=== PATIENT | female | born 1945 | race Caucasian/White ===

== ENCOUNTER 2018-05-02 14:57 | Inpatient (IN) | payer MEDICARE, OTHER ==
--- NOTE | 2018-05-02 16:25 | ED ---
General Adult HPI <Geoffrey Arrington - Last Filed: 05/02/18 17:33> - General Source: patient, RN notes reviewed Mode of arrival: ambulatory Limitations: no limitations <Larry Guy - Last Filed: 05/02/18 17:35> - General Chief complaint: Wound/Laceration Stated complaint: wounds not healing Time Seen by Provider: 05/02/18 15:51 - History of Present Illness Initial comments: This is a 72-year-old female presents emergency Department from a body art technician office for chronic wounds. Patient states that she's been having worsening wounds to her left leg and which she has been on Keflex 4 times a day for last 7 days with worsening symptoms. She states that she's had prior amputation and multiple infections secondary to being diabetic and have diabetic foot wound. Patient states that her body art technician Dr. Reyna recommended her to go emergency department for IV antibiotic secondary to worsening wounds after being on Keflex. Patient reports no fever or chills. She has neuropathy of her feet and legs and has no current pain. (Larry Guy) - Related Data Home Medications Medication Instructions Recorded Confirmed Cephalexin [Keflex] 500 mg PO Q6HR 05/02/18 05/02/18 Clopidogrel [Plavix] 75 mg PO DAILY 05/02/18 05/02/18 Enalapril [Vasotec] 20 mg PO DAILY 05/02/18 05/02/18 Escitalopram [Lexapro] 20 mg PO DAILY 05/02/18 05/02/18 Gabapentin 800 mg PO BID 05/02/18 05/02/18 Gentamicin 0.1% Cream 1 applic TOPICAL BID 05/02/18 05/02/18 Hydrochlorothiazide 50 mg PO DAILY 05/02/18 05/02/18 Ibuprofen [Motrin Ib] 400 mg PO Q6H PRN 05/02/18 05/02/18 Insulin NPH Hum/Reg Insulin Hm 80 unit SQ BID 05/02/18 05/02/18 [NovoLIN 70-30 100 UNIT/ML VIAL] Lovastatin [Mevacor] 20 mg PO HS 05/02/18 05/02/18 metFORMIN HCL 1,000 mg PO BID 05/02/18 05/02/18 Allergies Allergy/AdvReac Type Severity Reaction Status Date / Time adhesive tape Allergy Unknown Verified 05/02/18 17:06 miconazole Allergy Unknown Verified 05/02/18 17:06 [From Neosporin AF] morphine Allergy Unknown Verified 05/02/18 17:06 Penicillins Allergy Unknown Verified 05/02/18 17:06 Sulfa (Sulfonamide Allergy Unknown Verified 05/02/18 17:06 Antibiotics) Review of Systems ROS Other: All systems not noted in ROS Statement are negative. <Geoffrey Arrington - Last Filed: 05/02/18 17:33> ROS Other: All systems not noted in ROS Statement are negative. <Larry Guy - Last Filed: 05/02/18 17:35> ROS Statement: Those systems with pertinent positive or pertinent negative responses have been documented in the HPI. Past Medical History Past Medical History: Diabetes Mellitus, Hyperlipidemia, Hypertension Additional Past Medical History / Comment(s): 3 TOES AMPUTATED History of Any Multi-Drug Resistant Organisms: None Reported Additional Past Surgical History / Comment(s): CYST REMOVAL ON LEGS Past Psychological History: No Psychological Hx Reported Smoking Status: Former smoker Past Alcohol Use History: Occasional Past Drug Use History: None Reported <Larry Guy - Last Filed: 05/02/18 17:35> General Exam Limitations: no limitations General appearance: alert, in no apparent distress Head exam: Present: atraumatic, normocephalic, normal inspection Neck exam: Present: normal inspection. Absent: tenderness, meningismus, lymphadenopathy Respiratory exam: Present: normal lung sounds bilaterally. Absent: respiratory distress, wheezes, rales, rhonchi, stridor Cardiovascular Exam: Present: regular rate, normal rhythm, normal heart sounds. Absent: systolic murmur, diastolic murmur, rubs, gallop, clicks Extremities exam: Present: other (Left lower extremity there are some wounds noted, one open wound with mild erythema increased warmth noted left lower extremity pulses equal bilaterally the lower extremities are amputation of digits 2 and 3 on the left.) Skin exam: Present: warm, dry, intact, normal color. Absent: rash <Larry Guy - Last Filed: 05/02/18 17:35> Course <Geoffrey Arrington - Last Filed: 05/02/18 17:33> <Larry Guy - Last Filed: 05/02/18 17:35> Vital Signs 05/02/18 15:31 Temperature 98.4 F Pulse Rate 91 Respiratory 16 Rate Blood Pressure 96/57 O2 Sat by Pulse 93 L Oximetry - Reevaluation(s) Reevaluation #1: 05/02/18 17:34 Patient reevaluated and resting comfortably in bed. Patient does have evidence of cellulitis of left lower leg. Distally the extremity is neurovascularly intact. Family states no improvement despite outpatient antibiotics for the past week. Patient does not meet sepsis criteria. Case was discussed in detail with Dr. Rangel, who will admit for Dr. spencer. (Geoffrey Arrington) Medical Decision Making - Lab Data Result diagrams: 05/02/18 16:40 05/02/18 16:40 <Geoffrey Arrington - Last Filed: 05/02/18 17:33> - Lab Data Result diagrams: 05/02/18 16:40 05/02/18 16:40 <Larry Guy - Last Filed: 05/02/18 17:35> - Lab Data Lab Results 05/02/18 05/02/18 05/02/18 Range/Units 16:40 16:40 16:40 WBC 10.6 (3.8-10.6) k/uL RBC 5.45 H (3.80-5.40) m/uL Hgb 15.6 (11.4-16.0) gm/dL Hct 50.3 H (34.0-46.0) % MCV 92.4 (80.0-100.0) fL MCH 28.7 (25.0-35.0) pg MCHC 31.1 (31.0-37.0) g/dL RDW 14.2 (11.5-15.5) % Plt Count 251 (150-450) k/uL Neutrophils % 71 % Lymphocytes % 18 % Monocytes % 7 % Eosinophils % 2 % Basophils % 1 % Neutrophils # 7.5 (1.3-7.7) k/uL Lymphocytes # 1.9 (1.0-4.8) k/uL Monocytes # 0.7 (0-1.0) k/uL Eosinophils # 0.2 (0-0.7) k/uL Basophils # 0.1 (0-0.2) k/uL PT 11.1 (9.0-12.0) sec INR 1.1 (<1.2) APTT 19.8 L (22.0-30.0) sec Sodium 140 (137-145) mmol/L Potassium 4.6 (3.5-5.1) mmol/L Chloride 101 (98-107) mmol/L Carbon Dioxide 30 (22-30) mmol/L Anion Gap 9 mmol/L BUN 25 H (7-17) mg/dL Creatinine 0.83 (0.52-1.04) mg/dL Est GFR (CKD-EPI)AfAm 83 (>60 ml/min/1.73 sqM) Est GFR (CKD-EPI)NonAf 72 (>60 ml/min/1.73 sqM) Glucose 101 H (74-99) mg/dL Calcium 8.7 (8.4-10.2) mg/dL Total Bilirubin 0.9 (0.2-1.3) mg/dL AST 23 (14-36) U/L ALT 27 (9-52) U/L Alkaline Phosphatase 72 (38-126) U/L Total Protein 6.2 L (6.3-8.2) g/dL Albumin 3.5 (3.5-5.0) g/dL Disposition <Geoffrey Arrington - Last Filed: 05/02/18 17:33> <Larry Guy - Last Filed: 05/02/18 17:35> Clinical Impression: Cellulitis of left leg, Failure of outpatient treatment Disposition: ADMITTED IP TO THIS HOSP Condition: Stable Referrals: Socorro Fry MD [Primary Care Provider] - 1-2 days
--- NOTE | 2018-05-02 16:42 | XR ---
EXAMINATION TYPE: XR tibia fibula LT DATE OF EXAM: 05/02/2018 COMPARISON: None HISTORY: Nonhealing wound lower extremity TECHNIQUE: 2 view tibia and fibula FINDINGS: Soft tissues appear normal. Osseous structures appear normal. Vascular calcification is pre sent. Degenerative joint changes are at the knee. IMPRESSION: 1. No suspicious acute osseous abnormality. 2. If there is sufficient clinical concern for osteomyelitis, three-phase bone scan could be performe d.
[2018-05-02 17:00] LABS: Basophils # (A) 0.1 k/uL (0-0.2); Basophils % (A) 1 %; Eosinophils # (A) 0.2 k/uL (0-0.7); Eosinophils % (A) 2 %; HCT 50.3 % (34.0-46.0); HGB 15.6 gm/dL (11.4-16.0); Lymphocytes # (A) 1.9 k/uL (1.0-4.8); Lymphocytes % (A) 18 %; MCH 28.7 pg (25.0-35.0); MCHC 31.1 g/dL (31.0-37.0); MCV 92.4 fL (80.0-100.0); Mean Platelet Volume 7.5; Monocytes # (A) 0.7 k/uL (0-1.0); Monocytes % (A) 7 %; Neutrophils # (A) 7.5 k/uL (1.3-7.7); Neutrophils % (A) 71 %; Platelet Count 251 k/uL (150-450); RBC 5.45 m/uL (3.80-5.40); RDW 14.2 % (11.5-15.5); WBC 10.6 k/uL (3.8-10.6)
[2018-05-02 17:14] LABS: Albumin 3.5 g/dL (3.5-5.0); Calcium 8.7 mg/dL (8.4-10.2); Potassium 4.6 mmol/L (3.5-5.1); Total Bilirubin 0.9 mg/dL (0.2-1.3); Total Protein 6.2 g/dL (6.3-8.2)
[2018-05-02 17:16] LABS: INR 1.1 (<1.2); Prothrombin Time 11.1 sec (9.0-12.0)
[2018-05-02 17:28] LABS: Partial Thromboplastin Time 19.8 sec (22.0-30.0)
[2018-05-02] MEDS ORDERED: VANCOMYCIN IV PER PHARMACY 1 EACH MISC MISCELLANE PRN (17:33)
[2018-05-02] MEDS ORDERED: VANCOMYCIN 2,250 MG in SODIUM CHLORIDE 0.9% 500 ML IVPB STA (17:36)
[2018-05-02 20:08] LABS: Glucose,Whole Blood 92 mg/dL (75-99)
[2018-05-02] MEDS: INSULIN NPH/REG INSULIN 70/30 300 UNIT/3 ML VIAL SQ SCH (23:27)
[2018-05-02] MEDS: GABAPENTIN 400 MG CAP PO SCH (23:27)
[2018-05-02] MEDS: ATORVASTATIN 10 MG TAB PO SCH (23:28)
[2018-05-03 03:25] LABS: Glucose,Whole Blood 58 mg/dL (75-99)
[2018-05-03 03:35] LABS: Glucose,Whole Blood 76 mg/dL (75-99)
[2018-05-03] MEDS: VANCOMYCIN 2,250 MG in SODIUM CHLORIDE 0.9% 500 ML IVPB SCH ×2 (05:50→21:24)
[2018-05-03 07:29] LABS: Glucose,Whole Blood 82 mg/dL (75-99)
[2018-05-03] MEDS: INSULIN NPH/REG INSULIN 70/30 300 UNIT/3 ML VIAL SQ SCH ×2 (08:41→21:23)
[2018-05-03] MEDS: LISINOPRIL 20 MG TAB PO SCH (08:46)
[2018-05-03] MEDS: GABAPENTIN 400 MG CAP PO SCH ×2 (08:46→21:23)
[2018-05-03] MEDS: ESCITALOPRAM 20 MG TAB PO SCH (08:46)
[2018-05-03] MEDS: CLOPIDOGREL 75 MG TAB PO SCH (08:46)
[2018-05-03] MEDS: HYDROCHLOROTHIAZIDE 50 MG TAB PO SCH (08:47)
[2018-05-03 11:59] LABS: Glucose,Whole Blood 104 mg/dL (75-99)
--- NOTE | 2018-05-03 14:39 | P.HPIM ---
History of Present Illness H&P Date: 05/03/18 Chief Complaint: Left lower extremity cellulitis Lindsey Galarza is a 72-year-old female patient of Dr. Marybeth roach, who presented to [facility] emergency room due to left lower extremity erythema swelling and tenderness in the pretibial area. Patient stated that she started developing a fluid-filled blister in the left pretibial area she was seen by her primary care physician and by her shirt line operator Dr. Reyna she was placed on an oral course of antibiotic Keflex however her condition continued to worsen, she was reevaluated by her shirt line operator and was told to come to emergency room for further evaluation and treatment with IV antibiotic due to failure of oral antibiotic therapy as outpatient. Patient had a prolonged history of bilateral lower extremity infections she has previous amputation of 2 toes on the left foot and one toe on the right foot due to previous infections, she has known history of diabetes mellitus maintained on insulin with good control per patient she states that her last hemoglobin A1c was 7.3 She states that she recently had an arterial and venous Doppler of the lower extremity as outpatient. Past Medical History Past Medical History: Diabetes Mellitus, Hyperlipidemia, Hypertension, Osteoarthritis (OA), Pneumonia Additional Past Medical History / Comment(s): neuropathy to legs/feet, lt eye gets blurry at times,occ heart burn takes tums,wounds lt lower ext History of Any Multi-Drug Resistant Organisms: None Reported Past Surgical History: Tonsillectomy Additional Past Surgical History / Comment(s): CYST REMOVAL ON LEGS, rt 3rd toe amp, left 2nd and 3rd toes amp, benign lumps removed from breasts, melita cataracts , venous doppler studies Past Anesthesia/Blood Transfusion Reactions: No Reported Reaction Additional Past Anesthesia/Blood Transfusion Reaction / Comment(s): clausterphobia Smoking Status: Former smoker - Past Family History Father Family Medical History: Myocardial Infarction ([place]) Additional Family Medical History / Comment(s): smoked Mother Family Medical History: CVA/TIA Additional Family Medical History / Comment(s): heart problems, schizophrenia Brother(s) Family Medical History: Cancer Additional Family Medical History / Comment(s): pancareatic cacner Medications and Allergies Home Medications Medication Instructions Recorded Confirmed Type Cephalexin [Keflex] 500 mg PO Q6HR 05/02/18 05/02/18 History Clopidogrel [Plavix] 75 mg PO DAILY 05/02/18 05/02/18 History Enalapril [Vasotec] 20 mg PO DAILY 05/02/18 05/02/18 History Escitalopram [Lexapro] 20 mg PO DAILY 05/02/18 05/02/18 History Gabapentin 800 mg PO BID 05/02/18 05/02/18 History Gentamicin 0.1% Cream 1 applic TOPICAL BID 05/02/18 05/02/18 History Hydrochlorothiazide 50 mg PO DAILY 05/02/18 05/02/18 History Ibuprofen [Motrin Ib] 400 mg PO Q6H PRN 05/02/18 05/02/18 History Insulin NPH Hum/Reg Insulin Hm 80 unit SQ BID 05/02/18 05/02/18 History [NovoLIN 70-30 100 UNIT/ML VIAL] Lovastatin [Mevacor] 20 mg PO HS 05/02/18 05/02/18 History metFORMIN HCL 1,000 mg PO BID 05/02/18 05/02/18 History Allergies Allergy/AdvReac Type Severity Reaction Status Date / Time adhesive tape Allergy Unknown Verified 05/02/18 17:06 miconazole Allergy Unknown Verified 05/02/18 17:06 [From Neosporin AF] morphine Allergy Unknown Verified 05/02/18 21:07 Penicillins Allergy Unknown Verified 05/02/18 17:06 Sulfa (Sulfonamide Allergy Unknown Verified 05/02/18 17:06 Antibiotics) Physical Exam Vitals: Vital Signs Temp Pulse Pulse Resp BP BP Pulse Ox 05/03/18 08:00 82 16 05/03/18 03:27 82 128/105 05/02/18 18:50 98.2 F 90 16 105/66 98 05/02/18 17:00 98.7 F 95 16 108/60 95 05/02/18 15:31 98.4 F 91 16 96/57 93 L Intake and Output 05/02/18 05/03/18 05/03/18 22:59 06:59 14:59 Intake Total 500 620 480 Balance 500 620 480 Intake: IV 500 620 Vancomycin 2,250 mg In 500 Sodium Chloride 0.9% 500 ml @ 167 mls/hr IVPB ONCE STA Rx#:[id number] Vancomycin 2,250 mg In 500 Sodium Chloride 0.9% 500 ml @ 167 mls/hr IVPB Q16H NELA Rx#:[id number] ns@20 120 Oral 480 Other: Voiding Method Toilet Toilet # Voids 1 1 Weight 158.757 kg HEENT head normocephalic and atraumatic Neck is supple no JVD no goiter no lymphadenopathy Chest exam reveals a few scattered crackles no wheezing Cardiac exam reveals regular heart sounds S1 and S2 no gallops no murmurs Abdomen is soft nontender no organomegaly with normal bowel sounds Extremity exam reveals 1+ edema bilaterally there is erythema and tenderness in the left pretibial area there is healing blister in the left pretibial area Neurological examination reveals no gross focal deficits Results CBC & Chem 7: 05/02/18 16:40 05/02/18 16:40 Labs: Abnormal Lab Results - Last 24 Hours (Table) 05/02/18 05/02/18 05/02/18 Range/Units 16:40 16:40 16:40 RBC 5.45 H (3.80-5.40) m/uL Hct 50.3 H (34.0-46.0) % APTT 19.8 L (22.0-30.0) sec BUN 25 H (7-17) mg/dL Glucose 101 H (74-99) mg/dL POC Glucose (mg/dL) (75-99) mg/dL Total Protein 6.2 L (6.3-8.2) g/dL 05/03/18 05/03/18 Range/Units 03:23 11:58 RBC (3.80-5.40) m/uL Hct (34.0-46.0) % APTT (22.0-30.0) sec BUN (7-17) mg/dL Glucose (74-99) mg/dL POC Glucose (mg/dL) 58 L 104 H (75-99) mg/dL Total Protein (6.3-8.2) g/dL Microbiology - Last 24 Hours (Table) 05/02/18 18:01 Gram Stain - Preliminary Leg - Left Wound Culture - Preliminary Assessment and Plan Plan: #1 left lower extremity cellulitis in the pretibial area, with failed oral antibiotic treatment as outpatient currently maintained on IV vancomycin, blood culture are pending #2 underlying history of multiple infections in the past and previous toe amputations due to previous infections #3 underlying history of diabetes mellitus #4 underlying history of depression #5 underlying history of morbid obesity #6 underlying history of hyperlipidemia maintained on Lipitor #7 underlying history of referral neuropathy maintained on Neurontin At this time continue with IV antibiotic Home medications reviewed and reordered Awaiting culture results Infectious disease consultation was requested Will follow closely
[2018-05-03 21:23] LABS: Glucose,Whole Blood 109 mg/dL (75-99)
[2018-05-03] MEDS: ATORVASTATIN 10 MG TAB PO SCH (21:23)
[2018-05-04 07:17] LABS: Glucose,Whole Blood 108 mg/dL (75-99)
[2018-05-04] MEDS: ACETAMINOPHEN TAB 325 MG TAB PO PRN (08:10)
[2018-05-04] MEDS: HYDROCHLOROTHIAZIDE 50 MG TAB PO SCH (08:16)
[2018-05-04] MEDS: GABAPENTIN 400 MG CAP PO SCH ×2 (08:16→20:53)
[2018-05-04] MEDS: LISINOPRIL 20 MG TAB PO SCH (08:16)
[2018-05-04] MEDS: INSULIN NPH/REG INSULIN 70/30 300 UNIT/3 ML VIAL SQ SCH ×2 (08:16→22:14)
[2018-05-04] MEDS: CLOPIDOGREL 75 MG TAB PO SCH (08:16)
[2018-05-04] MEDS: ESCITALOPRAM 20 MG TAB PO SCH (08:16)
[2018-05-04 11:17] LABS: Albumin 3.5 g/dL (3.5-5.0); Calcium 8.6 mg/dL (8.4-10.2); Potassium 5.4 mmol/L (3.5-5.1); Total Protein 6.6 g/dL (6.3-8.2)
[2018-05-04 11:18] LABS: Basophils % (A) 1 %; Eosinophils # (A) 0.2 k/uL (0-0.7); Eosinophils % (A) 3 %; HCT 47.8 % (34.0-46.0); HGB 15.1 gm/dL (11.4-16.0); Hypochromasia Slight; Lymphocytes # (A) 1.7 k/uL (1.0-4.8); Lymphocytes % (A) 21 %; MCH 29.6 pg (25.0-35.0); MCHC 31.7 g/dL (31.0-37.0); MCV 93.3 fL (80.0-100.0); Mean Platelet Volume 7.8; Monocytes # (A) 0.7 k/uL (0-1.0); Monocytes % (A) 10 %; Neutrophils # (A) 4.9 k/uL (1.3-7.7); Neutrophils % (A) 63 %; Platelet Count 216 k/uL (150-450); RBC 5.12 m/uL (3.80-5.40); RDW 14.2 % (11.5-15.5); WBC 7.8 k/uL (3.8-10.6)
[2018-05-04 11:26] LABS: Glucose,Whole Blood 182 mg/dL (75-99)
[2018-05-04] MEDS: VANCOMYCIN 2,250 MG in SODIUM CHLORIDE 0.9% 500 ML IVPB SCH (14:29)
--- NOTE | 2018-05-04 14:35 | P.PN ---
Subjective Progress Note Date: 05/04/18 Lindsey Galarza is a 72-year-old female patient of Dr. Marybeth roach, who presented to [facility] emergency room due to left lower extremity erythema swelling and tenderness in the pretibial area. Patient stated that she started developing a fluid-filled blister in the left pretibial area she was seen by her primary care physician and by her sales engineer account manager Dr. Reyna she was placed on an oral course of antibiotic Keflex however her condition continued to worsen, she was reevaluated by her sales engineer account manager and was told to come to emergency room for further evaluation and treatment with IV antibiotic due to failure of oral antibiotic therapy as outpatient. Patient had a prolonged history of bilateral lower extremity infections she has previous amputation of 2 toes on the left foot and one toe on the right foot due to previous infections, she has known history of diabetes mellitus maintained on insulin with good control per patient she states that her last hemoglobin A1c was 7.3 She states that she recently had an arterial and venous Doppler of the lower extremity as outpatient. On 05/04/2018 patient was seen and examined on the fifth floor she is alert and oriented 3 in no apparent distress she is still complaining of swelling erythema and tenderness in the left lower extremity pretibial area there is minimal change since yesterday, otherwise she denies any complaints at this time. Objective - Vital Signs Vital signs: Vital Signs Temp 97.7 F 05/04/18 12:57 Pulse 76 05/04/18 12:57 Resp 18 05/04/18 12:57 BP 134/65 05/04/18 12:57 Pulse Ox 93 L 05/04/18 12:57 Intake & Output 05/03/18 05/04/18 05/04/18 18:59 06:59 18:59 Intake Total 2180 960 1460 Balance 2180 960 1460 Intake: IV 720 Vancomycin 2,250 mg In 500 Sodium Chloride 0.9% 500 ml @ 167 mls/hr IVPB Q16H NELA Rx#:[id number] ns@20 220 Intake, IV Titration 500 500 Amount Vancomycin 2,250 mg In 500 Sodium Chloride 0.9% 500 ml @ 167 mls/hr IVPB ONCE STA Rx#:[id number] Vancomycin 2,250 mg In 500 Sodium Chloride 0.9% 500 ml @ 167 mls/hr IVPB Q16H NELA Rx#:[id number] Oral 1680 240 960 Other: Voiding Method Toilet Toilet Toilet # Voids 3 3 - Exam HEENT head normocephalic and atraumatic Neck is supple no JVD no goiter no lymphadenopathy Chest exam reveals a few scattered crackles no wheezing Cardiac exam reveals regular heart sounds S1 and S2 no gallops no murmurs Abdomen is soft nontender no organomegaly with normal bowel sounds Extremity exam reveals 1+ edema bilaterally there is erythema and tenderness in the left pretibial area there is healing blister in the left pretibial area Neurological examination reveals no gross focal deficits - Labs CBC & Chem 7: 05/04/18 10:20 05/04/18 10:20 Labs: Abnormal Lab Results - Last 24 Hours (Table) 05/03/18 05/04/18 05/04/18 Range/Units 21:22 07:15 10:20 Hct 47.8 H (34.0-46.0) % Potassium (3.5-5.1) mmol/L Carbon Dioxide (22-30) mmol/L BUN (7-17) mg/dL Glucose (74-99) mg/dL POC Glucose (mg/dL) 109 H 108 H (75-99) mg/dL 05/04/18 05/04/18 Range/Units 10:20 11:23 Hct (34.0-46.0) % Potassium 5.4 H (3.5-5.1) mmol/L Carbon Dioxide 31 H (22-30) mmol/L BUN 36 H (7-17) mg/dL Glucose 212 H (74-99) mg/dL POC Glucose (mg/dL) 182 H (75-99) mg/dL Microbiology - Last 24 Hours (Table) 05/02/18 18:01 Gram Stain - Preliminary Leg - Left Wound Culture - Preliminary 05/02/18 16:40 Blood Culture - Preliminary Blood No Growth after 24 hours Assessment and Plan Plan: #1 left lower extremity cellulitis in the pretibial area, with failed oral antibiotic treatment as outpatient currently maintained on IV vancomycin, blood culture are pending. Infectious disease consult requested #2 underlying history of multiple infections in the past and previous toe amputations due to previous infections #3 underlying history of diabetes mellitus #4 underlying history of depression #5 underlying history of morbid obesity #6 underlying history of hyperlipidemia maintained on Lipitor #7 underlying history of referral neuropathy maintained on Neurontin At this time continue with IV antibiotic Home medications reviewed and reordered Awaiting culture results Infectious disease consultation was requested Will follow closely
--- NOTE | 2018-05-04 17:44 | P.CONS ---
History of Present Illness - Reason for Consult Consult date: 05/04/18 - Chief Complaint Lesions on left leg - History of Present Illness 72-year-old female who suffers from superobesity as well as diabetes mellitus type 2 she relates is quite well controlled. We discussed that the most recent data we have in our hospital system is an A1c of greater than 8 at would not indicate adequate control of her diabetes. She's been having difficulties with the lower extremities with severe peripheral vascular disease and has had prior amputations including 2 toes on the left foot in a single toe from the right foot. She relates that she has known severe peripheral vascular disease and has had multiple interventions in the past including multiple peripheral arterial procedures with arthrectomy's but does not believe that she has stents. She believes most of the work has been done on the right leg but is unclear if it's been done on her left leg in the past. She's been following with her relocation associate because she's been having difficulties with the lower extremity she was placed on oral antimicrobial therapy and despite this the ulcerations to the left lower extremity worsened she had increasing cellulitis in counseling was directed to the emergency center. She subsequently has been admitted and the infectious diseases consultation was requested regarding the progressive cellulitis and ulceration to the left lower extremity. The vascular surgery consult is ordered been requested to further evaluate her known severe peripheral vascular disease and its impact on the current ulcerations. Review of Systems 72-year-old woman who is somewhat uncomfortable due to the ulcerations in her left leg. HEENT:Denies headache or acute visual change. Denies sinus or mouth discomforts. Denies neck stiffness or pain. Denies significant oral cavity pain. Denies difficulty on swallowing. Lungs: Denies significant shortness of breath, cough, sputum production, or hemoptysis. Cardiovascular: Denies significant shortness of breath, chest pain, chest wall pain, orthopnea, dyspnea on exertion, syncope Gastrointestinal:Denies nausea, vomiting, diarrhea, constipation, hematemesis, melena, hematochezia. No no significant change of bowel habit noticed. Musculoskeletal: She has chronic lower extremity edema and chronic pain and chronic back pain Skin: Chronic bilateral lower extremity edema now with ulcerations as per the HPI and the left leg. Ulcers to the right leg and healed in the recent past. Neuro: Denies headache or visual change. Denies any new onset weakness or difficulty with ambulation. Denies falls or seizures. Psychiatric:Denies anxiety or depression. Endocrine: Denies significant fatigue, denies significant weight loss or weight gain. Past Medical History Past Medical History: Diabetes Mellitus, Hyperlipidemia, Hypertension, Osteoarthritis (OA), Pneumonia Additional Past Medical History / Comment(s): neuropathy to legs/feet, lt eye gets blurry at times,occ heart burn takes tums,wounds lt lower ext History of Any Multi-Drug Resistant Organisms: None Reported Past Surgical History: Tonsillectomy Additional Past Surgical History / Comment(s): CYST REMOVAL ON LEGS, rt 3rd toe amp, left 2nd and 3rd toes amp, benign lumps removed from breasts, melita cataracts , venous doppler studies Past Anesthesia/Blood Transfusion Reactions: No Reported Reaction Additional Past Anesthesia/Blood Transfusion Reaction / Comm: clausterphobia Additional Psychological History / Comment(s): Single. Her sister is her primary quality assurance coach and primary contact. Stopped smoking 30 years ago. No significant history of alcohol or recreational drug use. No experience no international travel. 2 Dogs and 2 pet cats in the home Smoking Status: Former smoker - Past Family History Father Family Medical History: Myocardial Infarction (NM) Additional Family Medical History / Comment(s): smoked Mother Family Medical History: CVA/TIA Additional Family Medical History / Comment(s): heart problems, schizophrenia Brother(s) Family Medical History: Cancer Additional Family Medical History / Comment(s): pancareatic cacner Medications and Allergies Home Medications and Allergies Comment(s): Current Medications Acetaminophen (Tylenol Tab) 650 mg PO Q6HR PRN PRN Reason: Mild Pain or Fever > 100.5 Last Admin: 05/04/18 08:10 Dose: 650 mg Atorvastatin Calcium (Lipitor) 10 mg PO [facility] Last Admin: 05/03/18 21:23 Dose: 10 mg Clopidogrel Bisulfate (Plavix) 75 mg PO DAILY [facility] Last Admin: 05/04/18 08:16 Dose: 75 mg Escitalopram Oxalate (Lexapro) 20 mg PO DAILY [facility] Last Admin: 05/04/18 08:16 Dose: 20 mg Gabapentin (Neurontin) 800 mg PO BID [facility] Last Admin: 05/04/18 08:16 Dose: 800 mg Hydrochlorothiazide (Hydrodiuril) 50 mg PO DAILY [facility] Last Admin: 05/04/18 08:16 Dose: 50 mg Vancomycin HCl 2,250 mg/ (Sodium Chloride) 500 mls @ 167 mls/hr IVPB Q16H [facility] Last Admin: 05/04/18 14:29 Dose: 167 mls/hr Insulin Human Isoph/Insulin Regular (Humulin 70/30 Vial) 80 unit SQ BID [facility] Last Admin: 05/04/18 08:16 Dose: 80 unit Lisinopril (Zestril) 40 mg PO DAILY [facility] Last Admin: 05/04/18 08:16 Dose: 40 mg Miscellaneous Information (Vancomycin Trough Due) 0 each MISCELLANE DIRECTED ONE Stop: 05/05/18 05:01 Home Medications Medication Instructions Recorded Confirmed Type Cephalexin [Keflex] 500 mg PO Q6HR 05/02/18 05/02/18 History Clopidogrel [Plavix] 75 mg PO DAILY 05/02/18 05/02/18 History Enalapril [Vasotec] 20 mg PO DAILY 05/02/18 05/02/18 History Escitalopram [Lexapro] 20 mg PO DAILY 05/02/18 05/02/18 History Gabapentin 800 mg PO BID 05/02/18 05/02/18 History Gentamicin 0.1% Cream 1 applic TOPICAL BID 05/02/18 05/02/18 History Hydrochlorothiazide 50 mg PO DAILY 05/02/18 05/02/18 History Ibuprofen [Motrin Ib] 400 mg PO Q6H PRN 05/02/18 05/02/18 History Insulin NPH Hum/Reg Insulin Hm 80 unit SQ BID 05/02/18 05/02/18 History [NovoLIN 70-30 100 UNIT/ML VIAL] Lovastatin [Mevacor] 20 mg PO HS 05/02/18 05/02/18 History metFORMIN HCL 1,000 mg PO BID 05/02/18 05/02/18 History Allergies Allergy/AdvReac Type Severity Reaction Status Date / Time adhesive tape Allergy Unknown Verified 05/02/18 17:06 miconazole Allergy Unknown Verified 05/02/18 17:06 [From Neosporin AF] morphine Allergy Unknown Verified 05/02/18 21:07 Penicillins Allergy Unknown Verified 05/02/18 17:06 Sulfa (Sulfonamide Allergy Unknown Verified 05/02/18 17:06 Antibiotics) Physical Exam Vitals: Vital Signs Temp Pulse Resp BP Pulse Ox 05/04/18 12:57 97.7 F 76 18 134/65 93 L 05/04/18 08:00 76 18 05/04/18 07:15 97.5 F L 76 18 136/64 96 05/03/18 21:27 97.9 F 80 20 124/70 96 Intake and Output 05/04/18 05/04/18 05/04/18 06:59 14:59 22:59 Intake Total 160 1460 Balance 160 1460 Intake: IV 160 ns@20 160 Intake, IV Titration 500 Amount Vancomycin 2,250 mg In 500 Sodium Chloride 0.9% 500 ml @ 167 mls/hr IVPB Q16H [facility] Rx#:[id number] Oral 960 Other: Voiding Method Toilet # Voids 3 Pleasant 72-year-old female who suffers from superobesity but is comfortable at this time HEENT: Anicteric conjunctiva are pink and moist nasal mucosa grossly intact without significant lesions, there is no thrush. Dentition is poor for age Neck: The neck is supple without significant lymphadenopathy or thyromegaly. Lungs: Good bilateral air entry without significant crackles or wheezing. There is no significant bronchial sounds. There is no egophony or dullness. Heart: Regular rate and rhythm with an audible S1-S2, no S3 no S4. There is no significant murmur click or rub, PMI was nondisplaced. Abdomen: Obese, Positive bowel sounds soft and nontender without palpable masses or organomegaly. There was no guarding or rebound. Extremities: The upper extremities are intact, the IV site is intact without difficulty. No lesions are noted on the upper extremities. The lower extremities evidence of chronic changes with chronic discoloration with hemosiderin staining, evidence of the amputations the 2 toes on the left foot and single toe from the right foot. The amputation sites are well-healed with no evidence of a necrosis or open ulcerations at this time. The lower extremities have evidence of the chronic edema. There are no ulcerations on the right lower extremity. The left lower extremities is evidence of the cluster of ulcerations on the left pretibial area measuring approximately 7 x 6 x 0.2 cm that has evidence of a serous drainage. There is mild ascending erythema from the site. There was no palpable inguinal lymphadenopathy in the left groin. No other abnormal lymph nodes were palpated at this time. Neuro: Awake alert oriented to person place and time. There are no acute new gross focal sensory motor deficits. Results CBC & Chem 7: 05/04/18 10:20 05/04/18 10:20 Labs: Abnormal Lab Results - Last 24 Hours (Table) 05/03/18 05/04/18 05/04/18 Range/Units 21:22 07:15 10:20 Hct 47.8 H (34.0-46.0) % Potassium (3.5-5.1) mmol/L Carbon Dioxide (22-30) mmol/L BUN (7-17) mg/dL Glucose (74-99) mg/dL POC Glucose (mg/dL) 109 H 108 H (75-99) mg/dL 05/04/18 05/04/18 Range/Units 10:20 11:23 Hct (34.0-46.0) % Potassium 5.4 H (3.5-5.1) mmol/L Carbon Dioxide 31 H (22-30) mmol/L BUN 36 H (7-17) mg/dL Glucose 212 H (74-99) mg/dL POC Glucose (mg/dL) 182 H (75-99) mg/dL Microbiology - Last 24 Hours (Table) 05/02/18 18:01 Gram Stain - Preliminary Leg - Left Wound Culture - Preliminary 05/02/18 16:40 Blood Culture - Preliminary Blood No Growth after 24 hours Laboratory Results WBC 7.8 k/uL (3.8-10.6) 05/04/18 10:20 RBC 5.12 m/uL (3.80-5.40) 05/04/18 10:20 Hgb 15.1 gm/dL (11.4-16.0) 05/04/18 10:20 Hct 47.8 % (34.0-46.0) H 05/04/18 10:20 MCV 93.3 fL (80.0-100.0) 05/04/18 10:20 MCH 29.6 pg (25.0-35.0) 05/04/18 10:20 MCHC 31.7 g/dL (31.0-37.0) 05/04/18 10:20 RDW 14.2 % (11.5-15.5) 05/04/18 10:20 Plt Count 216 k/uL (150-450) 05/04/18 10:20 Neutrophils % 63 % 05/04/18 10:20 Lymphocytes % 21 % 05/04/18 10:20 Monocytes % 10 % 05/04/18 10:20 Eosinophils % 3 % 05/04/18 10:20 Basophils % 1 % 05/04/18 10:20 Neutrophils # 4.9 k/uL (1.3-7.7) 05/04/18 10:20 Lymphocytes # 1.7 k/uL (1.0-4.8) 05/04/18 10:20 Monocytes # 0.7 k/uL (0-1.0) 05/04/18 10:20 Eosinophils # 0.2 k/uL (0-0.7) 05/04/18 10:20 Basophils # 0.0 k/uL (0-0.2) 05/04/18 10:20 Hypochromasia Slight 05/04/18 10:20 PT 11.1 sec (9.0-12.0) 05/02/18 16:40 INR 1.1 (<1.2) 05/02/18 16:40 APTT 19.8 sec (22.0-30.0) L 05/02/18 16:40 Sodium 139 mmol/L (137-145) 05/04/18 10:20 Potassium 5.4 mmol/L (3.5-5.1) H 05/04/18 10:20 Chloride 102 mmol/L (98-107) 05/04/18 10:20 Carbon Dioxide 31 mmol/L (22-30) H 05/04/18 10:20 Anion Gap 6 mmol/L 05/04/18 10:20 BUN 36 mg/dL (7-17) H 05/04/18 10:20 Creatinine 0.88 mg/dL (0.52-1.04) 05/04/18 10:20 Est GFR (CKD-EPI)AfAm 78 (>60 ml/min/1.73 sqM) 05/04/18 10:20 Est GFR (CKD-EPI)NonAf 67 (>60 ml/min/1.73 sqM) 05/04/18 10:20 Glucose 212 mg/dL (74-99) H 05/04/18 10:20 POC Glucose (mg/dL) 182 mg/dL (75-99) H 05/04/18 11:23 POC Glu Painter Maintenance ID Diana Sung 05/04/18 11:23 Calcium 8.6 mg/dL (8.4-10.2) 05/04/18 10:20 Total Bilirubin 1.0 mg/dL (0.2-1.3) 05/04/18 10:20 AST 36 U/L (14-36) 05/04/18 10:20 ALT 31 U/L (9-52) 05/04/18 10:20 Alkaline Phosphatase 71 U/L (38-126) 05/04/18 10:20 Total Protein 6.6 g/dL (6.3-8.2) 05/04/18 10:20 Albumin 3.5 g/dL (3.5-5.0) 05/04/18 10:20 Microbiology 05/02/18 18:01 Leg - Left Gram Stain - Preliminary 05/02/18 18:01 Leg - Left Wound Culture - Preliminary 05/02/18 16:40 Blood Blood Culture - Preliminary No Growth after 24 hours Assessment and Plan (1) Failure of outpatient treatment Narrative/Plan: 72-year-old female presents to Hospital after evaluation in the outpatient setting for the ulcerations to her left lower extremity. Is related she has a known history of diabetes mellitus type 2 somewhat poorly controlled with progression of severe peripheral vascular disease lower extremity with prior toe amputations. It is time she's presenting with failure of oral antimicrobial therapy with progressive cellulitis and ulceration to the left pretibial area. At this time antimicrobial therapy with vancomycin is being utilized given her penicillin and sulfur ALLERGIES. Will initiate local wound care will silver sorb gel that can be applied daily over the ulcer sites and wrapped into place with roll gauze and Adrian. Await the evaluation from the vascular surgeon as to what the next steps shall be. Cultures are process which will further help direct antibiotic therapy. We'll check a hemoglobin A1c to further evaluate her glucose status. Current Visit: Yes Status: Acute Code(s): Z78.9 - OTHER SPECIFIED HEALTH STATUS SNOMED Code(s): 497435295 (2) Obesity, Class III, BMI 40-49.9 (morbid obesity) Current Visit: Yes Status: Acute Code(s): E66.01 - MORBID (SEVERE) OBESITY DUE TO EXCESS CALORIES SNOMED Code(s): 749059772 (3) Poorly controlled type 2 diabetes mellitus Current Visit: Yes Status: Acute Code(s): E11.65 - TYPE 2 DIABETES MELLITUS WITH HYPERGLYCEMIA SNOMED Code(s): 78990853
[2018-05-04 18:24] LABS: Glucose,Whole Blood 161 mg/dL (75-99)
[2018-05-04 19:56] LABS: Glucose,Whole Blood 190 mg/dL (75-99)
[2018-05-04] MEDS: ATORVASTATIN 10 MG TAB PO SCH (20:53)
[2018-05-05] MEDS: ACETAMINOPHEN TAB 325 MG TAB PO PRN (03:07)
[2018-05-05] MEDS ORDERED: VANCOMYCIN TROUGH DUE 1 EACH MISC MISCELLANE ONE (05:00)
[2018-05-05 05:57] LABS: Basophils % (A) 1 %; Eosinophils # (A) 0.2 k/uL (0-0.7); Eosinophils % (A) 3 %; HCT 45.1 % (34.0-46.0); HGB 13.8 gm/dL (11.4-16.0); Hypochromasia Slight; Lymphocytes # (A) 1.6 k/uL (1.0-4.8); Lymphocytes % (A) 21 %; MCH 28.6 pg (25.0-35.0); MCHC 30.7 g/dL (31.0-37.0); MCV 93.3 fL (80.0-100.0); Mean Platelet Volume 7.4; Monocytes # (A) 0.7 k/uL (0-1.0); Monocytes % (A) 10 %; Neutrophils # (A) 4.6 k/uL (1.3-7.7); Neutrophils % (A) 63 %; Platelet Count 187 k/uL (150-450); RBC 4.84 m/uL (3.80-5.40); RDW 14.2 % (11.5-15.5); WBC 7.3 k/uL (3.8-10.6)
[2018-05-05] MEDS: VANCOMYCIN 2,250 MG in SODIUM CHLORIDE 0.9% 500 ML IVPB SCH (05:57)
[2018-05-05 06:17] LABS: Albumin 2.9 g/dL (3.5-5.0); Calcium 8.3 mg/dL (8.4-10.2); Potassium 4.7 mmol/L (3.5-5.1); Total Bilirubin 0.8 mg/dL (0.2-1.3); Total Protein 5.7 g/dL (6.3-8.2)
[2018-05-05 07:08] LABS: Glucose,Whole Blood 75 mg/dL (75-99)
[2018-05-05] MEDS: CLOPIDOGREL 75 MG TAB PO SCH (08:17)
[2018-05-05] MEDS: GABAPENTIN 400 MG CAP PO SCH ×2 (08:17→21:28)
[2018-05-05] MEDS: ESCITALOPRAM 20 MG TAB PO SCH (08:17)
[2018-05-05] MEDS: HYDROCHLOROTHIAZIDE 50 MG TAB PO SCH (08:17)
[2018-05-05] MEDS: LISINOPRIL 20 MG TAB PO SCH (08:18)
[2018-05-05] MEDS: INSULIN NPH/REG INSULIN 70/30 300 UNIT/3 ML VIAL SQ SCH ×2 (08:23→21:29)
[2018-05-05] MEDS ORDERED: IBUPROFEN 800 MG TAB PO PRN (09:24)
[2018-05-05] MEDS: MULTIVITAMINS, THERA 1 EACH TAB PO SCH (11:08)
[2018-05-05 11:43] LABS: Glucose,Whole Blood 98 mg/dL (75-99)
[2018-05-05] MEDS ORDERED: IBUPROFEN 400 MG TAB PO PRN ×2 (12:20→14:06)
[2018-05-05 13:42] LABS: Hemoglobin A1C 7.9 % (4.0-6.0)
--- NOTE | 2018-05-05 14:04 | CDI ---
Last Revision, July 2017 Documentation Clarification Form Date: 05/05/2018 1:51:15 PM From: Rachele AndinoShannonBRITTON, CCDS Admit Date: 05/02/2018 5:34:00 PM Patient Name: Lindsey Galarza Visit Number: [id number] Discharge Date: ATTENTION: The Clinical Documentation Specialists (CDI) and [facility] Coding Staff appreciate your assistance in clarifying documentation. Please respond to the clarification below the line at the bottom and electronically sign. The CDI & [facility] Coding staff will review the response and follow-up if needed. Please note: Queries are made part of the Legal Health Record. If you have any questions, please contact the author of this message via ITS. Dr. Deni Jarquin MD: Per your 05/04 infectious disease consult: "Poorly controlled type 2 diabetes mellitus." History: Diabetes Mellitus II, Insulin dependent with diabetic neuropathy bilateral lower extremities. Clinical Indicators: LAB: Hgb A1c 7.9^ Treatment: Blood cultures, IV Vanco. In order to capture the severity of Illness and necessary documentation specificity, please clarify: DM Type 2 With Hyperglycemia With Hypoglycemia Other, please specify Unable to Determine DM Type 2 with hyperglycemia MTDD
--- NOTE | 2018-05-05 14:10 | P.PN ---
Subjective Progress Note Date: 05/05/18 Lindsey Galarza is a 72-year-old female patient of Dr. Marybeth roach, who presented to [facility] emergency room due to left lower extremity erythema swelling and tenderness in the pretibial area. Patient stated that she started developing a fluid-filled blister in the left pretibial area she was seen by her primary care physician and by her horticulture instructor Dr. Reyna she was placed on an oral course of antibiotic Keflex however her condition continued to worsen, she was reevaluated by her horticulture instructor and was told to come to emergency room for further evaluation and treatment with IV antibiotic due to failure of oral antibiotic therapy as outpatient. Patient had a prolonged history of bilateral lower extremity infections she has previous amputation of 2 toes on the left foot and one toe on the right foot due to previous infections, she has known history of diabetes mellitus maintained on insulin with good control per patient she states that her last hemoglobin A1c was 7.3 She states that she recently had an arterial and venous Doppler of the lower extremity as outpatient. On 05/04/2018 patient was seen and examined on the fifth floor she is alert and oriented 3 in no apparent distress she is still complaining of swelling erythema and tenderness in the left lower extremity pretibial area there is minimal change since yesterday, otherwise she denies any complaints at this time. 05/05/2018 patient is complaining of right shoulder pain today. She's reports sleeping on it wrong. She was given Motrin with improvement. She denies any injury to the shoulder. She reports that she's just been uncomfortable and this but. Her left leg is still showing significant cellulitis changes. Swelling is improving. Dr. Riggins has been consulted in regards to her history of peripheral vascular disease. She is currently on vancomycin and infectious disease is following. Objective - Vital Signs Vital signs: Vital Signs Temp 97.0 F L 05/05/18 05:00 Pulse 63 05/05/18 05:00 Resp 16 05/05/18 07:15 BP 149/65 05/05/18 05:00 Pulse Ox 94 L 05/05/18 05:00 Intake & Output 05/04/18 05/05/18 05/05/18 18:59 06:59 18:59 Intake Total 2630 201 6380 Balance 5576 982 6780 Intake: IV 240 ns@20 240 Intake, IV Titration 500 500 500 Amount Vancomycin 2,250 mg In 500 500 Sodium Chloride 0.9% 500 ml @ 167 mls/hr IVPB Q16H [facility] Rx#:[id number] Vancomycin 2,250 mg In 500 Sodium Chloride 0.9% 500 ml @ 167 mls/hr IVPB Q24H [facility] Rx#:[id number] Oral [id number] Other: Voiding Method Toilet Toilet Toilet # Voids 3 2 - Exam Head normocephalic Neck supple Lungs clear to auscultation bilaterally no wheezing or crackles Heart regular rate and rhythm S1-S2, no rub or gallop Abdomen is soft nontender nondistended positive bowel sounds no hepatosplenomegaly Extremities edema lower extremities improving left pretibial area evidence of erythema around a bandage. Neuro alert and orientated to 3 - Labs CBC & Chem 7: 05/05/18 05:22 05/05/18 05:22 Labs: Abnormal Lab Results - Last 24 Hours (Table) 05/04/18 05/04/18 05/05/18 Range/Units 18:12 19:55 05:22 MCHC (31.0-37.0) g/dL Carbon Dioxide (22-30) mmol/L BUN (7-17) mg/dL Glucose (74-99) mg/dL POC Glucose (mg/dL) 161 H 190 H (75-99) mg/dL Hemoglobin A1c 7.9 H (4.0-6.0) % Calcium (8.4-10.2) mg/dL Total Protein (6.3-8.2) g/dL Albumin (3.5-5.0) g/dL 05/05/18 05/05/18 Range/Units 05:22 05:22 MCHC 30.7 L (31.0-37.0) g/dL Carbon Dioxide 31 H (22-30) mmol/L BUN 35 H (7-17) mg/dL Glucose 64 L (74-99) mg/dL POC Glucose (mg/dL) (75-99) mg/dL Hemoglobin A1c (4.0-6.0) % Calcium 8.3 L (8.4-10.2) mg/dL Total Protein 5.7 L (6.3-8.2) g/dL Albumin 2.9 L (3.5-5.0) g/dL Microbiology - Last 24 Hours (Table) 05/02/18 16:40 Blood Culture - Preliminary Blood No Growth after 48 hours 05/02/18 18:01 Gram Stain - Final Leg - Left Wound Culture - Final Assessment and Plan Assessment: #1 left lower extremity cellulitis in the pretibial area, with failed oral antibiotic treatment as outpatient : Continue IV vancomycin. Blood culture remains negative. Infectious disease following #2 underlying history of multiple infections in the past and previous toe amputations due to previous infections #3 underlying history of diabetes mellitus. A1c 7.9. Patient has had episodes of hypoglycemia. Decrease NovoLog 70/30-78 units twice a day down from 80 units twice a day. Add sliding scale coverage #4 underlying history of depression #5 underlying history of morbid obesity #6 underlying history of hyperlipidemia maintained on Lipitor #7 underlying history of peripheral neuropathy maintained on Neurontin #8 severe peripheral vascular disease with prior toe amputations. Peripheral vascular disease possibly contributing to patient's lower extremity cellulitis. Vascular surgery consulted #9 right shoulder pain: Order Motrin decrease dose to 400 mg twice a day as needed GI prophylaxis Pepcid and DVT prophylaxis subcu heparin I performed an examination of the patient and discussed their management with the physician Leadership Development Consultant. I have reviewed the Physician Leadership Development Consultant's notes and agree with the documented findings and plan of care
[2018-05-05 17:06] LABS: Glucose,Whole Blood 84 mg/dL (75-99)
[2018-05-05] MEDS: INSULIN ASPART 100 UNIT/ML 1 ML 10 ML VIAL SQ SCH ×2 (17:08→21:28)
[2018-05-05] MEDS: SODIUM CHLORIDE 0.9% 1,000 ML IV SCH (17:19)
[2018-05-05 20:16] LABS: Glucose,Whole Blood 122 mg/dL (75-99)
[2018-05-05] MEDS ORDERED: IBUPROFEN 400 MG TAB PO SCH (21:00)
[2018-05-05] MEDS: ATORVASTATIN 10 MG TAB PO SCH (21:29)
[2018-05-06 03:25] LABS: Glucose,Whole Blood 77 mg/dL (75-99)
[2018-05-06 03:25] LABS: Glucose,Whole Blood 45 mg/dL (75-99)
[2018-05-06] MEDS: VANCOMYCIN 2,250 MG in SODIUM CHLORIDE 0.9% 500 ML IVPB SCH (05:24)
[2018-05-06 06:55] LABS: Glucose,Whole Blood 97 mg/dL (75-99)
[2018-05-06] MEDS: INSULIN ASPART 100 UNIT/ML 1 ML 10 ML VIAL SQ SCH ×4 (08:31→21:08)
[2018-05-06] MEDS: CLOPIDOGREL 75 MG TAB PO SCH (08:57)
[2018-05-06] MEDS: ESCITALOPRAM 20 MG TAB PO SCH (08:57)
[2018-05-06] MEDS: GABAPENTIN 400 MG CAP PO SCH ×2 (08:57→21:02)
[2018-05-06] MEDS: HYDROCHLOROTHIAZIDE 50 MG TAB PO SCH (08:58)
[2018-05-06] MEDS: MULTIVITAMINS, THERA 1 EACH TAB PO SCH (08:58)
[2018-05-06] MEDS: LISINOPRIL 20 MG TAB PO SCH (08:58)
[2018-05-06] MEDS: ACETAMINOPHEN TAB 325 MG TAB PO PRN ×2 (09:05→21:02)
[2018-05-06] MEDS: INSULIN NPH/REG INSULIN 70/30 300 UNIT/3 ML VIAL SQ SCH ×2 (09:05→21:03)
[2018-05-06 09:08] LABS: Basophils # (A) 0.1 k/uL (0-0.2); Basophils % (A) 1 %; Eosinophils # (A) 0.2 k/uL (0-0.7); Eosinophils % (A) 2 %; HCT 44.9 % (34.0-46.0); Hypochromasia Slight; Lymphocytes # (A) 1.8 k/uL (1.0-4.8); Lymphocytes % (A) 21 %; MCH 29.4 pg (25.0-35.0); MCHC 31.1 g/dL (31.0-37.0); MCV 94.5 fL (80.0-100.0); Mean Platelet Volume 7.3; Monocytes # (A) 0.7 k/uL (0-1.0); Monocytes % (A) 8 %; Neutrophils # (A) 5.5 k/uL (1.3-7.7); Neutrophils % (A) 65 %; Platelet Count 207 k/uL (150-450); RBC 4.76 m/uL (3.80-5.40); RDW 14.3 % (11.5-15.5); WBC 8.5 k/uL (3.8-10.6)
[2018-05-06 11:02] LABS: Glucose,Whole Blood 154 mg/dL (75-99)
[2018-05-06 11:03] LABS: Albumin 3.2 g/dL (3.5-5.0); Calcium 8.3 mg/dL (8.4-10.2); Potassium 5.5 mmol/L (3.5-5.1); Total Bilirubin 0.7 mg/dL (0.2-1.3); Total Protein 6.1 g/dL (6.3-8.2)
[2018-05-06] MEDS: SODIUM CHLORIDE 0.9% 1,000 ML IV SCH (12:12)
[2018-05-06] MEDS ORDERED: SODIUM POLYSTYRENE SULFONATE 15 GM/60 ML BOTTLE PO STA (13:17)
--- NOTE | 2018-05-06 14:29 | P.DS ---
Providers Date of admission: 05/02/18 17:34 Expected date of discharge: 05/06/18 Attending physician: Tiffanie Rangel Consults: 05/03/18 14:30 Consult Physician Routine Consulting Provider: Deni Jarquin Consult Reason/Comments: Lower extremity cellulitis Do you want consulting provider notified?: Yes 05/05/18 12:18 Consult Physician Routine Consulting Provider: Uday Riggins Consult Reason/Comments: peripheral vascular disease Do you want consulting provider notified?: Yes Primary care physician: Socorro Fry Hospital Course: Discharge diagnosis #1 left lower extremity cellulitis in the pretibial area, with failed oral antibiotic treatment as outpatient : Blood culture and wound culture negative. Patient followed by infectious disease. They are recommending Ceftin 500 mg twice a day for 7 days #2 underlying history of multiple infections in the past and previous toe amputations due to previous infections #3 underlying history of diabetes mellitus. A1c 7.9. Patient has had episodes of hypoglycemia. Likely due to the diabetic diet. She does not follow with diet at home. #4 underlying history of depression #5 underlying history of morbid obesity #6 underlying history of hyperlipidemia maintained on Lipitor #7 underlying history of peripheral neuropathy maintained on Neurontin #8 severe peripheral vascular disease with prior toe amputations. Peripheral vascular disease possibly contributing to patient's lower extremity cellulitis. She'll follow vascular surgery outpatient #9 right shoulder pain: Improved and tolerating Tylenol #10 hyperkalemia: Potassium 5.5 likely related to potassium intake from diet. Patient reports eating a lot of potatoes and did have a banana. Kayexalate ordered. Recommend checking BMP to follow up on potassium in 3 days Hospital course Lindsey Galarza is a 72-year-old female patient of Dr. Marybeth fry, who presented to [facility] emergency room due to left lower extremity erythema swelling and tenderness in the pretibial area. Patient stated that she started developing a fluid-filled blister in the left pretibial area she was seen by her primary care physician and by her client support professional Dr. Reyna she was placed on an oral course of antibiotic Keflex however her condition continued to worsen, she was reevaluated by her client support professional and was told to come to emergency room for further evaluation and treatment with IV antibiotic due to failure of oral antibiotic therapy as outpatient. Patient had a prolonged history of bilateral lower extremity infections she has previous amputation of 2 toes on the left foot and one toe on the right foot due to previous infections, she has known history of diabetes mellitus maintained on insulin with good control per patient she states that her last hemoglobin A1c was 7.3 She states that she recently had an arterial and venous Doppler of the lower extremity as outpatient. On 05/04/2018 patient was seen and examined on the fifth floor she is alert and oriented 3 in no apparent distress she is still complaining of swelling erythema and tenderness in the left lower extremity pretibial area there is minimal change since yesterday, otherwise she denies any complaints at this time. 05/05/2018 patient is complaining of right shoulder pain today. She's reports sleeping on it wrong. She was given Motrin with improvement. She denies any injury to the shoulder. She reports that she's just been uncomfortable and this but. Her left leg is still showing significant cellulitis changes. Swelling is improving. Dr. Riggins has been consulted in regards to her history of peripheral vascular disease. She is currently on vancomycin and infectious disease is following. 05/06/2018 patient is medically stable for discharge. She's been cleared by infectious disease. They are recommending Ceftin for 7 more days to complete treatment of the cellulitis. Patient will follow-up with infectious disease in the office. Also recommend that she follows up with Dr. Riggins in the outpatient setting. Patient's symptoms have shown improvement. Blood cultures and wound culture were negative. Patient did have hyperkalemia at time of discharge. Potassium 5.5. This is likely related to her potassium intake in diet. Patient has been educated to avoid any bananas or potatoes or potassium rich foods. She was given Kayexalate prior to discharge. Recommend checking potassium level in 3 days. Also note that she was hypoglycemic this morning. Patient does not usually follow a very strict diabetic diet, like she is in the hospital. We'll continue with her current NovoLog 70/30 at home. Patient is medical's her for discharge please per chart for any further details. I performed an examination of the patient and discussed their management with the physician Plant Science Professor. I have reviewed the Physician Plant Science Professor's notes and agree with the documented findings and plan of care Patient Condition at Discharge: Stable Plan - Discharge Summary Discharge Rx Participant: No New Discharge Prescriptions: New Cefuroxime Axetil [Ceftin] 500 mg PO BID #14 tab Multivitamins, Thera [Multivitamin (formulary)] 1 each PO DAILY@1200 #30 tab Continue Hydrochlorothiazide 50 mg PO DAILY Enalapril [Vasotec] 20 mg PO DAILY metFORMIN HCL 1,000 mg PO BID Gabapentin 800 mg PO BID Lovastatin [Mevacor] 20 mg PO HS Escitalopram [Lexapro] 20 mg PO DAILY Clopidogrel [Plavix] 75 mg PO DAILY Insulin NPH Hum/Reg Insulin Hm [NovoLIN 70-30 100 UNIT/ML VIAL] 80 unit SQ BID Changed Ibuprofen [Motrin Ib] 400 mg PO BID #0 Discontinued Gentamicin 0.1% Cream 1 applic TOPICAL BID Cephalexin [Keflex] 500 mg PO Q6HR Discharge Medication List Clopidogrel [Plavix] 75 mg PO DAILY 05/02/18 [History] Enalapril [Vasotec] 20 mg PO DAILY 05/02/18 [History] Escitalopram [Lexapro] 20 mg PO DAILY 05/02/18 [History] Gabapentin 800 mg PO BID 05/02/18 [History] Hydrochlorothiazide 50 mg PO DAILY 05/02/18 [History] Insulin NPH Hum/Reg Insulin Hm [NovoLIN 70-30 100 UNIT/ML VIAL] 80 unit SQ BID 05/02/18 [History] Lovastatin [Mevacor] 20 mg PO HS 05/02/18 [History] metFORMIN HCL 1,000 mg PO BID 05/02/18 [History] Cefuroxime Axetil [Ceftin] 500 mg PO BID #14 tab 05/06/18 [Rx] Ibuprofen [Motrin Ib] 400 mg PO BID #0 05/06/18 [Rx] Multivitamins, Thera [Multivitamin (formulary)] 1 each PO DAILY@1200 #30 tab 07/13 [Rx] Follow up Appointment(s)/Referral(s): Socorro Fry MD [Primary Care Provider] - 3 Days eDni Jarquin MD [STAFF PHYSICIAN] - 1 Week Uday Riggins MD [STAFF PHYSICIAN] - 1 Week Ambulatory/Diagnostic Orders: Basic Metabolic Panel [LAB.AMB] Time Frame: 3 Days, Location: None Selected Activity/Diet/Wound Care/Special Instructions: Diet: diabetic Activity: as tolerated Discharge Disposition: HOME SELF-CARE
[2018-05-06 17:03] LABS: Glucose,Whole Blood 210 mg/dL (75-99)
--- NOTE | 2018-05-06 17:23 | XR ---
EXAMINATION: XR chest 2V DATE AND TIME: 05/06/2018 4:48 PM CLINICAL INDICATION: hypoxia TECHNIQUE: AP and lateral COMPARISON: None. FINDINGS: The overlying soft tissues are prominent. There is silhouetting of the arborization of the pulmonary vasculature bilaterally, by a fine reticul ar pattern of increased density asymmetrically, consistent with interstitial phase pulmonary edema. The factor of prominent overlying soft tissues makes this pattern appear more prominent. There is no pulmonary airspace filling process. The pleural spaces are negative. The cardiac silhouette appears mild moderately enlarged. The skeletal structures and soft tissues are negative for acute findings. IMPRESSION: Mild interstitial phase pulmonary edema pattern.
[2018-05-06 20:59] LABS: Glucose,Whole Blood 223 mg/dL (75-99)
[2018-05-06] MEDS: ATORVASTATIN 10 MG TAB PO SCH (21:02)
[2018-05-06] MEDS: HEPARIN SODIUM,PORCINE 5,000 UNIT/ML 1 ML VIAL SQ SCH (21:03)
--- NOTE | 2018-05-06 22:30 | P.PN ---
Subjective Progress Note Date: 05/06/18 72-year-old female who suffers from superobesity as well as diabetes mellitus type 2 she relates is quite well controlled. We discussed that the most recent data we have in our hospital system is an A1c of greater than 8 at would not indicate adequate control of her diabetes. She's been having difficulties with the lower extremities with severe peripheral vascular disease and has had prior amputations including 2 toes on the left foot in a single toe from the right foot. She relates that she has known severe peripheral vascular disease and has had multiple interventions in the past including multiple peripheral arterial procedures with arthrectomy's but does not believe that she has stents. She believes most of the work has been done on the right leg but is unclear if it's been done on her left leg in the past. She's been following with her windows security analyst because she's been having difficulties with the lower extremity she was placed on oral antimicrobial therapy and despite this the ulcerations to the left lower extremity worsened she had increasing cellulitis in counseling was directed to the emergency center. She subsequently has been admitted and the infectious diseases consultation was requested regarding the progressive cellulitis and ulceration to the left lower extremity. The vascular surgery consult is ordered been requested to further evaluate her known severe peripheral vascular disease and its impact on the current ulcerations. 05/06/2018 reveals the patient to be feeling somewhat better. She is being treated for cellulitis and ulcerations to the left lower extremity and seems to responding well to current interventions and therapy. Local wound care has been with the Aquacel silver to the ulcerations of the posterior and anterior calf on the left. Is noticed to have some hyperkalemia today and its being treated and then will be discharged to home. Objective - Vital Signs Vital signs: Vital Signs Temp 98.2 F 05/06/18 21:00 Pulse 77 05/06/18 21:00 Resp 18 05/06/18 21:00 BP 142/65 05/06/18 21:00 Pulse Ox 92 L 05/06/18 21:00 Intake & Output 05/06/18 05/06/18 05/07/18 06:59 18:59 06:59 Intake Total 1999 880 400 Balance 1999 880 400 Intake: IV 120 ns@20 120 Intake, IV Titration 800 Amount Sodium Chloride 0.9% 1, 800 000 ml @ 20 mls/hr IV . Q24H NELA Rx#:[id number] Oral 1200 760 400 Other: Voiding Method Toilet Toilet Toilet # Voids 1 2 1 # Bowel Movements 1 - Exam Pleasant 72-year-old female who suffers from superobesity but is comfortable at this time HEENT: Anicteric conjunctiva are pink and moist nasal mucosa grossly intact without significant lesions, there is no thrush. Dentition is poor for age Neck: The neck is supple without significant lymphadenopathy or thyromegaly. Lungs: Good bilateral air entry without significant crackles or wheezing. There is no significant bronchial sounds. There is no egophony or dullness. Heart: Regular rate and rhythm with an audible S1-S2, no S3 no S4. There is no significant murmur click or rub, PMI was nondisplaced. Abdomen: Obese, Positive bowel sounds soft and nontender without palpable masses or organomegaly. There was no guarding or rebound. Extremities: The upper extremities are intact, the IV site is intact without difficulty. No lesions are noted on the upper extremities. The lower extremities evidence of chronic changes with chronic discoloration with hemosiderin staining, evidence of the amputations the 2 toes on the left foot and single toe from the right foot. The amputation sites are well-healed with no evidence of a necrosis or open ulcerations at this time. The lower extremities have evidence of the chronic edema. There are no ulcerations on the right lower extremity. The left lower extremities is evidence of the cluster of ulcerations on the left pretibial area measuring approximately 7 x 6 x 0.2 cm that has evidence of a serous drainage. There is a small left posterior calf ulceration which has only minimal drainage. There is improvement of the ascending erythema from the site. There was no palpable inguinal lymphadenopathy in the left groin. No other abnormal lymph nodes were palpated at this time. Neuro: Awake alert oriented to person place and time. There are no acute new gross focal sensory motor deficits. - Labs CBC & Chem 7: 05/06/18 08:27 05/06/18 10:35 Labs: Abnormal Lab Results - Last 24 Hours (Table) 05/06/18 05/06/18 05/06/18 Range/Units 03:06 10:35 11:00 Potassium 5.5 H (3.5-5.1) mmol/L BUN 34 H (7-17) mg/dL Glucose 172 H (74-99) mg/dL POC Glucose (mg/dL) 45 L 154 H (75-99) mg/dL Calcium 8.3 L (8.4-10.2) mg/dL Total Protein 6.1 L (6.3-8.2) g/dL Albumin 3.2 L (3.5-5.0) g/dL 05/06/18 05/06/18 Range/Units 17:00 20:58 Potassium (3.5-5.1) mmol/L BUN (7-17) mg/dL Glucose (74-99) mg/dL POC Glucose (mg/dL) 210 H 223 H (75-99) mg/dL Calcium (8.4-10.2) mg/dL Total Protein (6.3-8.2) g/dL Albumin (3.5-5.0) g/dL Microbiology - Last 24 Hours (Table) 05/02/18 16:40 Blood Culture - Preliminary Blood No Growth after 96 hours Laboratory Results WBC 8.5 k/uL (3.8-10.6) 05/06/18 08:27 RBC 4.76 m/uL (3.80-5.40) 05/06/18 08:27 Hgb 14.0 gm/dL (11.4-16.0) 05/06/18 08:27 Hct 44.9 % (34.0-46.0) 05/06/18 08:27 MCV 94.5 fL (80.0-100.0) 05/06/18 08:27 MCH 29.4 pg (25.0-35.0) 05/06/18 08:27 MCHC 31.1 g/dL (31.0-37.0) 05/06/18 08:27 RDW 14.3 % (11.5-15.5) 05/06/18 08:27 Plt Count 207 k/uL (150-450) 05/06/18 08:27 Neutrophils % 65 % 05/06/18 08:27 Lymphocytes % 21 % 05/06/18 08:27 Monocytes % 8 % 05/06/18 08:27 Eosinophils % 2 % 05/06/18 08:27 Basophils % 1 % 05/06/18 08:27 Neutrophils # 5.5 k/uL (1.3-7.7) 05/06/18 08:27 Lymphocytes # 1.8 k/uL (1.0-4.8) 05/06/18 08:27 Monocytes # 0.7 k/uL (0-1.0) 05/06/18 08:27 Eosinophils # 0.2 k/uL (0-0.7) 05/06/18 08:27 Basophils # 0.1 k/uL (0-0.2) 05/06/18 08:27 Hypochromasia Slight 05/06/18 08:27 PT 11.1 sec (9.0-12.0) 05/02/18 16:40 INR 1.1 (<1.2) 05/02/18 16:40 APTT 19.8 sec (22.0-30.0) L 05/02/18 16:40 Sodium 138 mmol/L (137-145) 05/06/18 10:35 Potassium 5.5 mmol/L (3.5-5.1) H 05/06/18 10:35 Chloride 105 mmol/L (98-107) 05/06/18 10:35 Carbon Dioxide 30 mmol/L (22-30) 05/06/18 10:35 Anion Gap 3 mmol/L 05/06/18 10:35 BUN 34 mg/dL (7-17) H 05/06/18 10:35 Creatinine 0.85 mg/dL (0.52-1.04) 05/06/18 10:35 Est GFR (CKD-EPI)AfAm 81 (>60 ml/min/1.73 sqM) 05/06/18 10:35 Est GFR (CKD-EPI)NonAf 70 (>60 ml/min/1.73 sqM) 05/06/18 10:35 Glucose 172 mg/dL (74-99) H 05/06/18 10:35 POC Glucose (mg/dL) 223 mg/dL (75-99) H 05/06/18 20:58 POC Glu Vascular Surgeon ID Irais Mackenzie 05/06/18 20:[address] Glu mg/dL 180 05/05/18 05:22 Hemoglobin A1c 7.9 % (4.0-6.0) H 05/05/18 05:22 Calcium 8.3 mg/dL (8.4-10.2) L 05/06/18 10:35 Total Bilirubin 0.7 mg/dL (0.2-1.3) 05/06/18 10:35 AST 28 U/L (14-36) 05/06/18 10:35 ALT 30 U/L (9-52) 05/06/18 10:35 Alkaline Phosphatase 70 U/L (38-126) 05/06/18 10:35 Total Protein 6.1 g/dL (6.3-8.2) L 05/06/18 10:35 Albumin 3.2 g/dL (3.5-5.0) L 05/06/18 10:35 Vancomycin Trough 24.4 ug/mL 05/05/18 05:22 Microbiology 05/02/18 16:40 Blood Blood Culture - Preliminary No Growth after 96 hours 05/02/18 18:01 Leg - Left Gram Stain - Final 05/02/18 18:01 Leg - Left Wound Culture - Final Assessment and Plan (1) Failure of outpatient treatment Narrative/Plan: 72-year-old female presents to Hospital after evaluation in the outpatient setting for the ulcerations to her left lower extremity. Is related she has a known history of diabetes mellitus type 2 somewhat poorly controlled with progression of severe peripheral vascular disease lower extremity with prior toe amputations. It is time she's presenting with failure of oral antimicrobial therapy with progressive cellulitis and ulceration to the left pretibial area. At this time antimicrobial therapy with vancomycin is being utilized given her penicillin and sulfur ALLERGIES. Will initiate local wound care will silver sorb gel that can be applied daily over the ulcer sites and wrapped into place with roll gauze and Adrian. Await the evaluation from the vascular surgeon as to what the next steps shall be. Cultures are process which will further help direct antibiotic therapy. We'll check a hemoglobin A1c to further evaluate her glucose status. 05/06/2018 patient feeling better today. The lower extremity is feeling better with the wrap in place. She has hyperkalemia this is being treated. Once is improved she was transitioned to oral antibiotic therapy with cefuroxime over the next 10 days and she may follow-up with the wound healing Center for ongoing care to the left lower extremity ulcerations. Responding well at this point in time to the opticell silver dressing was reapplied to both ulcerations continue to wrap it with rolled gauze and Adrian wrap. Elevate her legs while she is at rest. Continue a multivitamin. Current Visit: Yes Status: Acute Code(s): Z78.9 - OTHER SPECIFIED HEALTH STATUS SNOMED Code(s): 405402614 (2) Obesity, Class III, BMI 40-49.9 (morbid obesity) Current Visit: Yes Status: Acute Code(s): E66.01 - MORBID (SEVERE) OBESITY DUE TO EXCESS CALORIES SNOMED Code(s): 050583042 (3) Poorly controlled type 2 diabetes mellitus Current Visit: Yes Status: Acute Code(s): E11.65 - TYPE 2 DIABETES MELLITUS WITH HYPERGLYCEMIA SNOMED Code(s): 87839868
[2018-05-07] MEDS: VANCOMYCIN 2,250 MG in SODIUM CHLORIDE 0.9% 500 ML IVPB SCH (05:12)
[2018-05-07 06:52] LABS: Glucose,Whole Blood 100 mg/dL (75-99)
[2018-05-07] MEDS: LISINOPRIL 20 MG TAB PO SCH (08:35)
[2018-05-07] MEDS: HEPARIN SODIUM,PORCINE 5,000 UNIT/ML 1 ML VIAL SQ SCH (08:35)
[2018-05-07] MEDS: CLOPIDOGREL 75 MG TAB PO SCH (08:35)
[2018-05-07 08:36] LABS: Albumin 3.1 g/dL (3.5-5.0); Calcium 8.4 mg/dL (8.4-10.2); Potassium 5.1 mmol/L (3.5-5.1); Total Protein 5.9 g/dL (6.3-8.2)
[2018-05-07] MEDS: HYDROCHLOROTHIAZIDE 50 MG TAB PO SCH (08:36)
[2018-05-07] MEDS: ESCITALOPRAM 20 MG TAB PO SCH (08:36)
[2018-05-07] MEDS: GABAPENTIN 400 MG CAP PO SCH (08:36)
[2018-05-07] MEDS: SODIUM CHLORIDE 0.9% 1,000 ML IV SCH (08:38)
[2018-05-07] MEDS: INSULIN ASPART 100 UNIT/ML 1 ML 10 ML VIAL SQ SCH ×2 (08:41→12:51)
[2018-05-07 08:57] LABS: HCT 46.8 % (34.0-46.0); HGB 14.3 gm/dL (11.4-16.0); Hypochromasia Slight; MCHC 30.5 g/dL (31.0-37.0); MCV 95.2 fL (80.0-100.0); Mean Platelet Volume 7.6; Platelet Count 194 k/uL (150-450); RBC 4.91 m/uL (3.80-5.40); RDW 14.1 % (11.5-15.5)
[2018-05-07 09:00] LABS: Glucose,Whole Blood 215 mg/dL (75-99)
[2018-05-07 09:33] LABS: Anisocytosis (M) Present; Eosinophils # (M) 0.36 k/uL (0-0.7); Lymphocytes # (M) 1.98 k/uL (1.0-4.8); Monocytes # (M) 0.48 k/uL (0-1.0); Neutrophils # (M) 3.18 k/uL (1.3-7.7); Neutrophils % (M) 53 %; Nucleated Red Blood Cells 0 /100 WBC (0-0); Poikilocytosis (M) Present; Total Cells Counted 100
[2018-05-07 10:21] VITALS: BMI 56.5
[2018-05-07] MEDS: INSULIN NPH/REG INSULIN 70/30 300 UNIT/3 ML VIAL SQ SCH (10:28)
[2018-05-07 11:19] LABS: Glucose,Whole Blood 172 mg/dL (75-99)
[2018-05-07] MEDS: MULTIVITAMINS, THERA 1 EACH TAB PO SCH (12:13)
[2018-05-07 12:43] VITALS: BP 146/60; PULSE 71; RESP 16; TEMP 97.1
--- NOTE | 2018-05-07 13:13 | P.DS ---
Providers Date of admission: 05/02/18 17:34 Expected date of discharge: 05/07/18 Attending physician: Tiffanie Rangel Consults: 05/03/18 14:30 Consult Physician Routine Consulting Provider: Deni Jarquin Consult Reason/Comments: Lower extremity cellulitis Do you want consulting provider notified?: Yes 05/05/18 12:18 Consult Physician Routine Consulting Provider: Uday Riggins Consult Reason/Comments: peripheral vascular disease Do you want consulting provider notified?: Yes Primary care physician: Socorro Fry Hospital Course: Discharge Diagnosis #1 left lower extremity cellulitis in the pretibial area, with failed oral antibiotic treatment as outpatient : Blood culture and wound culture negative. Patient followed by infectious disease. They are recommending Ceftin 500 mg twice a day for 7 days #2 underlying history of multiple infections in the past and previous toe amputations due to previous infections #3 underlying history of diabetes mellitus. A1c 7.9. Patient has had episodes of hypoglycemia. Likely due to the diabetic diet. She does not follow with diet at home. #4 underlying history of depression #5 underlying history of morbid obesity #6 underlying history of hyperlipidemia maintained on Lipitor #7 underlying history of peripheral neuropathy maintained on Neurontin #8 severe peripheral vascular disease with prior toe amputations. Peripheral vascular disease possibly contributing to patient's lower extremity cellulitis. She'll follow vascular surgery outpatient #9 right shoulder pain: Improved and tolerating Tylenol #10 hyperkalemia: Potassium 5.5 likely related to potassium intake from diet. Patient reports eating a lot of potatoes and did have a banana. Kayexalate ordered. Recommend checking BMP to follow up on potassium in 3 days. repeat potassium 5.1 #11 low SpO2 level on room air. Patient is now requiring oxygen 2-3 L patient the satting to 83% when ambulating without oxygen. Patient is explained in depth the need for oxygen. Chest x-ray completed yesterday showing mild interstitial phase pulmonary edema pattern. Recommend close follow-up with primary care provider Dr. Fry and further outpatient workup with possible 2- D echo and PFT studies. Hospital course Lindsey Galarza is a 72-year-old female patient of Dr. Marybeth fry, who presented to [facility] emergency room due to left lower extremity erythema swelling and tenderness in the pretibial area. Patient stated that she started developing a fluid-filled blister in the left pretibial area she was seen by her primary care physician and by her liquid flavor compounder Dr. Reyna she was placed on an oral course of antibiotic Keflex however her condition continued to worsen, she was reevaluated by her liquid flavor compounder and was told to come to emergency room for further evaluation and treatment with IV antibiotic due to failure of oral antibiotic therapy as outpatient. Patient had a prolonged history of bilateral lower extremity infections she has previous amputation of 2 toes on the left foot and one toe on the right foot due to previous infections, she has known history of diabetes mellitus maintained on insulin with good control per patient she states that her last hemoglobin A1c was 7.3 She states that she recently had an arterial and venous Doppler of the lower extremity as outpatient. On 05/04/2018 patient was seen and examined on the fifth floor she is alert and oriented 3 in no apparent distress she is still complaining of swelling erythema and tenderness in the left lower extremity pretibial area there is minimal change since yesterday, otherwise she denies any complaints at this time. 05/05/2018 patient is complaining of right shoulder pain today. She's reports sleeping on it wrong. She was given Motrin with improvement. She denies any injury to the shoulder. She reports that she's just been uncomfortable and this but. Her left leg is still showing significant cellulitis changes. Swelling is improving. Dr. Riggins has been consulted in regards to her history of peripheral vascular disease. She is currently on vancomycin and infectious disease is following. 05/06/2018 patient is medically stable for discharge. She's been cleared by infectious disease. They are recommending Ceftin for 7 more days to complete treatment of the cellulitis. Patient will follow-up with infectious disease in the office. Also recommend that she follows up with Dr. Riggins in the outpatient setting. Patient's symptoms have shown improvement. Blood cultures and wound culture were negative. Patient did have hyperkalemia at time of discharge. Potassium 5.5. This is likely related to her potassium intake in diet. Patient has been educated to avoid any bananas or potatoes or potassium rich foods. She was given Kayexalate prior to discharge. Recommend checking potassium level in 3 days. Also note that she was hypoglycemic this morning. Patient does not usually follow a very strict diabetic diet, like she is in the hospital. We'll continue with her current NovoLog 70/30 at home. Patient is medical's her for discharge please per chart for any further details. On 05/07/2018 patient discusses that she is eager to go home. Oxygen test administered per nursing. Patient desating to 83% when ambulating without oxygen. Patient is explained in depth the need for oxygen. Patient Is in agreement. Chest x-ray completed yesterday showing mild interstitial phase pulmonary edema pattern. Recommend close follow-up with primary care provider Dr. Fry and further outpatient workup with possible 2-D echo and PFT studies. Patient states understanding of oxygen use. We'll also write for DuoNeb breathing treatments patient states she does have a nebulizer at home. This time patient denies chest pain or shortness breath. Denies nausea vomiting or diarrhea. Denies any urinary burning or frequency. Patient to follow-up closely with primary care provider for further workup outpatient. I performed an examination of the patient and discussed their management with the Nurse Practitioner. I have reviewed the Nurse Practitioner's notes and agree with the documented findings and plan of care Patient Condition at Discharge: Stable Plan - Discharge Summary Discharge Rx Participant: No New Discharge Prescriptions: New Cefuroxime Axetil [Ceftin] 500 mg PO BID #14 tab Multivitamins, Thera [Multivitamin (formulary)] 1 each PO DAILY@1200 #30 tab Continue Hydrochlorothiazide 50 mg PO DAILY Enalapril [Vasotec] 20 mg PO DAILY metFORMIN HCL 1,000 mg PO BID Gabapentin 800 mg PO BID Lovastatin [Mevacor] 20 mg PO HS Escitalopram [Lexapro] 20 mg PO DAILY Clopidogrel [Plavix] 75 mg PO DAILY Insulin NPH Hum/Reg Insulin Hm [NovoLIN 70-30 100 UNIT/ML VIAL] 80 unit SQ BID Changed Ibuprofen [Motrin Ib] 400 mg PO BID #0 Discontinued Gentamicin 0.1% Cream 1 applic TOPICAL BID Cephalexin [Keflex] 500 mg PO Q6HR Discharge Medication List Clopidogrel [Plavix] 75 mg PO DAILY 05/02/18 [History] Enalapril [Vasotec] 20 mg PO DAILY 05/02/18 [History] Escitalopram [Lexapro] 20 mg PO DAILY 05/02/18 [History] Gabapentin 800 mg PO BID 05/02/18 [History] Hydrochlorothiazide 50 mg PO DAILY 05/02/18 [History] Insulin NPH Hum/Reg Insulin Hm [NovoLIN 70-30 100 UNIT/ML VIAL] 80 unit SQ BID 05/02/18 [History] Lovastatin [Mevacor] 20 mg PO HS 05/02/18 [History] metFORMIN HCL 1,000 mg PO BID 05/02/18 [History] Cefuroxime Axetil [Ceftin] 500 mg PO BID #14 tab 05/06/18 [Rx] Ibuprofen [Motrin Ib] 400 mg PO BID #0 05/06/18 [Rx] Multivitamins, Thera [Multivitamin (formulary)] 1 each PO DAILY@1200 #30 tab 07/13 [Rx] Follow up Appointment(s)/Referral(s): Socorro Fry MD [Primary Care Provider] - 05/09/18 9:30 am ( ) Deni Jarquin MD [STAFF PHYSICIAN] - 1 Week Uday Riggins MD [STAFF PHYSICIAN] - 05/15/18 10:30 am Giorgio Zaman DO [Doctor of Osteopathic Medicine] - 05/14/18 9:15 am Ambulatory/Diagnostic Orders: Basic Metabolic Panel [LAB.AMB] Time Frame: 3 Days, Location: None Selected Activity/Diet/Wound Care/Special Instructions: Diet: diabetic Activity: as tolerated Discharge Disposition: HOME SELF-CARE
== END 2018-05-07 17:00 | disposition home or self-care (01) | DRG 638 ==
LOC: EC 14:57 → 5MS5E 17:34
PROVIDERS: ADMIT Internal Medicine; ATTEND Internal Medicine
DX: E11.622 Type 2 diabetes mellitus with other skin ulcer (principal); Z68.43 Body mass index [BMI] 50.0-59.9, adult; J81.1 Chronic pulmonary edema; L03.116 Cellulitis of left lower limb; L97.929 Non-pressure chronic ulcer of unspecified part of left lower leg with unspecified severity; E11.51 Type 2 diabetes mellitus with diabetic peripheral angiopathy without gangrene; E11.649 Type 2 diabetes mellitus with hypoglycemia without coma; E11.65 Type 2 diabetes mellitus with hyperglycemia; E66.01 Morbid (severe) obesity due to excess calories; E78.5 Hyperlipidemia, unspecified; E87.5 Hyperkalemia; I10 Essential (primary) hypertension; Z79.02 Long term (current) use of antithrombotics/antiplatelets; Z79.4 Long term (current) use of insulin; Z81.8 Family history of other mental and behavioral disorders; Z82.49 Family history of ischemic heart disease and other diseases of the circulatory system; Z87.891 Personal history of nicotine dependence; Z88.0 Allergy status to penicillin; Z89.429 Acquired absence of other toe(s), unspecified side; Z79.899 Other long term (current) drug therapy; Z79.1 Long term (current) use of non-steroidal anti-inflammatories (NSAID)
CPT/HCPCS: 36415; 71046; 80053; 80202; 83036; 85025; 85610; 85730; 87040; 87070; 87205; 99284

== ENCOUNTER 2018-09-05 16:08 | Inpatient (IN) | payer MEDICARE ==
--- NOTE | 2018-09-05 16:49 | ED ---
General Adult HPI <Harvey Keane - Last Filed: 09/05/18 18:55> - General Source: patient, RN notes reviewed Mode of arrival: ambulatory Limitations: no limitations <Vickey Yao - Last Filed: 09/05/18 19:22> - General Chief complaint: Extremity Problem,Nontraumatic Stated complaint: leg swelling/redness Time Seen by Provider: 09/05/18 16:22 - History of Present Illness Initial comments: Patient 73-year-old female presenting to the emergency room today with a chief complaint of cellulitis to left lower extremity. She does admit that she sees a technical support agent who does take care of her chronic ulcer to the bottom left foot and helps treat her sinusitis of the lower extremities. She does admit that the left leg has got worse over the last few days. She was placed on Cipro and prior to that was on Keflex. She did see the technical support agent today was advised to come here to the emergency room to be admitted for IV antibiotics as he did not feel that the infection was getting any better. Patient does admit that she does have small ulcer to aspect of the left anguiano which is been present. She denies any other complaints. Admits numbness down into her feet which is not new. Patient denies any recent fever, chills, shortness of breath, chest pain, back pain, abdominal pain, nausea or vomiting, headaches or visual changes, or any other complaints. (Vickey Yao) - Related Data Home Medications Medication Instructions Recorded Confirmed Clopidogrel [Plavix] 75 mg PO DAILY 05/02/18 09/05/18 Enalapril [Vasotec] 20 mg PO DAILY 05/02/18 09/05/18 Escitalopram [Lexapro] 20 mg PO DAILY 05/02/18 09/05/18 Gabapentin 800 mg PO BID 05/02/18 09/05/18 Hydrochlorothiazide 50 mg PO DAILY 05/02/18 09/05/18 Insulin NPH Hum/Reg Insulin Hm 80 unit SQ AC-BID 05/02/18 09/05/18 [NovoLIN 70-30 100 UNIT/ML VIAL] Lovastatin [Mevacor] 20 mg PO DAILY 05/02/18 09/05/18 metFORMIN HCL 1,000 mg PO BID 05/02/18 09/05/18 Ciprofloxacin HCl [Cipro] 500 mg PO Q12H 09/05/18 09/05/18 Clindamycin HCl 300 mg PO TID 09/05/18 09/05/18 Ibuprofen [Motrin Ib] 400 mg PO BID PRN 09/05/18 09/05/18 Ipratropium-Albuterol Nebulize 3 ml INHALATION RT-BID PRN 09/05/18 09/05/18 [Duoneb 0.5 mg-3 mg/3 ml Soln] Allergies Allergy/AdvReac Type Severity Reaction Status Date / Time adhesive tape Allergy Rash/Hives Verified 09/05/18 16:41 bacitracin Allergy Rash/Hives Verified 09/05/18 16:41 [From Neosporin ([id number])] miconazole Allergy Rash/Hives Verified 09/05/18 16:41 [From Neosporin AF] morphine Allergy Unknown Verified 09/05/18 16:41 neomycin Allergy Rash/Hives Verified 09/05/18 16:41 [From Neosporin ([id number])] Penicillins Allergy Unknown Verified 09/05/18 16:41 polymyxin B Allergy Rash/Hives Verified 09/05/18 16:41 [From Neosporin ([id number])] Sulfa (Sulfonamide Allergy Unknown Verified 09/05/18 16:41 Antibiotics) Review of Systems ROS Other: All systems not noted in ROS Statement are negative. <Harvey Keane - Last Filed: 09/05/18 18:55> ROS Other: All systems not noted in ROS Statement are negative. <Vickey Yao - Last Filed: 09/05/18 19:22> ROS Statement: Those systems with pertinent positive or pertinent negative responses have been documented in the HPI. Past Medical History Past Medical History: Diabetes Mellitus, Hyperlipidemia, Hypertension, Osteoarthritis (OA), Pneumonia Additional Past Medical History / Comment(s): neuropathy to legs/feet, lt eye gets blurry at times,occ heart burn takes tums,wounds lt lower ext History of Any Multi-Drug Resistant Organisms: None Reported Past Surgical History: Tonsillectomy Additional Past Surgical History / Comment(s): CYST REMOVAL ON LEGS, rt 3rd toe amp, left 2nd and 3rd toes amp, benign lumps removed from breasts, melita cataracts , venous doppler studies Past Anesthesia/Blood Transfusion Reactions: No Reported Reaction Additional Past Anesthesia/Blood Transfusion Reaction / Comment(s): rudyphobia Past Psychological History: No Psychological Hx Reported Smoking Status: Former smoker Past Alcohol Use History: Occasional Past Drug Use History: None Reported - Past Family History Father Family Medical History: Myocardial Infarction ([place]) Additional Family Medical History / Comment(s): smoked Mother Family Medical History: CVA/TIA Additional Family Medical History / Comment(s): heart problems, schizophrenia Brother(s) Family Medical History: Cancer Additional Family Medical History / Comment(s): pancareatic cacner <Vickey Yao - Last Filed: 09/05/18 19:22> General Exam <Harvey Keane - Last Filed: 09/05/18 18:55> Limitations: no limitations <Vickey Yao - Last Filed: 09/05/18 19:22> - General Exam Comments Initial Comments: General: The patient is awake and alert, in no distress, and does not appear acutely ill. Neck: The neck is supple, there is no tenderness or JVD. Cardiovascular: There is a regular rate and rhythm. No murmur, rub or gallop is appreciated. Respiratory: Lungs are clear to auscultation, respirations are non-labored, breath sounds are equal. No wheezes, stridor, rales, or rhonchi. Musculoskeletal: Normal ROM, no tenderness. Strength 5/5. Sensation intact. Pedal Pulses equal bilaterally 2+. Neurological: A&O x 3. CN II-XII intact, There are no obvious motor or sensory deficits. Coordination appears grossly intact. Speech is normal. Skin: Patient does have redness to the lower extremities bilaterally below the knee. There is an ulcer to the bottom lateral aspect mid foot measures approximately a centimeter across. No drainage from the area. Superficial ulcer to the anterior aspect of the left anguiano. There is increased swelling to the left lower extremity when compared to the right. Psychiatric: Cooperative, appropriate mood & affect, normal judgment. (Vickey Yao) Course <Harvey Keane - Last Filed: 09/05/18 18:55> <Vickey Yao - Last Filed: 09/05/18 19:22> Vital Signs 09/05/18 16:11 Temperature 98.4 F Pulse Rate 90 Respiratory 18 Rate Blood Pressure 127/65 O2 Sat by Pulse 99 Oximetry - Reevaluation(s) Reevaluation #1: 09/05/18 18:55 PA supervision: I personally do a [id number] evaluation the patient did discuss the findings with her. She was sent in by her but returns for outpatient treatment failure of left foot cellulitis. She does already have an amputation of the left second and third toes up. She does have an ulcer to the lateral plantar aspect of the midfoot. Some minimally elevated localized temperature proximal Jose stasis dermatitis with erythema noted. No crepitation no step-off. I did discuss the findings with Dr. Rangel. Patient will be admitted with consultation to Dr. Jarquin from infectious disease. Lactic acid is elevated part of this is likely secondary to dehydration. (Harvey Keane) EKG Findings - EKG Comments: EKG Findings:: EKG performed at 1724: Shows normal sinus rhythm at 84 bpm. MT interval 186. QRS 84. QT/QTC 382/451. No Acute ST changes. <Vickey Yao - Last Filed: 09/05/18 19:22> Medical Decision Making - Lab Data Result diagrams: 09/05/18 17:16 09/05/18 17:16 <Harvey Keane - Last Filed: 09/05/18 18:55> - Lab Data Result diagrams: 09/05/18 17:16 09/05/18 17:16 <Vickey Yao - Last Filed: 09/05/18 19:22> - Medical Decision Making Patient reexamined shows no signs of distress. Has no fever here in the emergency room. No elevated white count. Lactic acid was 2.7. Patient was given a liter bolus here in emergency room. Chest x-ray is negative for any acute abnormality. Patient's ultrasound negative for any evidence of DVT. Patient started on antibiotics given dose Rocephin and also vancomycin here in the emergency room. Will be admitted to the hospital as she has failed outpatient treatment for cellulitis of the left lower extremity. Patient was previously on Keflex, ciprofloxacin. Patient is aware the plan states understanding and is in agreement. Patient was seen by attending physician Dr. Keane who did discuss with medicine physician Dr. Rangel. Patient has been seen by Dr. Jarquin in the past will be consult. (Vickey Yao) - Lab Data Lab Results 09/05/18 09/05/18 09/05/18 Range/Units 17:16 17:16 17:16 WBC 7.6 (3.8-10.6) k/uL RBC 4.95 (3.80-5.40) m/uL Hgb 14.2 (11.4-16.0) gm/dL Hct 45.6 (34.0-46.0) % MCV 92.1 (80.0-100.0) fL MCH 28.7 (25.0-35.0) pg MCHC 31.1 (31.0-37.0) g/dL RDW 14.1 (11.5-15.5) % Plt Count 222 (150-450) k/uL Neutrophils % 70 % Lymphocytes % 16 % Monocytes % 9 % Eosinophils % 2 % Basophils % 1 % Neutrophils # 5.3 (1.3-7.7) k/uL Lymphocytes # 1.2 (1.0-4.8) k/uL Monocytes # 0.7 (0-1.0) k/uL Eosinophils # 0.1 (0-0.7) k/uL Basophils # 0.0 (0-0.2) k/uL PT 11.1 (9.0-12.0) sec INR 1.0 (<1.2) APTT 24.3 (22.0-30.0) sec Sodium 139 (137-145) mmol/L Potassium 5.1 (3.5-5.1) mmol/L Chloride 104 (98-107) mmol/L Carbon Dioxide 29 (22-30) mmol/L Anion Gap 6 mmol/L BUN 35 H (7-17) mg/dL Creatinine 0.90 (0.52-1.04) mg/dL Est GFR (CKD-EPI)AfAm 75 (>60 ml/min/1.73 sqM) Est GFR (CKD-EPI)NonAf 65 (>60 ml/min/1.73 sqM) Glucose 96 (74-99) mg/dL Plasma Lactic Acid Demian (0.7-2.0) mmol/L Calcium 9.0 (8.4-10.2) mg/dL Total Bilirubin 0.8 (0.2-1.3) mg/dL AST 23 (14-36) U/L ALT 29 (9-52) U/L Alkaline Phosphatase 64 (38-126) U/L Total Creatine Kinase (30-135) U/L CK-MB (CK-2) (0.0-2.4) ng/mL CK-MB (CK-2) Rel Index Troponin I (0.000-0.034) ng/mL NT-Pro-B Natriuret Pep pg/mL Total Protein 6.5 (6.3-8.2) g/dL Albumin 3.4 L (3.5-5.0) g/dL 09/05/18 09/05/18 09/05/18 Range/Units 17:16 17:16 17:16 WBC (3.8-10.6) k/uL RBC (3.80-5.40) m/uL Hgb (11.4-16.0) gm/dL Hct (34.0-46.0) % MCV (80.0-100.0) fL MCH (25.0-35.0) pg MCHC (31.0-37.0) g/dL RDW (11.5-15.5) % Plt Count (150-450) k/uL Neutrophils % % Lymphocytes % % Monocytes % % Eosinophils % % Basophils % % Neutrophils # (1.3-7.7) k/uL Lymphocytes # (1.0-4.8) k/uL Monocytes # (0-1.0) k/uL Eosinophils # (0-0.7) k/uL Basophils # (0-0.2) k/uL PT (9.0-12.0) sec INR (<1.2) APTT (22.0-30.0) sec Sodium (137-145) mmol/L Potassium (3.5-5.1) mmol/L Chloride (98-107) mmol/L Carbon Dioxide (22-30) mmol/L Anion Gap mmol/L BUN (7-17) mg/dL Creatinine (0.52-1.04) mg/dL Est GFR (CKD-EPI)AfAm (>60 ml/min/1.73 sqM) Est GFR (CKD-EPI)NonAf (>60 ml/min/1.73 sqM) Glucose (74-99) mg/dL Plasma Lactic Acid Demian 2.7 H* (0.7-2.0) mmol/L Calcium (8.4-10.2) mg/dL Total Bilirubin (0.2-1.3) mg/dL AST (14-36) U/L ALT (9-52) U/L Alkaline Phosphatase (38-126) U/L Total Creatine Kinase 88 (30-135) U/L CK-MB (CK-2) 3.1 H (0.0-2.4) ng/mL CK-MB (CK-2) Rel Index 3.5 Troponin I <0.012 (0.000-0.034) ng/mL NT-Pro-B Natriuret Pep 515 pg/mL Total Protein (6.3-8.2) g/dL Albumin (3.5-5.0) g/dL Disposition <Harvey Keane - Last Filed: 09/05/18 18:55> Time of Disposition: 19:21 <Vickey Yao - Last Filed: 09/05/18 19:22> Clinical Impression: Cellulitis of left lower leg, Failure of outpatient treatment Disposition: ADMITTED IP TO THIS HOSP Referrals: Socorro Fry MD [Primary Care Provider] - 1-2 days
[2018-09-05 17:35] LABS: Basophils % (A) 1 %; Eosinophils # (A) 0.1 k/uL (0-0.7); Eosinophils % (A) 2 %; HCT 45.6 % (34.0-46.0); HGB 14.2 gm/dL (11.4-16.0); Lymphocytes # (A) 1.2 k/uL (1.0-4.8); Lymphocytes % (A) 16 %; MCH 28.7 pg (25.0-35.0); MCHC 31.1 g/dL (31.0-37.0); MCV 92.1 fL (80.0-100.0); Mean Platelet Volume 7.1; Monocytes # (A) 0.7 k/uL (0-1.0); Monocytes % (A) 9 %; Neutrophils # (A) 5.3 k/uL (1.3-7.7); Neutrophils % (A) 70 %; Platelet Count 222 k/uL (150-450); RBC 4.95 m/uL (3.80-5.40); RDW 14.1 % (11.5-15.5); WBC 7.6 k/uL (3.8-10.6)
[2018-09-05 17:43] LABS: Albumin 3.4 g/dL (3.5-5.0); Partial Thromboplastin Time 24.3 sec (22.0-30.0); Potassium 5.1 mmol/L (3.5-5.1); Prothrombin Time 11.1 sec (9.0-12.0); Total Bilirubin 0.8 mg/dL (0.2-1.3); Total Protein 6.5 g/dL (6.3-8.2)
[2018-09-05 18:00] LABS: Creatine Kinase 88 U/L (30-135)
--- NOTE | 2018-09-05 18:12 | XR ---
EXAMINATION TYPE: XR chest 2V DATE OF EXAM: 09/05/2018 COMPARISON: 05/06/2018 INDICATION: Cough bilateral leg edema TECHNIQUE: Frontal and lateral views of the chest are obtained. FINDINGS: The heart size is mildly prominent. The pulmonary vasculature is normal. The lungs are clear. IMPRESSION: 1. No acute pulmonary process. 2. Mild cardiomegaly.
[2018-09-05 18:13] LABS: Creatine Kinase MB 3.1 ng/mL (0.0-2.4); Troponin I <0.012 ng/mL (0.000-0.034)
[2018-09-05] MEDS ORDERED: VANCOMYCIN IV PER PHARMACY 1 EACH MISC MISCELLANE PRN (18:34)
[2018-09-05] MEDS ORDERED: VANCOMYCIN 2,500 MG in SODIUM CHLORIDE 0.9% 500 ML 500 ML IVPB STA (18:42)
[2018-09-05] MEDS ORDERED: SODIUM CHLORIDE 0.9% 1,000 ML IV STA (18:51)
[2018-09-05] MEDS ORDERED: TEMAZEPAM 15 MG CAP PO PRN (19:23)
[2018-09-05] MEDS ORDERED: SODIUM CHLORIDE 0.9% 1,000 ML IV ONE (19:23)
[2018-09-05] MEDS ORDERED: ONDANSETRON 4 MG/2 ML VIAL IVP PRN (19:23)
[2018-09-05] MEDS ORDERED: NALOXONE 0.4 MG/ML 1 ML VIAL IV PRN (19:23)
[2018-09-05] MEDS ORDERED: ACETAMINOPHEN TAB 325 MG TAB PO PRN (19:23)
--- NOTE | 2018-09-05 20:50 | US ---
EXAMINATION TYPE: US venous doppler duplex LE LT DATE OF EXAM: 09/05/2018 6:38 PM COMPARISON: NONE CLINICAL HISTORY: Pain. Cellulitis left lower leg. Patient on Plavix for 4-5 years SIDE PERFORMED: left TECHNIQUE: The lower extremity deep venous system is examined utilizing real time linear array sonog belkys with graded compression, doppler sonography and color-flow sonography. VESSELS IMAGED: External Iliac Vein (EIV) Common Femoral Vein Deep Femoral Vein Greater Saphenous Vein * Femoral Vein Popliteal Vein Small Saphenous Vein * Proximal Calf Veins (* superficial vessels) Left Leg: No evidence of DVT as visualized. Technical limitations due to patient's body habitus. Fara ble to visualize lower femoral vein for compression. IMPRESSION: 1. Left lower extremity ultrasound negative for deep venous thrombosis.
--- NOTE | 2018-09-05 20:56 | XR ---
EXAMINATION TYPE: XR tibia fibula LT DATE OF EXAM: 09/05/2018 COMPARISON: None HISTORY: Pain, swelling TECHNIQUE: 2 view left tibia and fibula FINDINGS: There is loss of the medial compartment joint space at the knee. There is degenerative adrian ge lateral compartment left knee. Ankle mortise is visualized appears intact. Posterior superior cleaning llar spurring is present. Follow-up studies can be performed 7-10 days from acute trauma for continued pain. IMPRESSION: 1. No acute osseous abnormality 2 view left tibia and fibula
--- NOTE | 2018-09-05 20:57 | XR ---
EXAMINATION TYPE: XR foot limited LT DATE OF EXAM: 09/05/2018 COMPARISON: None HISTORY: Left foot redness and swelling TECHNIQUE: Three-view left foot FINDINGS: There is partial amputation of the distal phalanx great toe. There is a dictation of the se cond and third digits. No acute fractures are evident. There is some tarsometatarsal junction degenerative joint change. Vas cular calcification is present. Calcaneal heel spurs are present. Some mild diffuse soft tissue swell ing is over the dorsum of the foot. IMPRESSION: 1. No suspicious cortical erosions to suggest acute osteomyelitis. 2. Postsurgical changes within the left foot. 3. Mild soft tissue swelling dorsum of the foot
[2018-09-05 20:59] LABS: Glucose,Whole Blood 110 mg/dL (75-99)
[2018-09-05 21:10] LABS: Appearance,Urine Clear (Clear); Bilirubin,Urine Negative (Negative); Blood,Urine Negative (Negative); Color,Urine Yellow; Glucose,Urine (UA) Negative (Negative); Ketones,Urine Negative (Negative); Leukocyte Esterase,Urine Negative (Negative); Nitrite,Urine Negative (Negative); PH, Urine 5.5 (5.0-8.0); Protein,Urine Negative (Negative); Specific Gravity,Urine 1.013 (1.001-1.035); Urobilinogen,Urine <2.0 mg/dL (<2.0)
[2018-09-05] MEDS ORDERED: IPRATROPIUM-ALBUTEROL 3 ML NEB INHALATION PRN (21:24)
[2018-09-05] MEDS ORDERED: IBUPROFEN 400 MG TAB PO PRN (21:24)
[2018-09-05] MEDS ORDERED: diphenhydrAMINE 25 MG CAP PO PRN (21:29)
[2018-09-05] MEDS: GABAPENTIN 400 MG CAP PO SCH (21:53)
[2018-09-05] MEDS: metFORMIN 500 MG TAB PO SCH (21:53)
[2018-09-06 07:24] LABS: Glucose,Whole Blood 136 mg/dL (75-99)
[2018-09-06] MEDS: INSULN ASP PRT/INSULIN ASPART 100 UNIT/ML 10 ML VIAL SQ SCH ×2 (08:05→18:01)
[2018-09-06] MEDS: INSULIN ASPART 100 UNIT/ML 1 ML 10 ML VIAL SQ SCH ×4 (08:06→21:34)
[2018-09-06] MEDS: ATORVASTATIN 10 MG TAB PO SCH (08:06)
[2018-09-06] MEDS: ESCITALOPRAM 20 MG TAB PO SCH (08:07)
[2018-09-06] MEDS: metFORMIN 500 MG TAB PO SCH ×2 (08:07→21:34)
[2018-09-06] MEDS: CLOPIDOGREL 75 MG TAB PO SCH (08:07)
[2018-09-06] MEDS: GABAPENTIN 400 MG CAP PO SCH ×2 (08:07→21:35)
[2018-09-06] MEDS: LISINOPRIL 20 MG TAB PO SCH (08:07)
[2018-09-06] MEDS: HYDROCHLOROTHIAZIDE 50 MG TAB PO SCH (08:08)
[2018-09-06 08:44] LABS: Albumin 3.3 g/dL (3.5-5.0); Calcium 8.8 mg/dL (8.4-10.2); Total Bilirubin 0.8 mg/dL (0.2-1.3); Total Protein 6.3 g/dL (6.3-8.2)
[2018-09-06 08:52] LABS: Basophils # (A) 0.1 k/uL (0-0.2); Basophils % (A) 1 %; Eosinophils # (A) 0.2 k/uL (0-0.7); Eosinophils % (A) 3 %; HCT 46.3 % (34.0-46.0); HGB 13.7 gm/dL (11.4-16.0); Hypochromasia Slight; Lymphocytes # (A) 1.6 k/uL (1.0-4.8); Lymphocytes % (A) 22 %; MCH 27.7 pg (25.0-35.0); MCHC 29.5 g/dL (31.0-37.0); MCV 93.9 fL (80.0-100.0); Mean Platelet Volume 6.7; Monocytes # (A) 0.6 k/uL (0-1.0); Monocytes % (A) 9 %; Neutrophils # (A) 4.4 k/uL (1.3-7.7); Neutrophils % (A) 63 %; Platelet Count 236 k/uL (150-450); RBC 4.92 m/uL (3.80-5.40); WBC 6.9 k/uL (3.8-10.6)
[2018-09-06 12:10] LABS: Glucose,Whole Blood 139 mg/dL (75-99)
--- NOTE | 2018-09-06 12:15 | P.HPIM ---
History of Present Illness H&P Date: 09/06/18 This is a 73-year-old female patient of Dr. Fry. Patient presented to the emergency room with complaints of increased left lower extremity cellulitis that has failed outpatient treatment. Patient has a known past medical history of chronic ulcer to the left bottom foot that she sees Dr. Jarquin and podiatry services. Patient states that over the past 3 days left leg has been increasingly worse with redness and pain. 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 Additional medical history includes diabetes mellitus, hyperlipidemia, hypertension, osteoporosis, pneumonia, neuropathy and obesity. Venous Doppler of left lower extremity completed showing negative for DVT in left lower extremity. Chest x-ray completed showing no acute pulmonary process. Mild cardiomegaly. X-ray of left foot completed showing no suspicious cortical erosions to suggest acute osteomyelitis. Posterior changes within left foot. Mild soft tissue swelling dorsum of the foot. X-ray of the tibia-fibula completed showing no acute osseous abnormality two-view left tibia and fibula. Dr. Jarquin has been consulted for infectious disease. Blood culture has been ordered. Patient currently on vancomycin and Rocephin for IV antibiotics. Physical therapy has continued been consulted. At this time patient denies chest pain or shortness of breath. Patient denies nausea vomiting or diarrhea. Patient denies any urinary burning or frequency or frequency. Review of Systems please refer to HPI otherwise unremarkable Past Medical History Past Medical History: Diabetes Mellitus, Hyperlipidemia, Hypertension, Osteoarthritis (OA), Pneumonia Additional Past Medical History / Comment(s): neuropathy to legs/feet, lt eye gets blurry at times,occ heart burn takes tums, cellulitis lower extremities. History of Any Multi-Drug Resistant Organisms: None Reported Past Surgical History: Tonsillectomy Additional Past Surgical History / Comment(s): CYST REMOVAL ON LEGS, rt 3rd toe amp, left 2nd and 3rd toes amp, benign lumps removed from breasts, melita cataracts , venous doppler studies Past Anesthesia/Blood Transfusion Reactions: No Reported Reaction Additional Past Anesthesia/Blood Transfusion Reaction / Comment(s): clausterphobia Smoking Status: Former smoker - Past Family History Father Family Medical History: Myocardial Infarction ([place]) Additional Family Medical History / Comment(s): smoked Mother Family Medical History: CVA/TIA Additional Family Medical History / Comment(s): heart problems, schizophrenia Brother(s) Family Medical History: Cancer Additional Family Medical History / Comment(s): pancareatic cacner Medications and Allergies Home Medications Medication Instructions Recorded Confirmed Type Clopidogrel [Plavix] 75 mg PO DAILY 05/02/18 09/05/18 History Enalapril [Vasotec] 20 mg PO DAILY 05/02/18 09/05/18 History Escitalopram [Lexapro] 20 mg PO DAILY 05/02/18 09/05/18 History Gabapentin 800 mg PO BID 05/02/18 09/05/18 History Hydrochlorothiazide 50 mg PO DAILY 05/02/18 09/05/18 History Insulin NPH Hum/Reg Insulin Hm 80 unit SQ AC-BID 05/02/18 09/05/18 History [NovoLIN 70-30 100 UNIT/ML VIAL] Lovastatin [Mevacor] 20 mg PO DAILY 05/02/18 09/05/18 History metFORMIN HCL 1,000 mg PO BID 05/02/18 09/05/18 History Ciprofloxacin HCl [Cipro] 500 mg PO Q12H 09/05/18 09/05/18 History Clindamycin HCl 300 mg PO TID 09/05/18 09/05/18 History Ibuprofen [Motrin Ib] 400 mg PO BID PRN 09/05/18 09/05/18 History Ipratropium-Albuterol Nebulize 3 ml INHALATION RT-BID PRN 09/05/18 09/05/18 History [Duoneb 0.5 mg-3 mg/3 ml Soln] Allergies Allergy/AdvReac Type Severity Reaction Status Date / Time adhesive tape Allergy Rash/Hives Verified 09/05/18 16:41 bacitracin Allergy Rash/Hives Verified 09/05/18 16:41 [From Neosporin ([id number])] miconazole Allergy Rash/Hives Verified 09/05/18 16:41 [From Neosporin AF] morphine Allergy Unknown Verified 09/05/18 16:41 neomycin Allergy Rash/Hives Verified 09/05/18 16:41 [From Neosporin ([id number])] Penicillins Allergy Unknown Verified 09/05/18 16:41 polymyxin B Allergy Rash/Hives Verified 09/05/18 16:41 [From Neosporin ([id number])] Sulfa (Sulfonamide Allergy Unknown Verified 09/05/18 16:41 Antibiotics) Physical Exam Vitals: Vital Signs Temp Pulse Pulse Resp BP BP Pulse Ox 09/06/18 07:30 96 09/06/18 06:38 98.2 F 81 20 104/56 90 L 09/05/18 23:00 98.3 F 71 18 138/55 91 L 09/05/18 19:37 97.9 F 88 18 167/67 100 09/05/18 16:11 98.4 F 90 18 127/65 99 Intake and Output 09/05/18 09/06/18 09/06/18 22:59 06:59 14:59 Intake Total 300 100 320 Balance 300 100 320 Intake: Oral 300 100 320 Other: # Voids 2 3 Weight 158.757 kg 162 kg Head normocephalic Neck supple Lungs clear to auscultation bilaterally no wheezing or crackles Heart regular rate and rhythm S1-S2, no rub or gallop Abdomen is soft nontender nondistended positive bowel sounds no hepatosplenomegaly Extremities no edema. Bilateral lower extremity redness. Left greater than right. Kerlix dressing applied Neuro alert and orientated to 3 Results CBC & Chem 7: 09/06/18 07:58 09/06/18 07:58 Labs: Abnormal Lab Results - Last 24 Hours (Table) 09/05/18 09/05/18 09/05/18 Range/Units 17:16 17:16 17:16 Hct (34.0-46.0) % MCHC (31.0-37.0) g/dL Carbon Dioxide (22-30) mmol/L BUN 35 H (7-17) mg/dL Glucose (74-99) mg/dL POC Glucose (mg/dL) (75-99) mg/dL Plasma Lactic Acid Demian 2.7 H* (0.7-2.0) mmol/L CK-MB (CK-2) 3.1 H (0.0-2.4) ng/mL Albumin 3.4 L (3.5-5.0) g/dL 09/05/18 09/06/18 09/06/18 Range/Units 20:54 07:22 07:58 Hct 46.3 H (34.0-46.0) % MCHC 29.5 L (31.0-37.0) g/dL Carbon Dioxide (22-30) mmol/L BUN (7-17) mg/dL Glucose (74-99) mg/dL POC Glucose (mg/dL) 110 H 136 H (75-99) mg/dL Plasma Lactic Acid Demian (0.7-2.0) mmol/L CK-MB (CK-2) (0.0-2.4) ng/mL Albumin (3.5-5.0) g/dL 09/06/18 Range/Units 07:58 Hct (34.0-46.0) % MCHC (31.0-37.0) g/dL Carbon Dioxide 34 H (22-30) mmol/L BUN 28 H (7-17) mg/dL Glucose 139 H (74-99) mg/dL POC Glucose (mg/dL) (75-99) mg/dL Plasma Lactic Acid Demian (0.7-2.0) mmol/L CK-MB (CK-2) (0.0-2.4) ng/mL Albumin 3.3 L (3.5-5.0) g/dL Thrombosis Risk Factor Assmnt - Choose All That Apply Each Factor Represents 1 point: Obesity (BMI >25) Other Risk Factors: Yes Each Risk Factor Represents 2 Points: Age 61-74 years Other congenital or acquired thrombophilia - If yes, enter type in comment: No Thrombosis Risk Factor Assessment Total Risk Factor Score: 3 Thrombosis Risk Factor Assessment Level: Moderate Risk Assessment and Plan Assessment: 1. left leg cellulitis. Foot x-ray completed showing no suspicious cortical erosion to suggest acute diverticulitis. Postsurgical changes within the left foot. Mild soft tissue swelling dorsum of the foot. Tibia-fibula x-ray showing no acute osseous abnormality two-view left tibia and fibula. Patient consulted to infectious disease. Started on Rocephin and vancomycin 2. Underlying history of multiple infections in the past 3. Diabetes mellitus type 2. HemoGlobin A1c will be ordered. Sliding scale insulin ordered along with home medications 4. History of depression. 5. History of morbid obesity. 6. History of hyperlipidemia. 7. History of peripheral neuropathy 8. History of peripheral vascular disease with prior toe amputation. Consult physical therapy A.m. labs ordered currently on vancomycin and Rocephin. Dr. Jarquin per infectious disease consulted. Blood culture ordered DVT prophylaxis Lovenox. GI prophylaxis Protonix Time with Patient: Greater than 30 (Greater than 60% of the total time spent in counseling and coordination of care. I performed an examination of the patient and discussed their management with the Nurse Practitioner. I have reviewed the Nurse Practitioner's notes and agree with the documented findings and plan of care)
--- NOTE | 2018-09-06 16:18 | P.CONS ---
History of Present Illness - Reason for Consult Consult date: 09/06/18 - Chief Complaint Swelling to legs - History of Present Illness 73-year-old woman presents to the emergency center complaining of increasing bilateral lower extremity edema that had been worsening since Ryan time. She relates that she then started to develop some difficulties with some blisters especially the left leg. It worsened and eventually had some drainage. She was seen in the outpatient setting and despite this and despite a course of cephalexin followed by ciprofloxacin her legs continue to worsen. At presentation she noticed increasing erythema especially the left leg with increasing drainage and some increasing tenderness. There is an open ulceration that is giving her discomfort. Also has some scant drainage from the right leg which is where she had great difficulties in the past. In the emergency center duplexes performed without evidence of a deep venous thrombosis and x-ray failed to reveal evidence of any underlying injury or osteomyelitis. With the ongoing refractory cellulitis patient was admitted to hospital for further intervention. 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 Review of Systems 72-year-old woman who is somewhat uncomfortable due to the ulcerations in her left leg. HEENT:Denies headache or acute visual change. Denies sinus or mouth discomforts. Denies neck stiffness or pain. Denies significant oral cavity pain. Denies difficulty on swallowing. Lungs: Denies significant shortness of breath, cough, sputum production, or hemoptysis. Cardiovascular: Denies significant shortness of breath, chest pain, chest wall pain, orthopnea, dyspnea on exertion, syncope Gastrointestinal:Denies nausea, vomiting, diarrhea, constipation, hematemesis, melena, hematochezia. No no significant change of bowel habit noticed. Musculoskeletal: She has chronic lower extremity edema and chronic pain and chronic back pain Skin: Chronic bilateral lower extremity edema now with ulcerations as per the HPI and the left leg. Ulcers to the right leg and healed in the recent past. Neuro: Denies headache or visual change. Denies any new onset weakness or difficulty with ambulation. Denies falls or seizures. Psychiatric:Denies anxiety or depression. Endocrine: Is noticing some fatigue and has had some weight gain Past Medical History Past Medical History: Diabetes Mellitus, Hyperlipidemia, Hypertension, Osteoarthritis (OA), Pneumonia Additional Past Medical History / Comment(s): neuropathy to legs/feet, lt eye gets blurry at times,occ heart burn takes tums, cellulitis lower extremities. History of Any Multi-Drug Resistant Organisms: None Reported Past Surgical History: Tonsillectomy Additional Past Surgical History / Comment(s): CYST REMOVAL ON LEGS, rt 3rd toe amp, left 2nd and 3rd toes amp, benign lumps removed from breasts, melita cataracts , venous doppler studies Past Anesthesia/Blood Transfusion Reactions: No Reported Reaction Additional Past Anesthesia/Blood Transfusion Reaction / Comm: clausterphobia Additional Psychological History / Comment(s): Single. 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 Stopped smoking 30 years ago. No significant history of alcohol or recreational drug use. No experience no international travel. 2 Dogs and 2 pet cats in the home Smoking Status: Former smoker - Past Family History Father Family Medical History: Myocardial Infarction ([place]) Additional Family Medical History / Comment(s): smoked Mother Family Medical History: CVA/TIA Additional Family Medical History / Comment(s): heart problems, schizophrenia Brother(s) Family Medical History: Cancer Additional Family Medical History / Comment(s): pancareatic cacner Medications and Allergies Home Medications and Allergies Comment(s): Current Medications Acetaminophen (Tylenol Tab) 650 mg PO Q6HR PRN PRN Reason: Mild Pain or Fever > 100.5 Albuterol/Ipratropium (Duoneb 0.5 Mg-3 Mg/3 Ml Soln) 3 ml INHALATION RT-BID PRN PRN Reason: Shortness Of Breath Atorvastatin Calcium (Lipitor) 10 mg PO DAILY [facility] Last Admin: 09/06/18 08:06 Dose: 10 mg Clopidogrel Bisulfate (Plavix) 75 mg PO DAILY [facility] Last Admin: 09/06/18 08:07 Dose: 75 mg Diphenhydramine HCl (Benadryl) 25 mg PO Q6H PRN PRN Reason: Itching Last Admin: 09/05/18 21:53 Dose: 25 mg Enoxaparin Sodium (Lovenox) 40 mg SQ DAILY [facility] Escitalopram Oxalate (Lexapro) 20 mg PO DAILY [facility] Last Admin: 09/06/18 08:07 Dose: 20 mg Gabapentin (Neurontin) 800 mg PO BID [facility] Last Admin: 09/06/18 08:07 Dose: 800 mg Hydrochlorothiazide (Hydrodiuril) 50 mg PO DAILY [facility] Last Admin: 09/06/18 08:08 Dose: 50 mg Vancomycin HCl 2,500 mg/ (Sodium Chloride) 500 mls @ 167 mls/hr IVPB Q24H [facility] Ibuprofen (Motrin) 400 mg PO BID PRN PRN Reason: Pain Insulin Aspart (Novolog Mix 70-30 Vial) 80 unit SQ AC-BID [facility] Last Admin: 09/06/18 08:05 Dose: 80 unit Insulin Aspart (Novolog) 0 unit SQ ACHS [facility]; Protocol Last Admin: 09/06/18 12:23 Dose: Not Given Lisinopril (Zestril) 20 mg PO DAILY [facility] Last Admin: 09/06/18 08:07 Dose: 20 mg Metformin HCl (Glucophage) 1,000 mg PO BID [facility] Last Admin: 09/06/18 08:07 Dose: 1,000 mg Naloxone HCl (Narcan) 0.2 mg IV Q2M PRN PRN Reason: Opioid Reversal Ondansetron HCl (Zofran) 4 mg IVP Q8HR PRN PRN Reason: Nausea And Vomiting Pantoprazole Sodium (Protonix) 40 mg PO AC-BRKFST [facility] Temazepam (Restoril) 15 mg PO HS PRN PRN Reason: Insomnia Home Medications Medication Instructions Recorded Confirmed Type Clopidogrel [Plavix] 75 mg PO DAILY 05/02/18 09/05/18 History Enalapril [Vasotec] 20 mg PO DAILY 05/02/18 09/05/18 History Escitalopram [Lexapro] 20 mg PO DAILY 05/02/18 09/05/18 History Gabapentin 800 mg PO BID 05/02/18 09/05/18 History Hydrochlorothiazide 50 mg PO DAILY 05/02/18 09/05/18 History Insulin NPH Hum/Reg Insulin Hm 80 unit SQ AC-BID 05/02/18 09/05/18 History [NovoLIN 70-30 100 UNIT/ML VIAL] Lovastatin [Mevacor] 20 mg PO DAILY 05/02/18 09/05/18 History metFORMIN HCL 1,000 mg PO BID 05/02/18 09/05/18 History Ciprofloxacin HCl [Cipro] 500 mg PO Q12H 09/05/18 09/05/18 History Clindamycin HCl 300 mg PO TID 09/05/18 09/05/18 History Ibuprofen [Motrin Ib] 400 mg PO BID PRN 09/05/18 09/05/18 History Ipratropium-Albuterol Nebulize 3 ml INHALATION RT-BID PRN 09/05/18 09/05/18 History [Duoneb 0.5 mg-3 mg/3 ml Soln] Allergies Allergy/AdvReac Type Severity Reaction Status Date / Time adhesive tape Allergy Rash/Hives Verified 09/05/18 16:41 bacitracin Allergy Rash/Hives Verified 09/05/18 16:41 [From Neosporin ([id number])] miconazole Allergy Rash/Hives Verified 09/05/18 16:41 [From Neosporin AF] morphine Allergy Unknown Verified 09/05/18 16:41 neomycin Allergy Rash/Hives Verified 09/05/18 16:41 [From Neosporin ([id number])] Penicillins Allergy Unknown Verified 09/05/18 16:41 polymyxin B Allergy Rash/Hives Verified 09/05/18 16:41 [From Neosporin ([id number])] Sulfa (Sulfonamide Allergy Unknown Verified 09/05/18 16:41 Antibiotics) Physical Exam Vitals: Vital Signs Temp Pulse Pulse Resp BP BP Pulse Ox 09/06/18 15:09 96 09/06/18 15:00 97.8 F 78 20 89/44 91 L 09/06/18 07:30 96 09/06/18 06:38 98.2 F 81 20 104/56 90 L 09/05/18 23:00 98.3 F 71 18 138/55 91 L 09/05/18 19:37 97.9 F 88 18 167/67 100 09/05/18 16:11 98.4 F 90 18 127/65 99 Intake and Output 09/06/18 09/06/18 09/06/18 06:59 14:59 22:59 Intake Total 100 320 Balance 100 320 Intake: Oral 100 320 Other: # Voids 3 2 Weight 162 kg Pleasant 73-year-old female who suffers from superobesity but is mostly comfortable at this time HEENT: Anicteric conjunctiva are pink and moist nasal mucosa grossly intact without significant lesions, there is no thrush. Dentition is poor for age Neck: The neck is supple without significant lymphadenopathy or thyromegaly. Lungs: Good bilateral air entry without significant crackles or wheezing. There is no significant bronchial sounds. There is no egophony or dullness. Heart: Regular rate and rhythm with an audible S1-S2, no S3 no S4. There is no significant murmur click or rub, PMI was nondisplaced. Abdomen: Obese, Positive bowel sounds soft and nontender without palpable masses or organomegaly. There was no guarding or rebound. Extremities: The upper extremities are intact, the IV site is intact without difficulty. No lesions are noted on the upper extremities. The lower extremities evidence of chronic changes with chronic discoloration with hemosiderin staining, evidence of the amputations the 2 toes on the left foot and single toe from the right foot. The amputation sites are well-healed with no evidence of a necrosis or open ulcerations at this time. The lower extremities have evidence of the chronic edema. There is mild ascending erythema from the site. There was no palpable inguinal lymphadenopathy in the left groin. No other abnormal lymph nodes were palpated at this time.The left leg reveals evidence of edema that is greater than the right. There is evidence of the open ulceration to the left lateral pretibial area measuring 5 x 5 x 0.2 cm with some bloody drainage. There is dense surrounding erythema that ascends the limb does not go above the knee. Neuro: Awake alert oriented to person place and time. There are no acute new gross focal sensory motor deficits. Results CBC & Chem 7: 09/06/18 07:58 09/06/18 07:58 Labs: Abnormal Lab Results - Last 24 Hours (Table) 09/05/18 09/05/18 09/05/18 Range/Units 17:16 17:16 17:16 Hct (34.0-46.0) % MCHC (31.0-37.0) g/dL Carbon Dioxide (22-30) mmol/L BUN 35 H (7-17) mg/dL Glucose (74-99) mg/dL POC Glucose (mg/dL) (75-99) mg/dL Plasma Lactic Acid Demian 2.7 H* (0.7-2.0) mmol/L CK-MB (CK-2) 3.1 H (0.0-2.4) ng/mL Albumin 3.4 L (3.5-5.0) g/dL 09/05/18 09/06/18 09/06/18 Range/Units 20:54 07:22 07:58 Hct 46.3 H (34.0-46.0) % MCHC 29.5 L (31.0-37.0) g/dL Carbon Dioxide (22-30) mmol/L BUN (7-17) mg/dL Glucose (74-99) mg/dL POC Glucose (mg/dL) 110 H 136 H (75-99) mg/dL Plasma Lactic Acid Demian (0.7-2.0) mmol/L CK-MB (CK-2) (0.0-2.4) ng/mL Albumin (3.5-5.0) g/dL 09/06/18 09/06/18 Range/Units 07:58 12:06 Hct (34.0-46.0) % MCHC (31.0-37.0) g/dL Carbon Dioxide 34 H (22-30) mmol/L BUN 28 H (7-17) mg/dL Glucose 139 H (74-99) mg/dL POC Glucose (mg/dL) 139 H (75-99) mg/dL Plasma Lactic Acid Demian (0.7-2.0) mmol/L CK-MB (CK-2) (0.0-2.4) ng/mL Albumin 3.3 L (3.5-5.0) g/dL Laboratory Results WBC 6.9 k/uL (3.8-10.6) 09/06/18 07:58 RBC 4.92 m/uL (3.80-5.40) 09/06/18 07:58 Hgb 13.7 gm/dL (11.4-16.0) 09/06/18 07:58 Hct 46.3 % (34.0-46.0) H 09/06/18 07:58 MCV 93.9 fL (80.0-100.0) 09/06/18 07:58 MCH 27.7 pg (25.0-35.0) 09/06/18 07:58 MCHC 29.5 g/dL (31.0-37.0) L 09/06/18 07:58 RDW 14.0 % (11.5-15.5) 09/06/18 07:58 Plt Count 236 k/uL (150-450) 09/06/18 07:58 Neutrophils % 63 % 09/06/18 07:58 Lymphocytes % 22 % 09/06/18 07:58 Monocytes % 9 % 09/06/18 07:58 Eosinophils % 3 % 09/06/18 07:58 Basophils % 1 % 09/06/18 07:58 Neutrophils # 4.4 k/uL (1.3-7.7) 09/06/18 07:58 Lymphocytes # 1.6 k/uL (1.0-4.8) 09/06/18 07:58 Monocytes # 0.6 k/uL (0-1.0) 09/06/18 07:58 Eosinophils # 0.2 k/uL (0-0.7) 09/06/18 07:58 Basophils # 0.1 k/uL (0-0.2) 09/06/18 07:58 Hypochromasia Slight 09/06/18 07:58 PT 11.1 sec (9.0-12.0) 09/05/18 17:16 INR 1.0 (<1.2) 09/05/18 17:16 APTT 24.3 sec (22.0-30.0) 09/05/18 17:16 Sodium 139 mmol/L (137-145) 09/06/18 07:58 Potassium 5.0 mmol/L (3.5-5.1) 09/06/18 07:58 Chloride 104 mmol/L (98-107) 09/06/18 07:58 Carbon Dioxide 34 mmol/L (22-30) H 09/06/18 07:58 Anion Gap 1 mmol/L 09/06/18 07:58 BUN 28 mg/dL (7-17) H 09/06/18 07:58 Creatinine 0.84 mg/dL (0.52-1.04) 09/06/18 07:58 Est GFR (CKD-EPI)AfAm 81 (>60 ml/min/1.73 sqM) 09/06/18 07:58 Est GFR (CKD-EPI)NonAf 70 (>60 ml/min/1.73 sqM) 09/06/18 07:58 Glucose 139 mg/dL (74-99) H 09/06/18 07:58 POC Glucose (mg/dL) 139 mg/dL (75-99) H 09/06/18 12:06 POC Glu Electrical System Specialist ID [place] Escobar 09/06/18 12:06 Lactic Ac Sepsis Rflx Y 09/05/18 17:45 Plasma Lactic Acid Demian 1.2 mmol/L (0.7-2.0) 09/05/18 21:14 Calcium 8.8 mg/dL (8.4-10.2) 09/06/18 07:58 Total Bilirubin 0.8 mg/dL (0.2-1.3) 09/06/18 07:58 AST 24 U/L (14-36) 09/06/18 07:58 ALT 24 U/L (9-52) 09/06/18 07:58 Alkaline Phosphatase 66 U/L (38-126) 09/06/18 07:58 Total Creatine Kinase 88 U/L (30-135) 09/05/18 17:16 CK-MB (CK-2) 3.1 ng/mL (0.0-2.4) H 09/05/18 17:16 CK-MB (CK-2) Rel Index 3.5 09/05/18 17:16 Troponin I <0.012 ng/mL (0.000-0.034) 09/05/18 17:16 NT-Pro-B Natriuret Pep 515 pg/mL 09/05/18 17:16 Total Protein 6.3 g/dL (6.3-8.2) 09/06/18 07:58 Albumin 3.3 g/dL (3.5-5.0) L 09/06/18 07:58 Urine Color Yellow 09/05/18 21:00 Urine Appearance Clear (Clear) 09/05/18 21:00 Urine pH 5.5 (5.0-8.0) 09/05/18 21:00 Ur Specific [place] 1.013 (1.001-1.035) 09/05/18 21:00 Urine Protein Negative (Negative) 09/05/18 21:00 Urine Glucose (UA) Negative (Negative) 09/05/18 21:00 Urine Ketones Negative (Negative) 09/05/18 21:00 Urine Blood Negative (Negative) 09/05/18 21:00 Urine Nitrite Negative (Negative) 09/05/18 21:00 Urine Bilirubin Negative (Negative) 09/05/18 21:00 Urine Urobilinogen <2.0 mg/dL (<2.0) 09/05/18 21:00 Ur Leukocyte Esterase Negative (Negative) 09/05/18 21:00 Comments: Duplex without evidence of deep venous thrombosis Assessment and Plan (1) Cellulitis of left lower leg Narrative/Plan: 73-year-old woman presents to the emergency center with a several week history of increasing swelling erythema to the left lower extremity that is resulted in a blister is now open and is draining. The leg is worsened with increasing redness and tenderness in counseling sought care. At this time appears to have a cellulitis of left lower extremity in antibiotic therapy with vancomycin has been initiated. This will continue. Local wound care with therahoney has been ordered and wraps to be applied. Elevate her legs while she is at rest. Will expect with antibiotic therapy, local care elevation in his glucose control we see some improvement in the lower extremities are rapidly. Hemoglobin A1c is pending, will add a multivitamin and putting supplement if indicated. Current Visit: Yes Status: Acute Code(s): L03.116 - CELLULITIS OF LEFT LOWER LIMB SNOMED Code(s): 457542401 (2) Failure of outpatient treatment Current Visit: Yes Status: Acute Code(s): Z78.9 - OTHER SPECIFIED HEALTH STATUS SNOMED Code(s): 164995335 (3) Poorly controlled type 2 diabetes mellitus Current Visit: No Status: Acute Code(s): E11.65 - TYPE 2 DIABETES MELLITUS WITH HYPERGLYCEMIA SNOMED Code(s): 00452830 (4) Obesity, Class III, BMI 40-49.9 (morbid obesity) Current Visit: No Status: Acute Code(s): E66.01 - MORBID (SEVERE) OBESITY DUE TO EXCESS CALORIES SNOMED Code(s): 327221632
[2018-09-06 17:15] LABS: Glucose,Whole Blood 155 mg/dL (75-99)
[2018-09-06] MEDS: VANCOMYCIN 2,500 MG in SODIUM CHLORIDE 0.9% 500 ML 500 ML IVPB SCH (18:01)
[2018-09-06 18:52] LABS: Hemoglobin A1C 6.9 % (4.0-6.0)
[2018-09-06 20:39] LABS: Glucose,Whole Blood 148 mg/dL (75-99)
[2018-09-07 07:39] LABS: Glucose,Whole Blood 97 mg/dL (75-99)
[2018-09-07] MEDS: INSULIN ASPART 100 UNIT/ML 1 ML 10 ML VIAL SQ SCH ×4 (07:45→21:22)
[2018-09-07] MEDS: GABAPENTIN 400 MG CAP PO SCH ×2 (08:01→21:21)
[2018-09-07] MEDS: ESCITALOPRAM 20 MG TAB PO SCH (08:01)
[2018-09-07] MEDS: HYDROCHLOROTHIAZIDE 50 MG TAB PO SCH (08:01)
[2018-09-07] MEDS: CLOPIDOGREL 75 MG TAB PO SCH (08:01)
[2018-09-07] MEDS: ATORVASTATIN 10 MG TAB PO SCH (08:01)
[2018-09-07] MEDS: ENOXAPARIN 40 MG/0.4 ML SYRINGE SQ SCH (08:01)
[2018-09-07] MEDS: PANTOPRAZOLE 40 MG TABLET PO SCH (08:01)
[2018-09-07] MEDS: metFORMIN 500 MG TAB PO SCH ×2 (08:02→21:23)
[2018-09-07] MEDS: LISINOPRIL 20 MG TAB PO SCH (08:02)
[2018-09-07 08:27] LABS: Basophils # (A) 0.1 k/uL (0-0.2); Basophils % (A) 1 %; Eosinophils # (A) 0.2 k/uL (0-0.7); Eosinophils % (A) 3 %; HCT 47.3 % (34.0-46.0); HGB 14.9 gm/dL (11.4-16.0); Hypochromasia Slight; Lymphocytes # (A) 1.6 k/uL (1.0-4.8); Lymphocytes % (A) 21 %; MCH 29.3 pg (25.0-35.0); MCHC 31.4 g/dL (31.0-37.0); MCV 93.1 fL (80.0-100.0); Mean Platelet Volume 7.3; Monocytes # (A) 0.7 k/uL (0-1.0); Monocytes % (A) 10 %; Neutrophils # (A) 4.9 k/uL (1.3-7.7); Neutrophils % (A) 64 %; Platelet Count 220 k/uL (150-450); RBC 5.09 m/uL (3.80-5.40); RDW 13.9 % (11.5-15.5); WBC 7.6 k/uL (3.8-10.6)
[2018-09-07 08:42] LABS: Albumin 3.5 g/dL (3.5-5.0); Potassium 5.4 mmol/L (3.5-5.1); Total Bilirubin 0.9 mg/dL (0.2-1.3); Total Protein 6.7 g/dL (6.3-8.2)
[2018-09-07] MEDS: INSULN ASP PRT/INSULIN ASPART 100 UNIT/ML 10 ML VIAL SQ SCH ×2 (08:46→17:39)
[2018-09-07 11:29] LABS: Glucose,Whole Blood 121 mg/dL (75-99)
[2018-09-07] MEDS ORDERED: SODIUM POLYSTYRENE SULFONATE 15 GM/60 ML BOTTLE PO STA ×2 (12:21→17:31)
--- NOTE | 2018-09-07 12:23 | P.PN ---
Subjective Progress Note Date: 09/07/18 This is a 73-year-old female patient of Dr. Fry. Patient presented to the emergency room with complaints of increased left lower extremity cellulitis that has failed outpatient treatment. Patient has a known past medical history of chronic ulcer to the left bottom foot that she sees Dr. Jarquin and podiatry services. Patient states that over the past 3 days left leg has been increasingly worse with redness and pain. Patient was treated with Cipro and Keflex outpatient was recommended by her computer engineering professor to come to emergency room for IV antibiotics. Additional medical history includes diabetes mellitus, hyperlipidemia, hypertension, osteoporosis, pneumonia, neuropathy and obesity. Venous Doppler of left lower extremity completed showing negative for DVT in left lower extremity. Chest x-ray completed showing no acute pulmonary process. Mild cardiomegaly. X-ray of left foot completed showing no suspicious cortical erosions to suggest acute osteomyelitis. Posterior changes within left foot. Mild soft tissue swelling dorsum of the foot. X-ray of the tibia-fibula completed showing no acute osseous abnormality two-view left tibia and fibula. Dr. Jarquin has been consulted for infectious disease. Blood culture has been ordered. Patient currently on vancomycin and Rocephin for IV antibiotics. Physical therapy has continued been consulted. At this time patient denies chest pain or shortness of breath. Patient denies nausea vomiting or diarrhea. Patient denies any urinary burning or frequency or frequency. On 09/07/2018 patient currently resting in bed. Infectious disease is following. Awaiting blood culture results. Patient maintained on IV antibiotics. At this time patient denies chest pain or shortness breath. Patient denies nausea vomiting or diarrhea. Patient denies any urinary burning or frequency Objective - Vital Signs Vital signs: Vital Signs Temp 97.6 F 09/07/18 07:00 Pulse 81 09/07/18 07:00 Resp 18 09/07/18 07:00 BP 110/67 09/07/18 07:00 Pulse Ox 96 09/07/18 07:00 Intake & Output 09/06/18 09/07/18 09/07/18 18:59 06:59 18:59 Intake Total 320 950 240 Balance 320 950 240 Intake: Oral 320 950 240 Other: # Voids 2 3 - Exam Head normocephalic Neck supple Lungs clear to auscultation bilaterally no wheezing or crackles Heart regular rate and rhythm S1-S2, no rub or gallop Abdomen is soft nontender nondistended positive bowel sounds no hepatosplenomegaly Extremities no edema. Bilateral lower extremity redness. Left greater than right. Kerlix dressing applied Neuro alert and orientated to 3 - Labs CBC & Chem 7: 09/07/18 08:02 09/07/18 08:02 Labs: Abnormal Lab Results - Last 24 Hours (Table) 09/06/18 09/06/18 09/06/18 Range/Units 07:58 16:57 20:32 Hct (34.0-46.0) % Potassium (3.5-5.1) mmol/L Carbon Dioxide (22-30) mmol/L BUN (7-17) mg/dL Glucose (74-99) mg/dL POC Glucose (mg/dL) 155 H 148 H (75-99) mg/dL Hemoglobin A1c 6.9 H (4.0-6.0) % 09/07/18 09/07/18 09/07/18 Range/Units 08:02 08:02 11:28 Hct 47.3 H (34.0-46.0) % Potassium 5.4 H (3.5-5.1) mmol/L Carbon Dioxide 34 H (22-30) mmol/L BUN 25 H (7-17) mg/dL Glucose 130 H (74-99) mg/dL POC Glucose (mg/dL) 121 H (75-99) mg/dL Hemoglobin A1c (4.0-6.0) % Microbiology - Last 24 Hours (Table) 09/05/18 17:16 Blood Culture - Preliminary Blood No Growth after 24 hours Assessment and Plan Assessment: 1. left leg cellulitis. Foot x-ray completed showing no suspicious cortical erosion to suggest acute diverticulitis. Postsurgical changes within the left foot. Mild soft tissue swelling dorsum of the foot. Tibia-fibula x-ray showing no acute osseous abnormality two-view left tibia and fibula. Patient consulted to infectious disease. Started on Rocephin and vancomycin. Per infectious disease continue vancomycin for antibiotic. Continue local wound care with Theraputty and wraps. 2. Underlying history of multiple infections in the past 3. Diabetes mellitus type 2. HemoGlobin A1c will be ordered. Sliding scale insulin ordered along with home medications 4. History of depression. 5. History of morbid obesity. 6. History of hyperlipidemia. 7. History of peripheral neuropathy 8. History of peripheral vascular disease with prior toe amputation. 9. Hyperkalemia. Potassium 5.4. Will order dose of Kayexalate and recheck at 4 PM DVT prophylaxis Lovenox. GI prophylaxis Protonix I performed an examination of the patient and discussed their management with the Nurse Practitioner. I have reviewed the Nurse Practitioner's notes and agree with the documented findings and plan of care
[2018-09-07] MEDS: MULTIVITAMINS, THERA 1 EACH TAB PO SCH (12:59)
[2018-09-07] MEDS: VANCOMYCIN 2,500 MG in SODIUM CHLORIDE 0.9% 500 ML 500 ML IVPB SCH (17:18)
[2018-09-07 17:26] LABS: Glucose,Whole Blood 132 mg/dL (75-99)
[2018-09-07] MEDS: SODIUM CHLORIDE 0.9% 1,000 ML IV SCH (17:40)
[2018-09-07 20:45] LABS: Glucose,Whole Blood 116 mg/dL (75-99)
[2018-09-08 07:22] LABS: Glucose,Whole Blood 86 mg/dL (75-99)
[2018-09-08 07:49] LABS: Basophils # (A) 0.1 k/uL (0-0.2); Basophils % (A) 1 %; Eosinophils # (A) 0.2 k/uL (0-0.7); Eosinophils % (A) 3 %; HGB 13.6 gm/dL (11.4-16.0); Hypochromasia Slight; Lymphocytes # (A) 1.8 k/uL (1.0-4.8); Lymphocytes % (A) 26 %; MCH 29.7 pg (25.0-35.0); MCHC 31.5 g/dL (31.0-37.0); MCV 94.1 fL (80.0-100.0); Mean Platelet Volume 7.3; Monocytes # (A) 0.6 k/uL (0-1.0); Monocytes % (A) 9 %; Neutrophils # (A) 4.1 k/uL (1.3-7.7); Neutrophils % (A) 59 %; Platelet Count 224 k/uL (150-450); RBC 4.57 m/uL (3.80-5.40); RDW 13.9 % (11.5-15.5)
[2018-09-08 08:01] LABS: Albumin 3.2 g/dL (3.5-5.0); Calcium 8.6 mg/dL (8.4-10.2); Potassium 5.1 mmol/L (3.5-5.1); Total Bilirubin 0.7 mg/dL (0.2-1.3); Total Protein 6.1 g/dL (6.3-8.2)
[2018-09-08] MEDS: MULTIVITAMINS, THERA 1 EACH TAB PO SCH (08:42)
[2018-09-08] MEDS: PANTOPRAZOLE 40 MG TABLET PO SCH (08:42)
[2018-09-08] MEDS: LISINOPRIL 20 MG TAB PO SCH (08:42)
[2018-09-08] MEDS: ATORVASTATIN 10 MG TAB PO SCH (08:42)
[2018-09-08] MEDS: metFORMIN 500 MG TAB PO SCH ×2 (08:42→22:47)
[2018-09-08] MEDS: CLOPIDOGREL 75 MG TAB PO SCH (08:42)
[2018-09-08] MEDS: GABAPENTIN 400 MG CAP PO SCH ×2 (08:42→22:47)
[2018-09-08] MEDS: ENOXAPARIN 40 MG/0.4 ML SYRINGE SQ SCH (08:43)
[2018-09-08] MEDS: INSULN ASP PRT/INSULIN ASPART 100 UNIT/ML 10 ML VIAL SQ SCH ×2 (08:43→17:39)
[2018-09-08] MEDS: INSULIN ASPART 100 UNIT/ML 1 ML 10 ML VIAL SQ SCH ×4 (08:43→21:35)
[2018-09-08] MEDS: ESCITALOPRAM 20 MG TAB PO SCH (08:43)
[2018-09-08] MEDS: HYDROCHLOROTHIAZIDE 50 MG TAB PO SCH (08:44)
--- NOTE | 2018-09-08 11:28 | P.PN ---
Subjective Progress Note Date: 09/08/18 This is a 73-year-old female patient of Dr. Fry. Patient presented to the emergency room with complaints of increased left lower extremity cellulitis that has failed outpatient treatment. Patient has a known past medical history of chronic ulcer to the left bottom foot that she sees Dr. Jarquin and podiatry services. Patient states that over the past 3 days left leg has been increasingly worse with redness and pain. Patient was treated with Cipro and Keflex outpatient was recommended by her tube repairer to come to emergency room for IV antibiotics. Additional medical history includes diabetes mellitus, hyperlipidemia, hypertension, osteoporosis, pneumonia, neuropathy and obesity. Venous Doppler of left lower extremity completed showing negative for DVT in left lower extremity. Chest x-ray completed showing no acute pulmonary process. Mild cardiomegaly. X-ray of left foot completed showing no suspicious cortical erosions to suggest acute osteomyelitis. Posterior changes within left foot. Mild soft tissue swelling dorsum of the foot. X-ray of the tibia-fibula completed showing no acute osseous abnormality two-view left tibia and fibula. Dr. Jarquin has been consulted for infectious disease. Blood culture has been ordered. Patient currently on vancomycin and Rocephin for IV antibiotics. Physical therapy has continued been consulted. At this time patient denies chest pain or shortness of breath. Patient denies nausea vomiting or diarrhea. Patient denies any urinary burning or frequency or frequency. On 09/07/2018 patient currently resting in bed. Infectious disease is following. Awaiting blood culture results. Patient maintained on IV antibiotics. At this time patient denies chest pain or shortness breath. Patient denies nausea vomiting or diarrhea. Patient denies any urinary burning or frequency On 09/08/2018 patient currently resting comfortably in bed. Left leg dressing has some serous sinuous drainage noted to bottom and anguiano. Patient maintained on IV antibiotics. Culture currently pending. At this time patient denies chest pain or shortness breath. Patient denies nausea vomiting or diarrhea. Patient potassium has improved to 5.1 Objective - Vital Signs Vital signs: Vital Signs Temp 97.8 F 09/08/18 07:00 Pulse 78 09/08/18 07:00 Resp 20 09/08/18 07:00 BP 126/89 09/08/18 07:00 Pulse Ox 96 09/08/18 07:00 Intake & Output 01/09/08/18 09/08/18 18:59 06:59 18:59 Intake Total 240 Balance 240 Intake: Oral 240 Other: # Voids 2 2 # Bowel Movements 0 - Exam Head normocephalic Neck supple Lungs clear to auscultation bilaterally no wheezing or crackles Heart regular rate and rhythm S1-S2, no rub or gallop Abdomen is soft nontender nondistended positive bowel sounds no hepatosplenomegaly Extremities no edema. Bilateral lower extremity redness. Left greater than right. Kerlix dressing applied. Serosanguineous drainage noted to bottom left foot anguiano Neuro alert and orientated to 3 - Labs CBC & Chem 7: 09/08/18 06:56 09/08/18 06:56 Labs: Abnormal Lab Results - Last 24 Hours (Table) 09/07/18 09/07/18 09/07/18 Range/Units 11:28 16:05 17:21 Potassium 6.0 H (3.5-5.1) mmol/L Carbon Dioxide (22-30) mmol/L BUN (7-17) mg/dL POC Glucose (mg/dL) 121 H 132 H (75-99) mg/dL Total Protein (6.3-8.2) g/dL Albumin (3.5-5.0) g/dL 09/07/18 09/08/18 Range/Units 20:44 06:56 Potassium (3.5-5.1) mmol/L Carbon Dioxide 33 H (22-30) mmol/L BUN 24 H (7-17) mg/dL POC Glucose (mg/dL) 116 H (75-99) mg/dL Total Protein 6.1 L (6.3-8.2) g/dL Albumin 3.2 L (3.5-5.0) g/dL Microbiology - Last 24 Hours (Table) 09/05/18 17:16 Blood Culture - Preliminary Blood No Growth after 48 hours Assessment and Plan Assessment: 1. left leg cellulitis. Foot x-ray completed showing no suspicious cortical erosion to suggest acute diverticulitis. Postsurgical changes within the left foot. Mild soft tissue swelling dorsum of the foot. Tibia-fibula x-ray showing no acute osseous abnormality two-view left tibia and fibula. Patient consulted to infectious disease. Started on Rocephin and vancomycin. Per infectious disease continue vancomycin for antibiotic. Continue local wound care with Therahoney and wraps. Blood culture currently showing no growth 2. Underlying history of multiple infections in the past 3. Diabetes mellitus type 2. HemoGlobin A1c 6.9. Sliding scale insulin ordered along with home medications 4. History of depression. 5. History of morbid obesity. 6. History of hyperlipidemia. 7. History of peripheral neuropathy 8. History of peripheral vascular disease with prior toe amputation. 9. Hyperkalemia. Potassium 5.4. Will order dose of Kayexalate and recheck at 4 PM. Patient's potassium today 5.1 we'll continue monitor closely DVT prophylaxis Lovenox. GI prophylaxis Protonix I performed an examination of the patient and discussed their management with the Nurse Practitioner. I have reviewed the Nurse Practitioner's notes and agree with the documented findings and plan of care
[2018-09-08 12:39] LABS: Glucose,Whole Blood 70 mg/dL (75-99)
[2018-09-08] MEDS: SODIUM CHLORIDE 0.9% 1,000 ML IV SCH (16:44)
[2018-09-08 17:31] LABS: Glucose,Whole Blood 134 mg/dL (75-99)
[2018-09-08] MEDS: VANCOMYCIN 2,500 MG in SODIUM CHLORIDE 0.9% 500 ML 500 ML IVPB SCH (17:40)
[2018-09-08 21:03] LABS: Glucose,Whole Blood 103 mg/dL (75-99)
--- NOTE | 2018-09-09 00:16 | P.PN ---
Subjective Progress Note Date: 09/08/18 73-year-old woman presents to the emergency center complaining of increasing bilateral lower extremity edema that had been worsening since [place] time. She relates that she then started to develop some difficulties with some blisters especially the left leg. It worsened and eventually had some drainage. She was seen in the outpatient setting and despite this and despite a course of cephalexin followed by ciprofloxacin her legs continue to worsen. At presentation she noticed increasing erythema especially the left leg with increasing drainage and some increasing tenderness. There is an open ulceration that is giving her discomfort. Also has some scant drainage from the right leg which is where she had great difficulties in the past. In the emergency center duplexes performed without evidence of a deep venous thrombosis and x-ray failed to reveal evidence of any underlying injury or osteomyelitis. With the ongoing refractory cellulitis patient was admitted to hospital for further intervention. She is mildly uncomfortable with the legs and relates that she has difficulty with dyspnea with exertion which is not new , Chairman & Chief Executive Officer's denying nausea emesis constipation diarrhea or other new urinary symptoms. 09/08/2018 the patient is starting to feel better. She does have the ability to elevate her legs for only short periods of time because of discomfort in her breathing. Upon arrival she is sitting upright finishing her dinner. The lower extremities edema has improved as has the discomfort. Seems to be tolerating the therahoney well but does have a significant drainage. Objective - Vital Signs Vital signs: Vital Signs Temp 97.3 F L 09/08/18 15:00 Pulse 86 09/08/18 15:00 Resp 18 09/08/18 15:20 BP 127/55 09/08/18 15:00 Pulse Ox 95 09/08/18 19:23 Intake & Output 09/08/18 09/08/18 09/09/18 06:59 18:59 06:59 Other: # Voids 2 3 # Bowel Movements 0 1 - Exam Pleasant 73-year-old female who suffers from superobesity but is mostly comfortable at this time HEENT: Anicteric conjunctiva are pink and moist nasal mucosa grossly intact without significant lesions, there is no thrush. Dentition is poor for age Neck: The neck is supple without significant lymphadenopathy or thyromegaly. Lungs: Good bilateral air entry without significant crackles or wheezing. There is no significant bronchial sounds. There is no egophony or dullness. Heart: Regular rate and rhythm with an audible S1-S2, no S3 no S4. There is no significant murmur click or rub, PMI was nondisplaced. Abdomen: Obese, Positive bowel sounds soft and nontender without palpable masses or organomegaly. There was no guarding or rebound. Extremities: The upper extremities are intact, the IV site is intact without difficulty. No lesions are noted on the upper extremities. The lower extremities evidence of chronic changes with chronic discoloration with hemosiderin staining, evidence of the amputations the 2 toes on the left foot and single toe from the right foot. The amputation sites are well-healed with no evidence of a necrosis or open ulcerations at this time. The lower extremities have evidence of the chronic edema. There is mild ascending erythema from the site. There was no palpable inguinal lymphadenopathy in the left groin. No other abnormal lymph nodes were palpated at this time.The left leg reveals evidence of edema that is greater than the right. There is evidence of the open ulceration to the left lateral pretibial area measuring 5 x 5 x 0.2 cm with no stiff and bloody drainage today. The dense erythema is improved. Does have a large amount of serous drainage out of the ulceration of the right leg more than the left. Neuro: Awake alert oriented to person place and time. There are no acute new gross focal sensory motor deficits. - Labs CBC & Chem 7: 09/08/18 06:56 09/08/18 06:56 Labs: Abnormal Lab Results - Last 24 Hours (Table) 09/08/18 09/08/18 09/08/18 Range/Units 06:56 12:38 17:28 Carbon Dioxide 33 H (22-30) mmol/L BUN 24 H (7-17) mg/dL POC Glucose (mg/dL) 70 L 134 H (75-99) mg/dL Total Protein 6.1 L (6.3-8.2) g/dL Albumin 3.2 L (3.5-5.0) g/dL 09/08/18 Range/Units 21:01 Carbon Dioxide (22-30) mmol/L BUN (7-17) mg/dL POC Glucose (mg/dL) 103 H (75-99) mg/dL Total Protein (6.3-8.2) g/dL Albumin (3.5-5.0) g/dL Microbiology - Last 24 Hours (Table) 09/05/18 17:16 Blood Culture - Preliminary Blood No Growth after 72 hours Laboratory Results WBC 7.0 k/uL (3.8-10.6) 09/08/18 06:56 RBC 4.57 m/uL (3.80-5.40) 09/08/18 06:56 Hgb 13.6 gm/dL (11.4-16.0) 09/08/18 06:56 Hct 43.0 % (34.0-46.0) 09/08/18 06:56 MCV 94.1 fL (80.0-100.0) 09/08/18 06:56 MCH 29.7 pg (25.0-35.0) 09/08/18 06:56 MCHC 31.5 g/dL (31.0-37.0) 09/08/18 06:56 RDW 13.9 % (11.5-15.5) 09/08/18 06:56 Plt Count 224 k/uL (150-450) 09/08/18 06:56 Neutrophils % 59 % 09/08/18 06:56 Lymphocytes % 26 % 09/08/18 06:56 Monocytes % 9 % 09/08/18 06:56 Eosinophils % 3 % 09/08/18 06:56 Basophils % 1 % 09/08/18 06:56 Neutrophils # 4.1 k/uL (1.3-7.7) 09/08/18 06:56 Lymphocytes # 1.8 k/uL (1.0-4.8) 09/08/18 06:56 Monocytes # 0.6 k/uL (0-1.0) 09/08/18 06:56 Eosinophils # 0.2 k/uL (0-0.7) 09/08/18 06:56 Basophils # 0.1 k/uL (0-0.2) 09/08/18 06:56 Hypochromasia Slight 09/08/18 06:56 PT 11.1 sec (9.0-12.0) 09/05/18 17:16 INR 1.0 (<1.2) 09/05/18 17:16 APTT 24.3 sec (22.0-30.0) 09/05/18 17:16 Sodium 143 mmol/L (137-145) 09/08/18 06:56 Potassium 5.1 mmol/L (3.5-5.1) 09/08/18 06:56 Chloride 105 mmol/L (98-107) 09/08/18 06:56 Carbon Dioxide 33 mmol/L (22-30) H 09/08/18 06:56 Anion Gap 5 mmol/L 09/08/18 06:56 BUN 24 mg/dL (7-17) H 09/08/18 06:56 Creatinine 0.97 mg/dL (0.52-1.04) 09/08/18 06:56 Est GFR (CKD-EPI)AfAm 68 (>60 ml/min/1.73 sqM) 09/08/18 06:56 Est GFR (CKD-EPI)NonAf 59 (>60 ml/min/1.73 sqM) 09/08/18 06:56 Glucose 84 mg/dL (74-99) 09/08/18 06:56 POC Glucose (mg/dL) 103 mg/dL (75-99) H 09/08/18 21:01 POC Glu Craps Manager ID Yoli Yao 09/08/18 21:[address] Glu mg/dL 151 09/06/18 07:58 Hemoglobin A1c 6.9 % (4.0-6.0) H 09/06/18 07:58 Lactic Ac Sepsis Rflx Y 09/05/18 17:45 Plasma Lactic Acid Demian 1.2 mmol/L (0.7-2.0) 09/05/18 21:14 Calcium 8.6 mg/dL (8.4-10.2) 09/08/18 06:56 Total Bilirubin 0.7 mg/dL (0.2-1.3) 09/08/18 06:56 AST 27 U/L (14-36) 09/08/18 06:56 ALT 24 U/L (9-52) 09/08/18 06:56 Alkaline Phosphatase 62 U/L (38-126) 09/08/18 06:56 Total Creatine Kinase 88 U/L (30-135) 09/05/18 17:16 CK-MB (CK-2) 3.1 ng/mL (0.0-2.4) H 09/05/18 17:16 CK-MB (CK-2) Rel Index 3.5 09/05/18 17:16 Troponin I <0.012 ng/mL (0.000-0.034) 09/05/18 17:16 NT-Pro-B Natriuret Pep 515 pg/mL 09/05/18 17:16 Total Protein 6.1 g/dL (6.3-8.2) L 09/08/18 06:56 Albumin 3.2 g/dL (3.5-5.0) L 09/08/18 06:56 Urine Color Yellow 09/05/18 21:00 Urine Appearance Clear (Clear) 09/05/18 21:00 Urine pH 5.5 (5.0-8.0) 09/05/18 21:00 Ur Specific [place] 1.013 (1.001-1.035) 09/05/18 21:00 Urine Protein Negative (Negative) 09/05/18 21:00 Urine Glucose (UA) Negative (Negative) 09/05/18 21:00 Urine Ketones Negative (Negative) 09/05/18 21:00 Urine Blood Negative (Negative) 09/05/18 21:00 Urine Nitrite Negative (Negative) 09/05/18 21:00 Urine Bilirubin Negative (Negative) 09/05/18 21:00 Urine Urobilinogen <2.0 mg/dL (<2.0) 09/05/18 21:00 Ur Leukocyte Esterase Negative (Negative) 09/05/18 21:00 Microbiology 09/05/18 17:16 Blood Blood Culture - Preliminary No Growth after 72 hours Assessment and Plan (1) Cellulitis of left lower leg Narrative/Plan: 73-year-old woman presents to the emergency center with a several week history of increasing swelling erythema to the left lower extremity that is resulted in a blister is now open and is draining. The leg is worsened with increasing redness and tenderness in counseling sought care. At this time appears to have a cellulitis of left lower extremity in antibiotic therapy with vancomycin has been initiated. This will continue. Local wound care with therahoney has been ordered and wraps to be applied. Elevate her legs while she is at rest. Will expect with antibiotic therapy, local care elevation in his glucose control we see some improvement in the lower extremities are rapidly. Hemoglobin A1c is pending, will add a multivitamin and putting supplement if indicated. 09/08/2018 patient is improving with antibiotic therapy with vancomycin. Cultures are in process. She's having no other new acute complaints at this time. Discussed importance of elevation as much as possible. She relates that with her obesity she has difficulties elevating her legs for long periods of time. Unclear what her home compressive therapy is made to well to have Comprifit's or similar device is fit soon. Current Visit: Yes Status: Acute Code(s): L03.116 - CELLULITIS OF LEFT LOWER LIMB SNOMED Code(s): 850478063 (2) Failure of outpatient treatment Current Visit: Yes Status: Acute Code(s): Z78.9 - OTHER SPECIFIED HEALTH STATUS SNOMED Code(s): 346319310 (3) Poorly controlled type 2 diabetes mellitus Current Visit: No Status: Acute Code(s): E11.65 - TYPE 2 DIABETES MELLITUS WITH HYPERGLYCEMIA SNOMED Code(s): 03511020 (4) Obesity, Class III, BMI 40-49.9 (morbid obesity) Current Visit: No Status: Acute Code(s): E66.01 - MORBID (SEVERE) OBESITY DUE TO EXCESS CALORIES SNOMED Code(s): 037316004
[2018-09-09 07:13] LABS: Glucose,Whole Blood 89 mg/dL (75-99)
[2018-09-09] MEDS: MULTIVITAMINS, THERA 1 EACH TAB PO SCH (08:51)
[2018-09-09] MEDS: ATORVASTATIN 10 MG TAB PO SCH (08:51)
[2018-09-09] MEDS: PANTOPRAZOLE 40 MG TABLET PO SCH (08:51)
[2018-09-09] MEDS: ENOXAPARIN 40 MG/0.4 ML SYRINGE SQ SCH (08:52)
[2018-09-09] MEDS: ESCITALOPRAM 20 MG TAB PO SCH (08:52)
[2018-09-09] MEDS: LISINOPRIL 20 MG TAB PO SCH (08:52)
[2018-09-09] MEDS: GABAPENTIN 400 MG CAP PO SCH ×2 (08:52→21:01)
[2018-09-09] MEDS: CLOPIDOGREL 75 MG TAB PO SCH (08:52)
[2018-09-09] MEDS: INSULN ASP PRT/INSULIN ASPART 100 UNIT/ML 10 ML VIAL SQ SCH ×2 (08:52→17:50)
[2018-09-09] MEDS: metFORMIN 500 MG TAB PO SCH ×2 (08:52→23:52)
[2018-09-09] MEDS: INSULIN ASPART 100 UNIT/ML 1 ML 10 ML VIAL SQ SCH ×4 (08:52→21:02)
[2018-09-09] MEDS: SODIUM CHLORIDE 0.9% 1,000 ML IV SCH (08:53)
[2018-09-09] MEDS: HYDROCHLOROTHIAZIDE 50 MG TAB PO SCH (08:53)
[2018-09-09 09:29] LABS: Basophils # (A) 0.1 k/uL (0-0.2); Basophils % (A) 1 %; Eosinophils # (A) 0.2 k/uL (0-0.7); Eosinophils % (A) 3 %; HCT 43.4 % (34.0-46.0); Hypochromasia Moderate; Lymphocytes # (A) 1.7 k/uL (1.0-4.8); Lymphocytes % (A) 25 %; MCH 28.4 pg (25.0-35.0); MCV 94.8 fL (80.0-100.0); Mean Platelet Volume 6.8; Monocytes # (A) 0.6 k/uL (0-1.0); Monocytes % (A) 8 %; Neutrophils # (A) 4.2 k/uL (1.3-7.7); Neutrophils % (A) 61 %; Platelet Count 237 k/uL (150-450); RBC 4.57 m/uL (3.80-5.40); RDW 13.8 % (11.5-15.5); WBC 6.9 k/uL (3.8-10.6)
[2018-09-09 09:34] LABS: Albumin 3.3 g/dL (3.5-5.0); Calcium 8.8 mg/dL (8.4-10.2); Potassium 5.3 mmol/L (3.5-5.1); Total Bilirubin 0.7 mg/dL (0.2-1.3); Total Protein 6.2 g/dL (6.3-8.2)
[2018-09-09] MEDS ORDERED: SODIUM POLYSTYRENE SULFONATE 15 GM/60 ML BOTTLE PO STA (11:03)
--- NOTE | 2018-09-09 11:21 | P.PN ---
Subjective Progress Note Date: 09/09/18 This is a 73-year-old female patient of Dr. Fry. Patient presented to the emergency room with complaints of increased left lower extremity cellulitis that has failed outpatient treatment. Patient has a known past medical history of chronic ulcer to the left bottom foot that she sees Dr. Jarquin and podiatry services. Patient states that over the past 3 days left leg has been increasingly worse with redness and pain. Patient was treated with Cipro and Keflex outpatient was recommended by her marketing account manager to come to emergency room for IV antibiotics. Additional medical history includes diabetes mellitus, hyperlipidemia, hypertension, osteoporosis, pneumonia, neuropathy and obesity. Venous Doppler of left lower extremity completed showing negative for DVT in left lower extremity. Chest x-ray completed showing no acute pulmonary process. Mild cardiomegaly. X-ray of left foot completed showing no suspicious cortical erosions to suggest acute osteomyelitis. Posterior changes within left foot. Mild soft tissue swelling dorsum of the foot. X-ray of the tibia-fibula completed showing no acute osseous abnormality two-view left tibia and fibula. Dr. Jarquin has been consulted for infectious disease. Blood culture has been ordered. Patient currently on vancomycin and Rocephin for IV antibiotics. Physical therapy has continued been consulted. At this time patient denies chest pain or shortness of breath. Patient denies nausea vomiting or diarrhea. Patient denies any urinary burning or frequency or frequency. On 09/07/2018 patient currently resting in bed. Infectious disease is following. Awaiting blood culture results. Patient maintained on IV antibiotics. At this time patient denies chest pain or shortness breath. Patient denies nausea vomiting or diarrhea. Patient denies any urinary burning or frequency On 09/08/2018 patient currently resting comfortably in bed. Left leg dressing has some serous sinuous drainage noted to bottom and anguiano. Patient maintained on IV antibiotics. Culture currently pending. At this time patient denies chest pain or shortness breath. Patient denies nausea vomiting or diarrhea. Patient potassium has improved to 5.1 On 09/09/2018 patient's alert and oriented 3. Discussed case with infectious disease. Upon discharge patient can be DC'd with Keflex by mouth for 1 week. Patient reports that she will not have a ride home from hospital until tomorrow. Potassium remains elevated at 5.3. Will order dose of Kayexalate and recheck. Patient denies chest pain or shortness breath. Patient denies nausea vomiting or diarrhea. Patient denies any urinary burning or frequency Objective - Vital Signs Vital signs: Vital Signs Temp 97.2 F L 09/09/18 06:50 Pulse 83 09/09/18 06:50 Resp 20 09/09/18 06:50 BP 170/69 09/09/18 06:50 Pulse Ox 93 L 09/09/18 06:50 Intake & Output 09/08/18 09/09/18 09/09/18 18:59 06:59 18:59 Other: # Voids 3 2 # Bowel Movements 1 - Exam Head normocephalic Neck supple Lungs clear to auscultation bilaterally no wheezing or crackles Heart regular rate and rhythm S1-S2, no rub or gallop Abdomen is soft nontender nondistended positive bowel sounds no hepatosplenomegaly Extremities no edema. Bilateral lower extremity redness. Left greater than right. Kerlix dressing applied. Serosanguineous drainage noted to bottom left foot anguiano Neuro alert and orientated to 3 - Labs CBC & Chem 7: 09/09/18 08:48 09/09/18 08:48 Labs: Abnormal Lab Results - Last 24 Hours (Table) 09/08/18 09/08/18 09/08/18 Range/Units 12:38 17:28 21:01 MCHC (31.0-37.0) g/dL Potassium (3.5-5.1) mmol/L Carbon Dioxide (22-30) mmol/L BUN (7-17) mg/dL Glucose (74-99) mg/dL POC Glucose (mg/dL) 70 L 134 H 103 H (75-99) mg/dL Total Protein (6.3-8.2) g/dL Albumin (3.5-5.0) g/dL 09/09/18 09/09/18 Range/Units 08:48 08:48 MCHC 30.0 L (31.0-37.0) g/dL Potassium 5.3 H (3.5-5.1) mmol/L Carbon Dioxide 33 H (22-30) mmol/L BUN 22 H (7-17) mg/dL Glucose 171 H (74-99) mg/dL POC Glucose (mg/dL) (75-99) mg/dL Total Protein 6.2 L (6.3-8.2) g/dL Albumin 3.3 L (3.5-5.0) g/dL Microbiology - Last 24 Hours (Table) 09/05/18 17:16 Blood Culture - Preliminary Blood No Growth after 72 hours Assessment and Plan Assessment: 1. left leg cellulitis. Foot x-ray completed showing no suspicious cortical erosion to suggest acute diverticulitis. Postsurgical changes within the left foot. Mild soft tissue swelling dorsum of the foot. Tibia-fibula x-ray showing no acute osseous abnormality two-view left tibia and fibula. Patient consulted to infectious disease. Started on Rocephin and vancomycin. Per infectious disease continue vancomycin for antibiotic. Continue local wound care with Therahoney and wraps. Blood culture currently showing no growth. Per infectious disease patient may be discharged home on Keflex for an additional week 2. Underlying history of multiple infections in the past 3. Diabetes mellitus type 2. HemoGlobin A1c 6.9. Sliding scale insulin ordered along with home medications 4. History of depression. 5. History of morbid obesity. 6. History of hyperlipidemia. 7. History of peripheral neuropathy 8. History of peripheral vascular disease with prior toe amputation. 9. Hyperkalemia. Potassium 5.3. Will order dose of Kayexalate and recheck at 4 PM. DVT prophylaxis Lovenox. GI prophylaxis Protonix I performed an examination of the patient and discussed their management with the Nurse Practitioner. I have reviewed the Nurse Practitioner's notes and agree with the documented findings and plan of care
[2018-09-09 12:36] LABS: Glucose,Whole Blood 115 mg/dL (75-99)
[2018-09-09 13:13] VITALS: BMI 57.6
[2018-09-09] MEDS: amLODIPine 5 MG TAB PO SCH (14:55)
[2018-09-09] MEDS ORDERED: VANCOMYCIN TROUGH DUE 1 EACH MISC MISCELLANE ONE (17:00)
[2018-09-09 17:03] LABS: Glucose,Whole Blood 128 mg/dL (75-99)
[2018-09-09] MEDS: VANCOMYCIN 2,500 MG in SODIUM CHLORIDE 0.9% 500 ML 500 ML IVPB SCH (17:50)
[2018-09-09 20:34] LABS: Glucose,Whole Blood 68 mg/dL (75-99)
[2018-09-09 20:52] LABS: Glucose,Whole Blood 62 mg/dL (75-99)
[2018-09-09 21:14] LABS: Glucose,Whole Blood 81 mg/dL (75-99)
[2018-09-09 23:19] LABS: Glucose,Whole Blood 62 mg/dL (75-99)
[2018-09-09] MEDS ORDERED: DEXTROSE 50%-WATER 50 ML SYRINGE IVP ONE (23:21)
[2018-09-09 23:36] LABS: Glucose,Whole Blood 105 mg/dL (75-99)
[2018-09-09] MEDS ORDERED: DEXTROSE 5% IN WATER 1,000 ML IV SCH (23:45)
[2018-09-09 23:48] VITALS: RESP 18
[2018-09-10 02:27] LABS: Glucose,Whole Blood 98 mg/dL (75-99)
[2018-09-10 04:41] LABS: Glucose,Whole Blood 107 mg/dL (75-99)
[2018-09-10 06:35] LABS: Glucose,Whole Blood 128 mg/dL (75-99)
[2018-09-10] MEDS: SODIUM CHLORIDE 0.9% 1,000 ML IV SCH (06:46)
[2018-09-10 07:45] LABS: Glucose,Whole Blood 126 mg/dL (75-99)
[2018-09-10] MEDS ORDERED: LISINOPRIL 2.5 MG TAB PO SCH (09:00)
[2018-09-10] MEDS: INSULIN ASPART 100 UNIT/ML 1 ML 10 ML VIAL SQ SCH ×3 (09:02→18:02)
[2018-09-10] MEDS: HYDROCHLOROTHIAZIDE 50 MG TAB PO SCH (09:03)
[2018-09-10] MEDS: amLODIPine 5 MG TAB PO SCH (09:03)
[2018-09-10] MEDS: MULTIVITAMINS, THERA 1 EACH TAB PO SCH (09:03)
[2018-09-10] MEDS: ENOXAPARIN 40 MG/0.4 ML SYRINGE SQ SCH (09:03)
[2018-09-10] MEDS: ESCITALOPRAM 20 MG TAB PO SCH (09:03)
[2018-09-10] MEDS: CLOPIDOGREL 75 MG TAB PO SCH (09:03)
[2018-09-10] MEDS: ATORVASTATIN 10 MG TAB PO SCH (09:04)
[2018-09-10] MEDS: metFORMIN 500 MG TAB PO SCH (09:04)
[2018-09-10] MEDS: GABAPENTIN 400 MG CAP PO SCH (09:04)
[2018-09-10] MEDS: PANTOPRAZOLE 40 MG TABLET PO SCH (09:04)
[2018-09-10 10:09] LABS: Albumin 3.3 g/dL (3.5-5.0); Calcium 8.4 mg/dL (8.4-10.2); Potassium 5.2 mmol/L (3.5-5.1); Total Bilirubin 0.7 mg/dL (0.2-1.3); Total Protein 6.1 g/dL (6.3-8.2)
[2018-09-10 10:26] LABS: Basophils % (A) 1 %; Eosinophils # (A) 0.1 k/uL (0-0.7); Eosinophils % (A) 2 %; HCT 42.8 % (34.0-46.0); HGB 12.8 gm/dL (11.4-16.0); Hypochromasia Moderate; Lymphocytes # (A) 1.6 k/uL (1.0-4.8); Lymphocytes % (A) 24 %; MCH 28.6 pg (25.0-35.0); MCV 95.2 fL (80.0-100.0); Mean Platelet Volume 7.2; Monocytes # (A) 0.5 k/uL (0-1.0); Monocytes % (A) 8 %; Neutrophils # (A) 4.1 k/uL (1.3-7.7); Neutrophils % (A) 64 %; Platelet Count 214 k/uL (150-450); RBC 4.49 m/uL (3.80-5.40); RDW 13.9 % (11.5-15.5); WBC 6.5 k/uL (3.8-10.6)
[2018-09-10 12:09] LABS: Glucose,Whole Blood 170 mg/dL (75-99)
[2018-09-10] MEDS ORDERED: SODIUM POLYSTYRENE SULFONATE 15 GM/60 ML BOTTLE PO STA (13:35)
--- NOTE | 2018-09-10 13:47 | P.DS ---
Providers Date of admission: 09/05/18 18:58 Expected date of discharge: 09/10/18 Attending physician: Tiffanie Rangel Consults: 09/05/18 19:23 Consult Physician Stat Consulting Provider: Deni Jarquin Consult Reason/Comments: Left leg cellulitis Do you want consulting provider notified?: Yes Primary care physician: Socorro Fry Hospital Course: Discharge diagnosis 1. left leg cellulitis. Foot x-ray completed showing no suspicious cortical erosion to suggest acute diverticulitis. Postsurgical changes within the left foot. Mild soft tissue swelling dorsum of the foot. Tibia-fibula x-ray showing no acute osseous abnormality two-view left tibia and fibula. Patient consulted to infectious disease. Started on Rocephin and vancomycin. Per infectious disease continue vancomycin for antibiotic. Continue local wound care with Therahoney and wraps. Blood culture currently showing no growth. Per infectious disease patient will be discharged on Ceftin 500 twice a day for 1 week 2. Underlying history of multiple infections in the past 3. Diabetes mellitus type 2. HemoGlobin A1c 6.9. Home dose of 70/30 has been decreased to 70 twice a day. Patient educated on the importance of checking blood sugar multiple times a day to maintain adequate control and prevention of hypoglycemia 4. History of depression. 5. History of morbid obesity. 6. History of hyperlipidemia. 7. History of peripheral neuropathy 8. History of peripheral vascular disease with prior toe amputation. 9. Hyperkalemia. Potassium 5.3. Repeat potassium 5.2. Patient to get Kayexalate prior to discharge. Patient's lisinopril has been decreased to 2.5 mg and Norvasc has been added for blood pressure control 10. Hypoglycemia. Per nursing therapy such 60s this AM. Patient's blood sugar has been greater than 150. Patient home dose of 70/30 will be decreased to 70 units twice a day and patient to follow-up with her PCP Hospital course This is a 73-year-old female patient of Dr. Fry. Patient presented to the emergency room with complaints of increased left lower extremity cellulitis that has failed outpatient treatment. Patient has a known past medical history of chronic ulcer to the left bottom foot that she sees Dr. Jarquin and podiatry services. Patient states that over the past 3 days left leg has been increasingly worse with redness and pain. Patient was treated with Cipro and Keflex outpatient was recommended by her interactive developer to come to emergency room for IV antibiotics. Additional medical history includes diabetes mellitus, hyperlipidemia, hypertension, osteoporosis, pneumonia, neuropathy and obesity. Venous Doppler of left lower extremity completed showing negative for DVT in left lower extremity. Chest x-ray completed showing no acute pulmonary process. Mild cardiomegaly. X-ray of left foot completed showing no suspicious cortical erosions to suggest acute osteomyelitis. Posterior changes within left foot. Mild soft tissue swelling dorsum of the foot. X-ray of the tibia-fibula completed showing no acute osseous abnormality two-view left tibia and fibula. Dr. Jarquin has been consulted for infectious disease. Blood culture has been ordered. Patient currently on vancomycin and Rocephin for IV antibiotics. Physical therapy has continued been consulted. At this time patient denies chest pain or shortness of breath. Patient denies nausea vomiting or diarrhea. Patient denies any urinary burning or frequency or frequency. On 09/07/2018 patient currently resting in bed. Infectious disease is following. Awaiting blood culture results. Patient maintained on IV antibiotics. At this time patient denies chest pain or shortness breath. Patient denies nausea vomiting or diarrhea. Patient denies any urinary burning or frequency On 09/08/2018 patient currently resting comfortably in bed. Left leg dressing has some serous sinuous drainage noted to bottom and anguiano. Patient maintained on IV antibiotics. Culture currently pending. At this time patient denies chest pain or shortness breath. Patient denies nausea vomiting or diarrhea. Patient potassium has improved to 5.1 On 09/09/2018 patient's alert and oriented 3. Discussed case with infectious disease. Upon discharge patient can be DC'd with Keflex by mouth for 1 week. Patient reports that she will not have a ride home from hospital until tomorrow. Potassium remains elevated at 5.3. Will order dose of Kayexalate and recheck. Patient denies chest pain or shortness breath. Patient denies nausea vomiting or diarrhea. Patient denies any urinary burning or frequency On 09/10/2018 patient's alert and oriented 3. Per nursing staff patient had episode of hypoglycemia with blood sugar in the 60s this AM. Patient's sugar has improved with breakfast and lunch. [place] 70[address] will be decreased to 70 units twice a day and patient advised to check frequently at home with her glucometer and to follow her PCP. Patient's potassium also remains elevated at 5.2. Patient has been given multiple doses of Kayexalate throughout stay. Lisinopril has also been decreased to 2.5 mg of Norvasc has been added. Patient to get dose of care psychiatry discharge and to follow-up with her PCP. CMP and CBC will be ordered for 2 days. At this time patient denies chest pain or shortness breath. Patient denies nausea vomiting or diarrhea. Patient denies any urinary burning or frequency. Patient has been cleared for discharge from infectious disease. Patient will be discharged on Ceftin for 1 more week Thera honey prescription has been given to patient. I performed an examination of the patient and discussed their management with the Nurse Practitioner. I have reviewed the Nurse Practitioner's notes and agree with the documented findings and plan of care Patient Condition at Discharge: Stable Plan - Discharge Summary Discharge Rx Participant: No New Discharge Prescriptions: New Cefuroxime Axetil [Ceftin] 500 mg PO BID #14 tab amLODIPine [Norvasc] 5 mg PO DAILY #30 tab Lisinopril [Zestril] 2.5 mg PO DAILY #30 tab Continue Hydrochlorothiazide 50 mg PO DAILY metFORMIN HCL 1,000 mg PO BID Gabapentin 800 mg PO BID Lovastatin [Mevacor] 20 mg PO DAILY Escitalopram [Lexapro] 20 mg PO DAILY Clopidogrel [Plavix] 75 mg PO DAILY Ipratropium-Albuterol Nebulize [Duoneb 0.5 mg-3 mg/3 ml Soln] 3 ml INHALATION RT-BID PRN PRN Reason: Shortness Of Breath Ibuprofen [Motrin Ib] 400 mg PO BID PRN PRN Reason: Pain Changed Insulin NPH Hum/Reg Insulin Hm [NovoLIN 70-30 100 UNIT/ML VIAL] 70 unit SQ AC -BID #1 vial Discontinued Enalapril [Vasotec] 20 mg PO DAILY Clindamycin HCl 300 mg PO TID Ciprofloxacin HCl [Cipro] 500 mg PO Q12H Discharge Medication List Clopidogrel [Plavix] 75 mg PO DAILY 05/02/18 [History] Escitalopram [Lexapro] 20 mg PO DAILY 05/02/18 [History] Gabapentin 800 mg PO BID 05/02/18 [History] Hydrochlorothiazide 50 mg PO DAILY 05/02/18 [History] Lovastatin [Mevacor] 20 mg PO DAILY 05/02/18 [History] metFORMIN HCL 1,000 mg PO BID 05/02/18 [History] Ibuprofen [Motrin Ib] 400 mg PO BID PRN 09/05/18 [History] Ipratropium-Albuterol Nebulize [Duoneb 0.5 mg-3 mg/3 ml Soln] 3 ml INHALATION RT -BID PRN 09/05/18 [History] Cefuroxime Axetil [Ceftin] 500 mg PO BID #14 tab 09/09/18 [Rx] Insulin NPH Hum/Reg Insulin Hm [NovoLIN 70-30 100 UNIT/ML VIAL] 70 unit SQ AC- BID #1 vial 09/10/18 [Rx] Lisinopril [Zestril] 2.5 mg PO DAILY #30 tab 09/10/18 [Rx] amLODIPine [Norvasc] 5 mg PO DAILY #30 tab 09/10/18 [Rx] Follow up Appointment(s)/Referral(s): Socorro Fry MD [Primary Care Provider] - 09/12/18 10:15 am [facility] Visiting Nurse, [NON-STAFF] - Ambulatory/Diagnostic Orders: Complete Blood Count w/diff [LAB.AMB] Time Frame: 2 Days, Location: None Selected Comprehensive Metabolic Panel [LAB.AMB] Time Frame: 2 Days, Location: None Selected Patient Instructions/Handouts: Cellulitis (DC) Activity/Diet/Wound Care/Special Instructions: wound care BID: Therahoney, 4x4, Kerlix activity as tolerated consistent carb/heart healthy Thera honey prescription to be given to patient Discharge Disposition: HOME WITH HOME HEALTH SERVICES
[2018-09-10 16:19] VITALS: BP 170/71; PULSE 74; TEMP 97.5
[2018-09-10 17:12] LABS: Glucose,Whole Blood 250 mg/dL (75-99)
== END 2018-09-10 18:10 | disposition home health service (06) | DRG 603 ==
LOC: EC 16:08 → 4MS4W 18:58
PROVIDERS: ADMIT Internal Medicine; ATTEND Internal Medicine
DX: L03.116 Cellulitis of left lower limb (principal); Z68.43 Body mass index [BMI] 50.0-59.9, adult; E11.40 Type 2 diabetes mellitus with diabetic neuropathy, unspecified; E11.51 Type 2 diabetes mellitus with diabetic peripheral angiopathy without gangrene; E11.621 Type 2 diabetes mellitus with foot ulcer; E11.65 Type 2 diabetes mellitus with hyperglycemia; E66.01 Morbid (severe) obesity due to excess calories; E78.5 Hyperlipidemia, unspecified; E87.5 Hyperkalemia; I10 Essential (primary) hypertension; L97.529 Non-pressure chronic ulcer of other part of left foot with unspecified severity; M81.0 Age-related osteoporosis without current pathological fracture; Z79.02 Long term (current) use of antithrombotics/antiplatelets; Z79.4 Long term (current) use of insulin; Z79.899 Other long term (current) drug therapy; Z81.8 Family history of other mental and behavioral disorders; Z82.49 Family history of ischemic heart disease and other diseases of the circulatory system; Z87.891 Personal history of nicotine dependence; Z89.422 Acquired absence of other left toe(s); Z89.421 Acquired absence of other right toe(s); Z88.2 Allergy status to sulfonamides; Z88.8 Allergy status to other drugs, medicaments and biological substances; Z80.0 Family history of malignant neoplasm of digestive organs; Z98.42 Cataract extraction status, left eye; Z98.41 Cataract extraction status, right eye; F40.240 Claustrophobia; M19.90 Unspecified osteoarthritis, unspecified site; F32.9 Major depressive disorder, single episode, unspecified; M54.9 Dorsalgia, unspecified; G89.29 Other chronic pain; Z82.3 Family history of stroke; Z87.01 Personal history of pneumonia (recurrent)
CPT/HCPCS: 36415; 71046; 80053; 80202; 81003; 82550; 82553; 82947; 83036; 83605; 83880; 84132; 84484; 85025; 85610; 85730; 87040; 93005; 94760; 96365; 99285

== ENCOUNTER 2018-11-06 12:37 | Inpatient (IN) | payer MEDICARE ==
--- NOTE | 2018-11-06 13:16 | ED ---
Extremity Problem HPI - General Chief complaint: Extremity Problem,Nontraumatic Stated complaint: diabetic ulcer lt foot Time Seen by Provider: 11/06/18 12:54 Source: patient, RN notes reviewed, old records reviewed Mode of arrival: ambulatory Limitations: no limitations - History of Present Illness Initial comments: This is a 73-year-old female the ER for evasive left foot pain, she states she has history of diabetic foot ulcer severe ulcer of the left foot that is been nonhealing on outpatient basis and became malodorous. Denies fevers does state her left leg is increased and erythema. Patient also has erythema and cellulitis of left lower extremity as well as swelling MD Complaint: extremity pain, extremity swelling, other (Left lower as well as ulcer on the plantar aspect of his foot) -: days(s) Location: left History of Same: Yes Radiation: none Severity scale (1-10): 7 Quality: aching Consistency: constant Improves with: nothing Worsens with: weight bearing Associated Symptoms: denies other symptoms - Related Data Home Medications Medication Instructions Recorded Confirmed Clopidogrel [Plavix] 75 mg PO DAILY 05/02/18 11/06/18 Escitalopram [Lexapro] 20 mg PO DAILY 05/02/18 11/06/18 Gabapentin 800 mg PO BID 05/02/18 11/06/18 Hydrochlorothiazide 50 mg PO DAILY 05/02/18 11/06/18 Lovastatin [Mevacor] 20 mg PO DAILY 05/02/18 11/06/18 metFORMIN HCL 1,000 mg PO BID 05/02/18 11/06/18 Ibuprofen [Motrin Ib] 400 mg PO BID PRN 09/05/18 11/06/18 Ipratropium-Albuterol Nebulize 3 ml INHALATION RT-BID PRN 09/05/18 11/06/18 [Duoneb 0.5 mg-3 mg/3 ml Soln] Previous Rx's Medication Instructions Recorded Insulin NPH Hum/Reg Insulin Hm 70 unit SQ AC-BID #1 vial 09/10/18 [NovoLIN 70-30 100 UNIT/ML VIAL] Lisinopril [Zestril] 2.5 mg PO DAILY #30 tab 09/10/18 amLODIPine [Norvasc] 5 mg PO DAILY #30 tab 09/10/18 Allergies Allergy/AdvReac Type Severity Reaction Status Date / Time adhesive tape Allergy Rash/Hives Verified 11/06/18 13:52 bacitracin Allergy Rash/Hives Verified 11/06/18 13:52 [From Neosporin ([id number])] miconazole Allergy Rash/Hives Verified 11/06/18 13:52 [From Neosporin AF] morphine Allergy Unknown Verified 11/06/18 13:52 neomycin Allergy Rash/Hives Verified 11/06/18 13:52 [From Neosporin ([id number])] Penicillins Allergy Unknown Verified 11/06/18 13:52 polymyxin B Allergy Rash/Hives Verified 11/06/18 13:52 [From Neosporin ([id number])] Sulfa (Sulfonamide Allergy Unknown Verified 11/06/18 13:52 Antibiotics) Review of Systems ROS Statement: Those systems with pertinent positive or pertinent negative responses have been documented in the HPI. ROS Other: All systems not noted in ROS Statement are negative. Past Medical History Past Medical History: Diabetes Mellitus, Hyperlipidemia, Hypertension, Osteoarthritis (OA), Pneumonia Additional Past Medical History / Comment(s): neuropathy to legs/feet, lt eye gets blurry at times,occ heart burn takes tums, cellulitis lower extremities. History of Any Multi-Drug Resistant Organisms: None Reported Past Surgical History: Tonsillectomy Additional Past Surgical History / Comment(s): CYST REMOVAL ON LEGS, rt 3rd toe amp, left 2nd and 3rd toes amp, benign lumps removed from breasts, melita cataracts, venous doppler studies Past Anesthesia/Blood Transfusion Reactions: No Reported Reaction Additional Past Anesthesia/Blood Transfusion Reaction / Comment(s): clausterphobia Past Psychological History: No Psychological Hx Reported Smoking Status: Former smoker Past Alcohol Use History: None Reported Past Drug Use History: None Reported - Past Family History Father Family Medical History: Myocardial Infarction (ID) Additional Family Medical History / Comment(s): smoked Mother Family Medical History: CVA/TIA Additional Family Medical History / Comment(s): heart problems, schizophrenia Brother(s) Family Medical History: Cancer Additional Family Medical History / Comment(s): pancareatic cacner General Exam Limitations: no limitations General appearance: alert, in no apparent distress Head exam: Present: atraumatic, normocephalic, normal inspection Eye exam: Present: normal appearance, PERRL, EOMI. Absent: scleral icterus, conjunctival injection, periorbital swelling ENT exam: Present: normal exam, mucous membranes moist Neck exam: Present: normal inspection. Absent: tenderness, meningismus, lymphadenopathy Respiratory exam: Present: normal lung sounds bilaterally. Absent: respiratory distress, wheezes, rales, rhonchi, stridor Cardiovascular Exam: Present: regular rate, normal rhythm, normal heart sounds. Absent: systolic murmur, diastolic murmur, rubs, gallop, clicks GI/Abdominal exam: Present: soft, normal bowel sounds. Absent: distended, tenderness, guarding, rebound, rigid Extremities exam: Present: normal inspection, full ROM, normal capillary refill, other (Miscarriage left foot ulcer, Deepthi-Vu with drainage and significant cellulitis). Absent: tenderness, pedal edema, joint swelling, calf tenderness Back exam: Present: normal inspection Neurological exam: Present: alert, oriented X3, CN II-XII intact Psychiatric exam: Present: normal affect, normal mood Skin exam: Present: warm, dry, intact, normal color. Absent: rash Course Vital Signs 11/06/18 11/06/18 12:43 14:22 Temperature 98.6 F Pulse Rate 90 85 Respiratory 18 18 Rate Blood Pressure 131/55 129/61 O2 Sat by Pulse 92 L 93 L Oximetry - Reevaluation(s) Reevaluation #1: 11/06/18 15:14 Records reviewed with history of same Medical Decision Making - Medical Decision Making 73 female the ER for eversion of left foot pain and swelling. Patient is significant cellulitis as well as odorous malodorous ulcer. Patient will be admitted for IV antibiotics and wound care - Lab Data Result diagrams: 11/06/18 13:10 11/06/18 13:10 Lab Results 11/06/18 11/06/18 11/06/18 Range/Units 13:10 13:10 13:10 WBC 13.8 H (3.8-10.6) k/uL RBC 5.19 (3.80-5.40) m/uL Hgb 14.8 (11.4-16.0) gm/dL Hct 47.1 H (34.0-46.0) % MCV 90.8 (80.0-100.0) fL MCH 28.5 (25.0-35.0) pg MCHC 31.4 (31.0-37.0) g/dL RDW 14.0 (11.5-15.5) % Plt Count 268 (150-450) k/uL Neutrophils % 69 % Lymphocytes % 22 % Monocytes % 6 % Eosinophils % 1 % Basophils % 1 % Neutrophils # 9.5 H (1.3-7.7) k/uL Lymphocytes # 3.0 (1.0-4.8) k/uL Monocytes # 0.9 (0-1.0) k/uL Eosinophils # 0.2 (0-0.7) k/uL Basophils # 0.1 (0-0.2) k/uL PT 11.3 (9.0-12.0) sec INR 1.1 (<1.2) APTT 24.9 (22.0-30.0) sec Sodium 142 (137-145) mmol/L Potassium 4.2 (3.5-5.1) mmol/L Chloride 101 (98-107) mmol/L Carbon Dioxide 31 H (22-30) mmol/L Anion Gap 10 mmol/L BUN 27 H (7-17) mg/dL Creatinine 0.87 (0.52-1.04) mg/dL Est GFR (CKD-EPI)AfAm 78 (>60 ml/min/1.73 sqM) Est GFR (CKD-EPI)NonAf 67 (>60 ml/min/1.73 sqM) Glucose 55 L (74-99) mg/dL Plasma Lactic Acid Demian (0.7-2.0) mmol/L Calcium 8.7 (8.4-10.2) mg/dL Phosphorus 2.5 (2.5-4.5) mg/dL Magnesium 1.2 L (1.6-2.3) mg/dL Total Bilirubin 1.0 (0.2-1.3) mg/dL AST 23 (14-36) U/L ALT 25 (9-52) U/L Alkaline Phosphatase 81 (38-126) U/L Troponin I (0.000-0.034) ng/mL Total Protein 6.8 (6.3-8.2) g/dL Albumin 3.6 (3.5-5.0) g/dL 11/06/18 11/06/18 Range/Units 13:10 13:42 WBC (3.8-10.6) k/uL RBC (3.80-5.40) m/uL Hgb (11.4-16.0) gm/dL Hct (34.0-46.0) % MCV (80.0-100.0) fL MCH (25.0-35.0) pg MCHC (31.0-37.0) g/dL RDW (11.5-15.5) % Plt Count (150-450) k/uL Neutrophils % % Lymphocytes % % Monocytes % % Eosinophils % % Basophils % % Neutrophils # (1.3-7.7) k/uL Lymphocytes # (1.0-4.8) k/uL Monocytes # (0-1.0) k/uL Eosinophils # (0-0.7) k/uL Basophils # (0-0.2) k/uL PT (9.0-12.0) sec INR (<1.2) APTT (22.0-30.0) sec Sodium (137-145) mmol/L Potassium (3.5-5.1) mmol/L Chloride (98-107) mmol/L Carbon Dioxide (22-30) mmol/L Anion Gap mmol/L BUN (7-17) mg/dL Creatinine (0.52-1.04) mg/dL Est GFR (CKD-EPI)AfAm (>60 ml/min/1.73 sqM) Est GFR (CKD-EPI)NonAf (>60 ml/min/1.73 sqM) Glucose (74-99) mg/dL Plasma Lactic Acid Demian 2.3 H* (0.7-2.0) mmol/L Calcium (8.4-10.2) mg/dL Phosphorus (2.5-4.5) mg/dL Magnesium (1.6-2.3) mg/dL Total Bilirubin (0.2-1.3) mg/dL AST (14-36) U/L ALT (9-52) U/L Alkaline Phosphatase (38-126) U/L Troponin I <0.012 (0.000-0.034) ng/mL Total Protein (6.3-8.2) g/dL Albumin (3.5-5.0) g/dL - EKG Data -: EKG Interpreted by Me (EKG shows sinus rhythm rate of 83, PA 170, QRS 92, QTc 444) - Radiology Data Radiology results: report reviewed (X-ray foot is negative for acute disease), image reviewed Disposition Clinical Impression: Cellulitis of left leg, Failure of outpatient treatment, Poorly controlled type 2 diabetes mellitus, Cellulitis of left lower leg, Diabetic foot ulcer Disposition: ADMITTED IP TO THIS [facility] Condition: Fair Is patient prescribed a controlled substance at d/c from ED?: No Referrals: Socorro Fry MD [Primary Care Provider] - 1-2 days
[2018-11-06] MEDS ORDERED: VANCOMYCIN IV PER PHARMACY 1 EACH MISC MISCELLANE PRN (13:23)
[2018-11-06] MEDS ORDERED: SODIUM CHLORIDE 0.9% 1,000 ML IV STA (13:23)
[2018-11-06] MEDS ORDERED: VANCOMYCIN 2,250 MG in SODIUM CHLORIDE 0.9% 500 ML 500 ML IVPB ONE (13:45)
[2018-11-06 13:49] LABS: Basophils # (A) 0.1 k/uL (0-0.2); Basophils % (A) 1 %; Eosinophils # (A) 0.2 k/uL (0-0.7); Eosinophils % (A) 1 %; HCT 47.1 % (34.0-46.0); HGB 14.8 gm/dL (11.4-16.0); Lymphocytes % (A) 22 %; MCH 28.5 pg (25.0-35.0); MCHC 31.4 g/dL (31.0-37.0); MCV 90.8 fL (80.0-100.0); Mean Platelet Volume 6.6; Monocytes # (A) 0.9 k/uL (0-1.0); Monocytes % (A) 6 %; Neutrophils # (A) 9.5 k/uL (1.3-7.7); Neutrophils % (A) 69 %; Platelet Count 268 k/uL (150-450); RBC 5.19 m/uL (3.80-5.40); WBC 13.8 k/uL (3.8-10.6)
[2018-11-06 14:07] LABS: Albumin 3.6 g/dL (3.5-5.0); Calcium 8.7 mg/dL (8.4-10.2); Magnesium 1.2 mg/dL (1.6-2.3); Phosphorus 2.5 mg/dL (2.5-4.5); Potassium 4.2 mmol/L (3.5-5.1); Total Protein 6.8 g/dL (6.3-8.2)
[2018-11-06 14:13] LABS: INR 1.1 (<1.2); Partial Thromboplastin Time 24.9 sec (22.0-30.0); Prothrombin Time 11.3 sec (9.0-12.0)
--- NOTE | 2018-11-06 14:20 | XR ---
Left foot HISTORY: Diabetic foot ulcer plantar surface 3 views of the left foot correlated to prior left foot 09/05/2018 There is no significant interval change. Postop changes are again noted, arterial vascular calcificat ions are seen. Alignment, bone mineralization, joint spaces are stable. There is a plantar calcaneal spur. Soft tissue oval calcifications in the plantar aspect of the foot within the sole are stable. L ucency in the soft tissues compatible with patient's history of the plantar aspect of the foot. There is soft tissue swelling. IMPRESSION: Findings compatible with patient's history.
[2018-11-06] MEDS ORDERED: IPRATROPIUM-ALBUTEROL 3 ML NEB INHALATION PRN (15:55)
--- NOTE | 2018-11-06 16:13 | P.HPIM ---
History of Present Illness H&P Date: 11/06/18 Chief Complaint: Left foot infection This is a 73-year-old female, patient of Dr. Fry. She has a known past medical history of diabetes mellitus, cellulitis, left diabetic foot ulcer, hypertension, hyperdynamic lipidemia, peripheral vascular disease with previous right and left toe amputations. Patient presents to the ER due to a left foot ulcer and cellulitis of the left leg. Patient follows up with podiatry she states that in August she had a procedure and possibly debridement to the left foot ulcer. The wound area has yet to close since then. She recently completed antibiotic treatment for the foot infection. She went to see her free lance model, Dr. Harvey today. Dr. Harvey referred her to come to the ER due to left foot ulcer with cellulitis and evidence of infection. It also was malodorous. Patient denies any fever, chills, sweats, nausea or vomiting, bowel movement changes or urinary symptoms. She does report pain with walking. The ulcer is on the left plantar aspect of the foot. It appears that there is some bone visible there is a follow odor. She's been started on vancomycin and Rocephin in the ER. White count elevated 13.8 lactic acid 2.3. Infectious disease has been consulted. X-ray showing soft tissue swelling Review of Systems Please refer to HPI otherwise unremarkable Past Medical History Past Medical History: Diabetes Mellitus, Hyperlipidemia, Hypertension, Osteoarthritis (OA), Pneumonia Additional Past Medical History / Comment(s): neuropathy to legs/feet, lt eye gets blurry at times,occ heart burn takes tums, cellulitis lower extremities. History of Any Multi-Drug Resistant Organisms: None Reported Past Surgical History: Tonsillectomy Additional Past Surgical History / Comment(s): CYST REMOVAL ON LEGS, rt 3rd toe amp, left 2nd and 3rd toes amp, benign lumps removed from breasts, melita cataracts, venous doppler studies Past Anesthesia/Blood Transfusion Reactions: No Reported Reaction Additional Past Anesthesia/Blood Transfusion Reaction / Comment(s): clausterphobia Past Psychological History: No Psychological Hx Reported Smoking Status: Former smoker Past Alcohol Use History: None Reported Past Drug Use History: None Reported - Past Family History Father Family Medical History: Myocardial Infarction ([place]) Additional Family Medical History / Comment(s): smoked Mother Family Medical History: CVA/TIA Additional Family Medical History / Comment(s): heart problems, schizophrenia Brother(s) Family Medical History: Cancer Additional Family Medical History / Comment(s): pancareatic cacner Medications and Allergies Home Medications Medication Instructions Recorded Confirmed Type Clopidogrel [Plavix] 75 mg PO DAILY 05/02/18 11/06/18 History Escitalopram [Lexapro] 20 mg PO DAILY 05/02/18 11/06/18 History Gabapentin 800 mg PO BID 05/02/18 11/06/18 History Hydrochlorothiazide 50 mg PO DAILY 05/02/18 11/06/18 History Lovastatin [Mevacor] 20 mg PO DAILY 05/02/18 11/06/18 History metFORMIN HCL 1,000 mg PO BID 05/02/18 11/06/18 History Ibuprofen [Motrin Ib] 400 mg PO BID PRN 09/05/18 11/06/18 History Ipratropium-Albuterol Nebulize 3 ml INHALATION RT-BID PRN 09/05/18 11/06/18 History [Duoneb 0.5 mg-3 mg/3 ml Soln] Insulin NPH Hum/Reg Insulin Hm 70 unit SQ AC-BID #1 vial 09/10/18 11/06/18 Rx [NovoLIN 70-30 100 UNIT/ML VIAL] Lisinopril [Zestril] 2.5 mg PO DAILY #30 tab 09/10/18 11/06/18 Rx amLODIPine [Norvasc] 5 mg PO DAILY #30 tab 09/10/18 11/06/18 Rx Allergies Allergy/AdvReac Type Severity Reaction Status Date / Time adhesive tape Allergy Rash/Hives Verified 11/06/18 13:52 bacitracin Allergy Rash/Hives Verified 11/06/18 13:52 [From Neosporin ([id number])] miconazole Allergy Rash/Hives Verified 11/06/18 13:52 [From Neosporin AF] morphine Allergy Unknown Verified 11/06/18 13:52 neomycin Allergy Rash/Hives Verified 11/06/18 13:52 [From Neosporin ([id number])] Penicillins Allergy Unknown Verified 11/06/18 13:52 polymyxin B Allergy Rash/Hives Verified 11/06/18 13:52 [From Neosporin ([id number])] Sulfa (Sulfonamide Allergy Unknown Verified 11/06/18 13:52 Antibiotics) Physical Exam Vitals: Vital Signs Temp Pulse Resp BP Pulse Ox 11/06/18 15:41 98.3 F 88 18 129/61 97 11/06/18 14:22 85 18 129/61 93 L 11/06/18 12:43 98.6 F 90 18 131/55 92 L Intake and Output 11/06/18 11/06/18 11/06/18 06:59 14:59 22:59 Other: Weight 161.071 kg Head normocephalic Neck supple Lungs clear to auscultation bilaterally no wheezing or crackles Heart regular rate and rhythm S1-S2, no rub or gallop Abdomen is soft nontender nondistended positive bowel sounds no hepat osplenomegaly Extremities no edema. Left foot plantar aspect ulcer about 3 cm in height by 2 cm depth. The wound is deep possible visualization of bone. Follow odor and yellowish discharge. Yellowish skin noted around the open ulcer. Tender with palpation. Neuro alert and orientated to 3 Results CBC & Chem 7: 11/06/18 13:10 11/06/18 13:10 Labs: Abnormal Lab Results - Last 24 Hours (Table) 11/06/18 11/06/18 11/06/18 Range/Units 13:10 13:10 13:42 WBC 13.8 H (3.8-10.6) k/uL Hct 47.1 H (34.0-46.0) % Neutrophils # 9.5 H (1.3-7.7) k/uL Carbon Dioxide 31 H (22-30) mmol/L BUN 27 H (7-17) mg/dL Glucose 55 L (74-99) mg/dL Plasma Lactic Acid Demian 2.3 H* (0.7-2.0) mmol/L Magnesium 1.2 L (1.6-2.3) mg/dL Assessment and Plan Assessment: 1. Infected Left foot ulcer with cellulitis: Obtain wound culture and blood culture. Foot x-ray showing soft tissue swelling. Consult infectious disease. Continue Rocephin and vancomycin. 2. Hypomagnesemia give magnesium supplement 3. Diabetes mellitus type 2 patient is hypoglycemic in the ER with blood sugar 55. We'll hold patient's insulin and metformin. Place on NovoLog sliding scale with Accu-Cheks every before meals and at bedtime. Check hemoglobin A1c 4. History of peripheral vascular disease with prior toe amputation on both feet 5. Prior Hospitalization with bilateral lower extremity cellulitis in August 6. Peripheral neuropathy 7. Morbid obesity 8. Essential Hypertension 9. Chronic hypoxic respiratory failure. On 2 L of oxygen at home 10. Prior history of COPD. Continue nebulas or treatments as needed DVT prophylaxis Lovenox and GI prophylaxis Pepcid Time with Patient: Greater than 30 (Greater than 50% of the total time spent in counseling and coordination of care.I performed an examination of the patient and discussed their management with the physician Lead Software Engineer. I have reviewed the Physician Lead Software Engineer's notes and agree with the documented findings and plan of care)
[2018-11-06 16:26] VITALS: BMI 57.3
[2018-11-06] MEDS: INSULIN ASPART (NovoLOG) 100 UNIT/ML VIAL SQ SCH ×2 (17:09→20:44)
[2018-11-06 17:28] LABS: Glucose,Whole Blood 59 mg/dL (75-99)
[2018-11-06 17:37] LABS: Glucose,Whole Blood 50 mg/dL (75-99)
[2018-11-06 17:38] LABS: Glucose,Whole Blood 88 mg/dL (75-99)
[2018-11-06] MEDS: GABAPENTIN 400 MG CAP PO SCH (19:53)
[2018-11-06] MEDS: MAGNESIUM SULFATE-D5W PMX 1 GM in DEXTROSE/WATER 1 100ML.BAG IVPB SCH ×2 (19:53→20:44)
[2018-11-06 20:20] LABS: Glucose,Whole Blood 119 mg/dL (75-99)
[2018-11-06] MEDS ORDERED: metFORMIN 500 MG TAB PO SCH (21:00)
[2018-11-06 22:53] LABS: Appearance,Urine Cloudy (Clear); Bilirubin,Urine Negative (Negative); Blood,Urine Small (Negative); Color,Urine Yellow; Glucose,Urine (UA) Negative (Negative); Ketones,Urine Negative (Negative); Leukocyte Esterase,Urine Large (Negative); Nitrite,Urine Negative (Negative); Protein,Urine Negative (Negative); RBC,Urine 3 /hpf (0-5); Specific Gravity,Urine 1.014 (1.001-1.035); Squamous Epithelial Cell,Urine 2 /hpf (0-4); Urobilinogen,Urine <2.0 mg/dL (<2.0); WBC,Urine >182 /hpf (0-5)
[2018-11-07] MEDS: VANCOMYCIN 2,250 MG in SODIUM CHLORIDE 0.9% 500 ML 500 ML IVPB SCH ×2 (05:24→22:07)
[2018-11-07 07:05] LABS: Glucose,Whole Blood 119 mg/dL (75-99)
[2018-11-07] MEDS: INSULIN ASPART (NovoLOG) 100 UNIT/ML VIAL SQ SCH ×4 (07:22→22:07)
[2018-11-07] MEDS: IBUPROFEN 200 MG TAB PO PRN (07:22)
[2018-11-07] MEDS: GABAPENTIN 400 MG CAP PO SCH ×2 (07:23→22:07)
[2018-11-07] MEDS: ATORVASTATIN 10 MG TAB PO SCH (07:23)
[2018-11-07] MEDS: ESCITALOPRAM 20 MG TAB PO SCH (07:24)
[2018-11-07] MEDS: FAMOTIDINE 20 MG TAB PO SCH (07:24)
[2018-11-07] MEDS: amLODIPine 5 MG TAB PO SCH (07:24)
[2018-11-07] MEDS: CLOPIDOGREL 75 MG TAB PO SCH (07:24)
[2018-11-07] MEDS: LISINOPRIL 2.5 MG TAB PO SCH (07:24)
[2018-11-07] MEDS: ENOXAPARIN 40 MG/0.4 ML SYRINGE SQ SCH (07:24)
[2018-11-07] MEDS: HYDROCHLOROTHIAZIDE 50 MG TAB PO SCH (07:24)
[2018-11-07 08:25] LABS: Basophils # (A) 0.1 k/uL (0-0.2); Basophils % (A) 1 %; Eosinophils # (A) 0.2 k/uL (0-0.7); Eosinophils % (A) 2 %; HCT 46.8 % (34.0-46.0); HGB 14.6 gm/dL (11.4-16.0); Lymphocytes # (A) 2.1 k/uL (1.0-4.8); Lymphocytes % (A) 20 %; MCH 28.3 pg (25.0-35.0); MCHC 31.2 g/dL (31.0-37.0); MCV 90.8 fL (80.0-100.0); Mean Platelet Volume 6.5; Monocytes # (A) 0.9 k/uL (0-1.0); Monocytes % (A) 9 %; Neutrophils # (A) 6.9 k/uL (1.3-7.7); Neutrophils % (A) 67 %; Platelet Count 276 k/uL (150-450); RBC 5.16 m/uL (3.80-5.40); WBC 10.3 k/uL (3.8-10.6)
[2018-11-07 08:27] LABS: Albumin 3.3 g/dL (3.5-5.0); Calcium 8.4 mg/dL (8.4-10.2); Magnesium 1.5 mg/dL (1.6-2.3); Potassium 4.5 mmol/L (3.5-5.1); Total Bilirubin 1.2 mg/dL (0.2-1.3); Total Protein 6.4 g/dL (6.3-8.2)
[2018-11-07] MEDS ORDERED: LIDOCAINE 1% INJ 10MG/ML (20 ML MDV) SQ ONE (09:03)
--- NOTE | 2018-11-07 09:59 | P.CONS ---
History of Present Illness - Reason for Consult Consult date: 11/07/18 Left foot ulcer - History of Present Illness This is a 73-year-old female well-known to ID service with underlying history of super obesity, diabetes mellitus type 2, chronic left foot diabetic ulcer and severe peripheral vascular disease. Patient has had multiple interventions in the past for peripheral artery procedures with arthrectomy's. Patient has been recently following with her mixer operator hot metal Dr. Reyna for left foot ulcer beginning the end of August. She states that he opened an area in the office and she has been following with him every week but recently changed to Dr. Harvey. She states it has not been getting any better and her home care nurse on Saturday was quite concerned that there was more redness. She saw Dr. Harvey on and was told to come into [facility] for evaluation. She was found to be afebrile, white count 13.8, creatinine 0.87. Lactic acid 2.3. Urine was cloudy with leukoesterase large and the PVCs 182. Blood culture, urine culture and wound culture were obtained in the emergency center. Patient states that her last hemoglobin A1c was 7.9 and would like to have it rechecked. She denies having any fever or chills, no loss of appetite. She complains of generalized achiness but no change. Patient was given 1 L of IV fluids in the emergency room and started on Rocephin and vancomycin and admitted to the [facility] floor. Dr. Riggins is planning for bedside debridement and wound care with [facility]. MRI of the left foot will be ordered to rule out osteomyelitis. Patient states she completed a course of antibiotics about one and a half weeks ago. She does not recall the name of the antibiotic. Review of Systems All systems: negative Constitutional: Denies chills, Denies fatigue, Denies fever, Denies lethargy, Denies malaise, Denies poor appetite, Denies weakness, Denies weight loss Eyes: denies blurred vision, denies pain Ears, nose, mouth and throat: Denies dental pain, Denies dysphagia, Denies headache, Denies mouth pain, Denies sore throat, Denies vertigo Cardiovascular: Reports dyspnea on exertion, Denies chest pain, Denies shortness of breath, Denies syncope Respiratory: Reports home oxygen, Denies cough, Denies cough with sputum, Denies dyspnea, Denies excessive sputum, Denies hemoptysis, Denies wheezing Gastrointestinal: Denies abdominal pain, Denies diarrhea, Denies loss of appetite, Denies melena, Denies nausea, Denies vomiting Genitourinary: Denies dysuria, Denies hematuria, Denies urgency, Denies urinary frequency Musculoskeletal: Reports myalgias (chronic), Denies frequent falls Integumentary: Reports wounds, Denies pruritus, Denies rash Neurological: Denies aphasia, Denies change in mentation, Denies change in speech, Denies confusion, Denies head injury, Denies headaches, Denies numbness, Denies seizures, Denies weakness Psychiatric: Denies anxiety, Denies depression Endocrine: Denies fatigue, Denies weight change Past Medical History Past Medical History: Diabetes Mellitus, Hyperlipidemia, Hypertension, Osteoart hritis (OA), Pneumonia, Vascular Disorder Additional Past Medical History / Comment(s): IDDM type II, neuropathy bilateral feet, current nonhealing L diabetic foot ulcer, past R lower leg ulcer, cellulitis bilateral lower legs, bronchitis, arthritis in multiple joints, PVD, poor vision bilaterally. History of Any Multi-Drug Resistant Organisms: None Reported Past Surgical History: Tonsillectomy Additional Past Surgical History / Comment(s): R foot 3rd toe amp, L foot 2nd/3rd toe amps, benign breast lumps removed, benign cysts removed from legs, bilateral cataract removals with lens implants. Past Anesthesia/Blood Transfusion Reactions: No Reported Reaction Additional Past Anesthesia/Blood Transfusion Reaction / Comm: clausterphobia Smoking Status: Former smoker Additional Past Alcohol Use History / Comment(s): Patient was a smoker 3 packs of cigarettes per day for 30 years and quit 30 years ago. She denies any marijuana, illicit drug use or alcohol use. She lives at home with her sister. There are 2 cats and 1 dog in the home. 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 She recently traveled to [place] and [facility] otherwise no significant travel history. She currently plays cards and is not able to perform other hobbies due to poor vision. - Past Family History Father Family Medical History: Myocardial Infarction ([place]) Additional Family Medical History / Comment(s): smoked Mother Family Medical History: CVA/TIA Additional Family Medical History / Comment(s): heart problems, schizophrenia Brother(s) Family Medical History: Cancer Additional Family Medical History / Comment(s): pancareatic cacner Medications and Allergies Home Medications Medication Instructions Recorded Confirmed Type RX: Clopidogrel [Plavix] 75 mg PO DAILY 05/02/18 11/06/18 History RX: Escitalopram [Lexapro] 20 mg PO DAILY 05/02/18 11/06/18 History RX: Gabapentin 800 mg PO BID 05/02/18 11/06/18 History RX: Hydrochlorothiazide 50 mg PO DAILY 05/02/18 11/06/18 History RX: Lovastatin [Mevacor] 20 mg PO DAILY 05/02/18 11/06/18 History RX: metFORMIN HCL 1,000 mg PO BID 05/02/18 11/06/18 History RX: Ibuprofen [Motrin Ib] 400 mg PO BID PRN 09/05/18 11/06/18 History RX: Ipratropium-Albuterol Nebulize 3 ml INHALATION RT-BID PRN 09/05/18 11/06/18 History [Duoneb 0.5 mg-3 mg/3 ml Soln] RX: Insulin NPH Hum/Reg Insulin Hm 70 unit SQ AC-BID #1 vial 09/10/18 11/06/18 Rx [NovoLIN 70-30 100 UNIT/ML VIAL] RX: Lisinopril [Zestril] 2.5 mg PO DAILY #30 tab 09/10/18 11/06/18 Rx RX: amLODIPine [Norvasc] 5 mg PO DAILY #30 tab 09/10/18 11/06/18 Rx Allergies Allergy/AdvReac Type Severity Reaction Status Date / Time adhesive tape Allergy Rash/Hives Verified 11/06/18 13:52 bacitracin Allergy Rash/Hives Verified 11/06/18 13:52 [From Neosporin ([id number])] miconazole Allergy Rash/Hives Verified 11/06/18 13:52 [From Neosporin AF] morphine Allergy Unknown Verified 11/06/18 13:52 neomycin Allergy Rash/Hives Verified 11/06/18 13:52 [From Neosporin ([id number])] Penicillins Allergy Unknown Verified 11/06/18 13:52 polymyxin B Allergy Rash/Hives Verified 11/06/18 13:52 [From Neosporin ([id number])] Sulfa (Sulfonamide Allergy Unknown Verified 11/06/18 13:52 Antibiotics) Physical Exam Vitals: Vital Signs Temp Pulse Pulse Resp BP BP Pulse Ox 11/07/18 07:30 20 11/07/18 05:40 98.4 F 76 20 111/71 95 11/06/18 20:51 97.9 F 83 18 151/63 92 L 11/06/18 16:30 20 11/06/18 16:23 97.8 F 90 18 143/65 96 11/06/18 15:41 98.3 F 88 18 129/61 97 11/06/18 14:22 85 18 129/61 93 L 11/06/18 12:43 98.6 F 90 18 131/55 92 L Intake and Output 11/06/18 11/07/18 11/07/18 22:59 06:59 14:59 Intake Total 480 360 Balance 480 360 Intake: Oral 480 360 Other: Voiding Method Toilet Toilet # Voids 1 2 Gen: This is a morbidly obese 73-year-old female. She has any on the edge of bed and appears to be comfortable and in no acute distress. HEENT: Head is atraumatic, normocephalic. Pupils equal, round. Sclerae is anicteric. Conjunctiva pink. Mucous members of the mouth are moist. Dentition is in poor order. No thrush noted. NECK: Supple. No JVD. No lymphadenopathy. No thyromegaly. LUNGS: Clear to auscultation. No wheezes or rhonchi. No intercostal retractions. HEART: Regular rate and rhythm. No murmur. ABDOMEN: Soft. Bowel sounds are present. No masses. No tenderness. EXTREMITIES: The bilateral lower extremity as patient has dark skin changes to the feet and two thirds of the lower extremity, onychomycosis bilaterally. Patient has had amputations of the second and third toes on the left and right third toe. There is an ulcer on the left proximal fifth metatarsal plantar surface with purulent drainage. Surrounding erythema and edema. NEUROLOGICAL: Patient is awake, alert and oriented x3. Cranial nerves 2 through 12 are grossly intact. Results Results: Laboratory Results WBC 10.3 k/uL (3.8-10.6) 11/07/18 08:01 RBC 5.16 m/uL (3.80-5.40) 11/07/18 08:01 Hgb 14.6 gm/dL (11.4-16.0) 11/07/18 08:01 Hct 46.8 % (34.0-46.0) H 11/07/18 08:01 MCV 90.8 fL (80.0-100.0) 11/07/18 08:01 MCH 28.3 pg (25.0-35.0) 11/07/18 08:01 MCHC 31.2 g/dL (31.0-37.0) 11/07/18 08:01 RDW 14.0 % (11.5-15.5) 11/07/18 08:01 Plt Count 276 k/uL (150-450) 11/07/18 08:01 Neutrophils % 67 % 11/07/18 08:01 Lymphocytes % 20 % 11/07/18 08:01 Monocytes % 9 % 11/07/18 08:01 Eosinophils % 2 % 11/07/18 08:01 Basophils % 1 % 11/07/18 08:01 Neutrophils # 6.9 k/uL (1.3-7.7) 11/07/18 08:01 Lymphocytes # 2.1 k/uL (1.0-4.8) 11/07/18 08:01 Monocytes # 0.9 k/uL (0-1.0) 11/07/18 08:01 Eosinophils # 0.2 k/uL (0-0.7) 11/07/18 08:01 Basophils # 0.1 k/uL (0-0.2) 11/07/18 08:01 PT 11.3 sec (9.0-12.0) 11/06/18 13:10 INR 1.1 (<1.2) 11/06/18 13:10 APTT 24.9 sec (22.0-30.0) 11/06/18 13:10 Sodium 138 mmol/L (137-145) 11/07/18 08:01 Potassium 4.5 mmol/L (3.5-5.1) 11/07/18 08:01 Chloride 100 mmol/L (98-107) 11/07/18 08:01 Carbon Dioxide 32 mmol/L (22-30) H 11/07/18 08:01 Anion Gap 6 mmol/L 11/07/18 08:01 BUN 26 mg/dL (7-17) H 11/07/18 08:01 Creatinine 0.86 mg/dL (0.52-1.04) 11/07/18 08:01 Est GFR (CKD-EPI)AfAm 79 (>60 ml/min/1.73 sqM) 11/07/18 08:01 Est GFR (CKD-EPI)NonAf 69 (>60 ml/min/1.73 sqM) 11/07/18 08:01 Glucose 139 mg/dL (74-99) H 11/07/18 08:01 POC Glucose (mg/dL) 119 mg/dL (75-99) H 11/07/18 06:[address] Production Manager ID Brenda Navarrete 11/07/18 06:54 Lactic Ac Sepsis Rflx Y 11/06/18 14:19 Plasma Lactic Acid Demian 2.2 mmol/L (0.7-2.0) H* 11/06/18 17:33 Calcium 8.4 mg/dL (8.4-10.2) 11/07/18 08:01 Phosphorus 2.5 mg/dL (2.5-4.5) 11/06/18 13:10 Magnesium 1.5 mg/dL (1.6-2.3) L 11/07/18 08:01 Total Bilirubin 1.2 mg/dL (0.2-1.3) 11/07/18 08:01 AST 25 U/L (14-36) 11/07/18 08:01 ALT 26 U/L (9-52) 11/07/18 08:01 Alkaline Phosphatase 79 U/L (38-126) 11/07/18 08:01 Troponin I <0.012 ng/mL (0.000-0.034) 11/06/18 13:10 Total Protein 6.4 g/dL (6.3-8.2) 11/07/18 08:01 Albumin 3.3 g/dL (3.5-5.0) L 11/07/18 08:01 Urine Color Yellow 11/06/18 22:40 Urine Appearance Cloudy (Clear) H 11/06/18 22:40 Urine pH 6.0 (5.0-8.0) 11/06/18 22:40 Ur Specific [place]ove 1.014 (1.001-1.035) 11/06/18 22:40 Urine Protein Negative (Negative) 11/06/18 22:40 Urine Glucose (UA) Negative (Negative) 11/06/18 22:40 Urine Ketones Negative (Negative) 11/06/18 22:40 Urine Blood Small (Negative) H 11/06/18 22:40 Urine Nitrite Negative (Negative) 11/06/18 22:40 Urine Bilirubin Negative (Negative) 11/06/18 22:40 Urine Urobilinogen <2.0 mg/dL (<2.0) 11/06/18 22:40 Ur Leukocyte Esterase Large (Negative) H 11/06/18 22:40 Urine RBC 3 /hpf (0-5) 11/06/18 22:40 Urine WBC >182 /hpf (0-5) H 11/06/18 22:40 Urine WBC Clumps Rare /hpf (None) H 11/06/18 22:40 Ur Squamous Epith Cells 2 /hpf (0-4) 11/06/18 22:40 CBC & Chem 7: 11/10/18 08:26 11/10/18 08:26 Labs: Abnormal Lab Results - Last 24 Hours (Table) 11/06/18 11/06/18 11/06/18 Range/Units 13:10 13:10 13:42 WBC 13.8 H (3.8-10.6) k/uL Hct 47.1 H (34.0-46.0) % Neutrophils # 9.5 H (1.3-7.7) k/uL Carbon Dioxide 31 H (22-30) mmol/L BUN 27 H (7-17) mg/dL Glucose 55 L (74-99) mg/dL POC Glucose (mg/dL) (75-99) mg/dL Plasma Lactic Acid Demian 2.3 H* (0.7-2.0) mmol/L Magnesium 1.2 L (1.6-2.3) mg/dL Albumin (3.5-5.0) g/dL Urine Appearance (Clear) Urine Blood (Negative) Ur Leukocyte Esterase (Negative) Urine WBC (0-5) /hpf Urine WBC Clumps (None) /hpf 11/06/18 11/06/18 11/06/18 Range/Units 16:57 17:15 17:33 WBC (3.8-10.6) k/uL Hct (34.0-46.0) % Neutrophils # (1.3-7.7) k/uL Carbon Dioxide (22-30) mmol/L BUN (7-17) mg/dL Glucose (74-99) mg/dL POC Glucose (mg/dL) 50 L 59 L (75-99) mg/dL Plasma Lactic Acid Demian 2.2 H* (0.7-2.0) mmol/L Magnesium (1.6-2.3) mg/dL Albumin (3.5-5.0) g/dL Urine Appearance (Clear) Urine Blood (Negative) Ur Leukocyte Esterase (Negative) Urine WBC (0-5) /hpf Urine WBC Clumps (None) /hpf 11/06/18 11/06/18 11/07/18 Range/Units 20:17 22:40 06:54 WBC (3.8-10.6) k/uL Hct (34.0-46.0) % Neutrophils # (1.3-7.7) k/uL Carbon Dioxide (22-30) mmol/L BUN (7-17) mg/dL Glucose (74-99) mg/dL POC Glucose (mg/dL) 119 H 119 H (75-99) mg/dL Plasma Lactic Acid Demian (0.7-2.0) mmol/L Magnesium (1.6-2.3) mg/dL Albumin (3.5-5.0) g/dL Urine Appearance Cloudy H (Clear) Urine Blood Small H (Negative) Ur Leukocyte Esterase Large H (Negative) Urine WBC >182 H (0-5) /hpf Urine WBC Clumps Rare H (None) /hpf 11/07/18 11/07/18 Range/Units 08:01 08:01 WBC (3.8-10.6) k/uL Hct 46.8 H (34.0-46.0) % Neutrophils # (1.3-7.7) k/uL Carbon Dioxide 32 H (22-30) mmol/L BUN 26 H (7-17) mg/dL Glucose 139 H (74-99) mg/dL POC Glucose (mg/dL) (75-99) mg/dL Plasma Lactic Acid Demian (0.7-2.0) mmol/L Magnesium 1.5 L (1.6-2.3) mg/dL Albumin 3.3 L (3.5-5.0) g/dL Urine Appearance (Clear) Urine Blood (Negative) Ur Leukocyte Esterase (Negative) Urine WBC (0-5) /hpf Urine WBC Clumps (None) /hpf Microbiology - Last 24 Hours (Table) 11/06/18 22:40 Urine Culture - Preliminary Urine,Clean Catch 11/06/18 13:42 Gram Stain - Preliminary Foot - Left Wound Culture - Preliminary Assessment and Plan Plan: This is a 73-year-old female who presents to hospital with an infected left diabetic foot ulcer this failed outpatient treatment. Patient is been seen by Dr. Riggins is scheduled for I&D this afternoon. Patient is currently on Rocephin and vancomycin. Invanz will be initiated. Blood, wound and urine cultures are in progress. Local wound care to be addressed by Dr. Riggins. MRI of the foot will be ordered to rule out osteomyelitis. Multivitamin ordered. Patient will require close glucose control and hemoglobin A1c is pending. Continue supportive care. Further recommendations as patient progresses. The above dictated assessment and findings were discussed with Dr. Jarquin. The impression and plan of care have been directed as dictated. Adilene Marcus nurse practitioner acting as scribe for Dr. Jarquin.
--- NOTE | 2018-11-07 10:45 | P.PN ---
Subjective Progress Note Date: 11/07/18 This is a 73-year-old female, patient of Dr. Fry. She has a known past medical history of diabetes mellitus, cellulitis, left diabetic foot ulcer, hypertension, hyperdynamic lipidemia, peripheral vascular disease with previous right and left toe amputations. Patient presents to the ER due to a left foot ulcer and cellulitis of the left leg. Patient follows up with podiatry she states that in August she had a procedure and possibly debridement to the left foot ulcer. The wound area has yet to close since then. She recently completed antibiotic treatment for the foot infection. She went to see her wrapper stemmer hand, Dr. Harvey today. Dr. Harvey referred her to come to the ER due to left foot ulcer with cellulitis and evidence of infection. It also was malodorous. Patient denies any fever, chills, sweats, nausea or vomiting, bowel movement changes or urinary symptoms. She does report pain with walking. The ulcer is on the left plantar aspect of the foot. It appears that there is some bone visible there is a follow odor. She's been started on vancomycin and Rocephin in the ER. White count elevated 13.8 lactic acid 2.3. Infectious disease has been consulted. X-ray showing soft tissue swelling 11/07/2018 patient is scheduled for MRI of the foot to rule out osteomyelitis. She's currently remains on Rocephin and vancomycin. Followed by infectious disease. Seen by Dr. Riggins this morning for an I&D. White count has normalized from 13.8-10.3. She is complaining of some pain in that foot. [place] has been ordered. Lactic acid has dropped from 2.3 to 2. 2 repeat lactic is p ending. Magnesium is being replaced. She does have evidence of a UTI on urinalysis, urine culture is pending. Patient denies any chest pain or shortness of breath. Denies any nausea or vomiting. Reports having bowel movements. Denies any difficulty urinating. Objective - Vital Signs Vital signs: Vital Signs Temp 98.2 F 11/07/18 09:15 Pulse 84 11/07/18 09:15 Resp 18 11/07/18 09:15 BP 137/65 11/07/18 09:15 Pulse Ox 95 11/07/18 05:40 Intake & Output 11/06/18 11/07/18 11/07/18 18:59 06:59 18:59 Intake Total 480 360 Balance 480 360 Weight 161.071 kg Intake: Oral 480 360 Other: Voiding Method Toilet Toilet # Voids 2 - Exam Head normocephalic Neck supple Lungs clear to auscultation bilaterally no wheezing or crackles Heart regular rate and rhythm S1-S2, no rub or gallop Abdomen is soft nontender nondistended positive bowel sounds no hepatosplenomegaly Extremities no edema. Left foot plantar aspect ulcer about 3 cm in height by 2 cm depth. The wound is deep possible visualization of bone. Follow odor and yellowish discharge. Yellowish skin noted around the open ulcer. Tender with palpation. Neuro alert and orientated to 3 - Labs CBC & Chem 7: 11/07/18 08:01 11/07/18 08:01 Labs: Abnormal Lab Results - Last 24 Hours (Table) 11/06/18 11/06/18 11/06/18 Range/Units 13:10 13:10 13:42 WBC 13.8 H (3.8-10.6) k/uL Hct 47.1 H (34.0-46.0) % Neutrophils # 9.5 H (1.3-7.7) k/uL Carbon Dioxide 31 H (22-30) mmol/L BUN 27 H (7-17) mg/dL Glucose 55 L (74-99) mg/dL POC Glucose (mg/dL) (75-99) mg/dL Plasma Lactic Acid Demian 2.3 H* (0.7-2.0) mmol/L Magnesium 1.2 L (1.6-2.3) mg/dL Albumin (3.5-5.0) g/dL Urine Appearance (Clear) Urine Blood (Negative) Ur Leukocyte Esterase (Negative) Urine WBC (0-5) /hpf Urine WBC Clumps (None) /hpf 11/06/18 11/06/18 11/06/18 Range/Units 16:57 17:15 17:33 WBC (3.8-10.6) k/uL Hct (34.0-46.0) % Neutrophils # (1.3-7.7) k/uL Carbon Dioxide (22-30) mmol/L BUN (7-17) mg/dL Glucose (74-99) mg/dL POC Glucose (mg/dL) 50 L 59 L (75-99) mg/dL Plasma Lactic Acid Demian 2.2 H* (0.7-2.0) mmol/L Magnesium (1.6-2.3) mg/dL Albumin (3.5-5.0) g/dL Urine Appearance (Clear) Urine Blood (Negative) Ur Leukocyte Esterase (Negative) Urine WBC (0-5) /hpf Urine WBC Clumps (None) /hpf 11/06/18 11/06/18 11/07/18 Range/Units 20:17 22:40 06:54 WBC (3.8-10.6) k/uL Hct (34.0-46.0) % Neutrophils # (1.3-7.7) k/uL Carbon Dioxide (22-30) mmol/L BUN (7-17) mg/dL Glucose (74-99) mg/dL POC Glucose (mg/dL) 119 H 119 H (75-99) mg/dL Plasma Lactic Acid Demian (0.7-2.0) mmol/L Magnesium (1.6-2.3) mg/dL Albumin (3.5-5.0) g/dL Urine Appearance Cloudy H (Clear) Urine Blood Small H (Negative) Ur Leukocyte Esterase Large H (Negative) Urine WBC >182 H (0-5) /hpf Urine WBC Clumps Rare H (None) /hpf 11/07/18 11/07/18 Range/Units 08:01 08:01 WBC (3.8-10.6) k/uL Hct 46.8 H (34.0-46.0) % Neutrophils # (1.3-7.7) k/uL Carbon Dioxide 32 H (22-30) mmol/L BUN 26 H (7-17) mg/dL Glucose 139 H (74-99) mg/dL POC Glucose (mg/dL) (75-99) mg/dL Plasma Lactic Acid Demian (0.7-2.0) mmol/L Magnesium 1.5 L (1.6-2.3) mg/dL Albumin 3.3 L (3.5-5.0) g/dL Urine Appearance (Clear) Urine Blood (Negative) Ur Leukocyte Esterase (Negative) Urine WBC (0-5) /hpf Urine WBC Clumps (None) /hpf Microbiology - Last 24 Hours (Table) 11/06/18 22:40 Urine Culture - Preliminary Urine,Clean Catch 11/06/18 13:42 Gram Stain - Preliminary Foot - Left Wound Culture - Preliminary Assessment and Plan Assessment: 1. Infected diabetic Left foot ulcer with cellulitis: Obtain wound culture and blood culture. Foot x-ray showing soft tissue swelling. Continue Rocephin and vancomycin. Followed by infectious disease and vascular surgery. Patient scheduled for a debridement today with Dr. Riggins. Also scheduled for MRI of the foot. Adding [place] for pain control 2. Hypomagnesemia : Magnesium remains low at 1.5. Will give another gram of magnesium sulfate 3. Diabetes mellitus type 2 patient is hypoglycemic in the ER with blood sugar 55. Hypoglycemia resolved. Continue with sliding-scale coverage. A1c pending. We'll hold patient's insulin and metformin. 4. History of peripheral vascular disease with prior toe amputation on both feet 5. Prior Hospitalization with bilateral lower extremity cellulitis in August 6. Peripheral neuropathy 7. Morbid obesity 8. Essential Hypertension 9. Chronic hypoxic respiratory failure. On 2 L of oxygen at home 10. history of COPD. Continue nebulizer treatments as needed 11. UTI: Continue Rocephin await urine culture DVT prophylaxis Lovenox and GI prophylaxis Pepcid I performed an examination of the patient and discussed their management with the physician Tannery Gummer. I have reviewed the Physician Tannery Gummer's notes and a gree with the documented findings and plan of care
--- NOTE | 2018-11-07 10:52 | CONS ---
CONSULTATION This is a 73-year-old white female with history of diabetes. Patient has history of obesity. The patient has infected callus plantar aspect of the left foot. She has been treated by supervisor sewing room. Patient came to the ER and admitted and I was consulted for further evaluation. MEDICAL HISTORY: The patient's medical history includes history of diabetes, hyperlipidemia, hypertension, and osteoarthritis, history of obesity. EXAMINATION: On examination, neck is supple. CHEST: Clear. Abdomen is protuberant. Posterior tibial, dorsal by the Doppler. The patient has cellulitis of the left lower extremity and infected callus plantar aspect of the left foot. PLAN: Debridement and deep culture. MMODL / IJN: [id number] /
[2018-11-07] MEDS ORDERED: MAGNESIUM SULFATE-D5W PMX 1 GM in DEXTROSE/WATER 1 100ML.BAG IVPB ONE (11:00)
[2018-11-07] MEDS: COLLAGENASE 250 UNIT/GM OINTMENT 30 GM TUBE TOPICAL SCH (11:22)
[2018-11-07 11:38] LABS: Glucose,Whole Blood 222 mg/dL (75-99)
[2018-11-07] MEDS: MULTIVITAMINS, THERA 1 EACH TAB PO SCH (11:40)
--- NOTE | 2018-11-07 12:04 | PCN ---
PROCEDURE NOTE PREOPERATIVE DIAGNOSIS: Infected callus left foot, plantar aspect. Measurement is 3 x 2 cm with minimal necrotic tissue at the base of the wound. PROCEDURE: Debridement of the wound down to subcutaneous tissue and fascia. This patient has history of chronic wound on the plantar aspect of the left foot under care of . Patient has been admitted. There is marked swelling and redness of the left lower extremity on the dorsum aspect of the foot and left lower extremity and infected wound on the plantar aspect of the foot which is tender on palpation. There was some necrotic tissue noted at the base of the wound. The left foot was prepped and draped in the sterile manner; 1% lidocaine plain infiltrated. Using a knife, we debrided down to subcu fat and down to the bone. All the necrotic tissue was removed. No active bleeding was noted. The wound was irrigated with saline. PLAN: We will use Santyl cream for the wound and Silvadene cream on the dorsum aspect of the foot and left lower extremity for cellulitis. Deep culture was taken. Patient is under care of Infectious Disease for long-term antibiotic. We also ordered an MRI of the foot to rule out osteo. The patient tolerated the procedure well. MMODL / IJN: [id number] /
--- NOTE | 2018-11-07 15:39 | MR ---
EXAMINATION TYPE: MR foot LT wo/w con DATE OF EXAM: 11/07/2018 COMPARISON: 11/06/2018 foot radiographs HISTORY: Diabetic ulcer lt foot/cellulitis, mid foot/lateral/dorsal TECHNIQUE/CONTRAST: Standard multiplanar, multisequence MRI departmental protocol utilizing 15 mL intravenous Gadavist ga dolinium contrast. FINDINGS: There is focal mild bone marrow edema in the base of the fifth metatarsal demonstrating subtle T1 foc al hypointensity on sagittal T1-weighted fat-sat image 6, STIR sagittal image 6 demonstrating STIR hy perintensity, and enhancement in this region on postcontrast T1 fat sat image 6. Deep to this there i s T1 hypointense and STIR hyperintense subcutaneous edema and foci of T1/T2 hypointense subcutaneous emphysema. Skin ulceration is also seen measuring 1.2 cm. Throughout the remainder of the hindfoot and midfoot there are extensive degenerative changes as ther e is opposing surface subchondral cyst formation of the tarsometatarsal joints and talonavicular join t. No other bone marrow replacing process is seen. No other evidence of bone marrow edema throughout the left foot. There is a small tibiotalar joint effusion. This joint effusion extends anteriorly. Gi leonila the diffuse subcutaneous edema evaluation of the ligaments and tendons are Limited although they appear grossly intact. IMPRESSION: 1. Finding of focal osteomyelitis of the base of the fifth metatarsal with 1.2 cm skin and soft tissu e ulceration of the plantar and lateral surface of the midfoot with foci of subcutaneous emphysema. 2. More diffuse subcutaneous edema is seen throughout the entirety of the foot but to a lesser degree . 3. Extensive arthropathy of the left hindfoot and midfoot.
[2018-11-07] MEDS: ERTAPENEM 1 GM in SODIUM CHLORIDE 0.9% 50 ML IVPB SCH (16:39)
[2018-11-07 17:36] LABS: Glucose,Whole Blood 212 mg/dL (75-99)
--- NOTE | 2018-11-07 18:01 | P.CON ---
Consult Note - . Consult date: 11/07/18 Assessment/Plan:: This is a 73-year-old female well-known to ID service with underlying history of super obesity, diabetes mellitus type 2, chronic left foot diabetic ulcer and severe peripheral vascular disease. Patient has had multiple inter ventions in the past for peripheral artery procedures with arthrectomy's. Patient has been recently following with her matting press tender Dr. Reyna for left foot ulcer beginning the end of August. She states that he opened an area in the office and she has been following with him every week but recently changed to Dr. Harvey. She states it has not been getting any better and her home care nurse on Saturday was quite concerned that there was more redness. She saw Dr. Harvey on and was told to come into [facility] for evaluation. She was found to be afebrile, white count 13.8, creatinine 0.87. Lactic acid 2.3. Urine was cloudy with leukoesterase large and the PVCs 182. Blood culture, urine culture and wound culture were obtained in the emergency center. Patient states that her last hemoglobin A1c was 7.9 and would like to have it rechecked. She denies having any fever or chills, no loss of appetite. She complains of generalized achiness but no change. Patient was given 1 L of IV fluids in the emergency room and started on Rocephin and vancomycin and admitted to the [facility] floor. Dr. Riggins is planning for bedside debridement and wound care with [facility]. MRI of the left foot will be ordered to rule out osteomyelitis. Patient states she completed a course of antibiotics about one and a half weeks ago. She does not recall the name of the antibiotic. Please see the consult note as dictated by nurse practitioner Dave Adilene Marcus. At this time the MRI is pending but the patient likely has underlying osteomyelitis given the nonhealing nature of the ulceration and her current level of infection. We'll start the discharge planners as home or outpatient IV antibiotic therapy. Gram-negative bacilli being seen and it is a diabetic foot ulceration currently polymicrobial infection is of concern and being she's had extensive prior treatment concern to drug-resistant pathogens. Invanz will be initiated 1 g IV piggyback daily, cultures and MRI will help further direct course of antibiotic therapy. Local wound care as reported been ordered by vascular surgery was Santyl which is inadequate choice to be done daily. We'll have to have arrangements for some type of offloading also made. If possible she be a candidate for total contact cast in the wound healing Center. I agree with evaluation, assessment and plan as dictated by nurse practitioner Mrs. Adilene Marcus.
[2018-11-07 19:38] LABS: Hemoglobin A1C 6.9 % (4.0-6.0)
[2018-11-07 20:13] LABS: Glucose,Whole Blood 248 mg/dL (75-99)
[2018-11-07] MEDS: HYDROcodone/APAP 5-325MG 1 EACH TAB PO PRN (22:06)
[2018-11-08 07:25] LABS: Glucose,Whole Blood 203 mg/dL (75-99)
[2018-11-08 07:25] LABS: Basophils # (A) 0.1 k/uL (0-0.2); Basophils % (A) 1 %; Eosinophils # (A) 0.2 k/uL (0-0.7); Eosinophils % (A) 2 %; HCT 43.2 % (34.0-46.0); HGB 13.4 gm/dL (11.4-16.0); Hypochromasia Slight; Lymphocytes # (A) 1.6 k/uL (1.0-4.8); Lymphocytes % (A) 16 %; MCH 28.6 pg (25.0-35.0); MCHC 31.1 g/dL (31.0-37.0); MCV 92.1 fL (80.0-100.0); Mean Platelet Volume 6.8; Monocytes # (A) 0.9 k/uL (0-1.0); Monocytes % (A) 9 %; Neutrophils # (A) 6.9 k/uL (1.3-7.7); Neutrophils % (A) 70 %; Platelet Count 241 k/uL (150-450); RBC 4.69 m/uL (3.80-5.40); WBC 9.9 k/uL (3.8-10.6)
[2018-11-08 07:49] LABS: ALT 26 U/L (9-52); AST 24 U/L (14-36); Alkaline Phosphatase 67 U/L (38-126); Anion Gap 6 mmol/L; Blood Urea Nitrogen 26 mg/dL (7-17); Calcium 8.2 mg/dL (8.4-10.2); Carbon Dioxide 28 mmol/L (22-30); Chloride 103 mmol/L (98-107); Glucose 208 mg/dL (74-99); Magnesium 1.8 mg/dL (1.6-2.3); Potassium 4.6 mmol/L (3.5-5.1); Sodium 137 mmol/L (137-145)
[2018-11-08] MEDS: INSULIN ASPART (NovoLOG) 100 UNIT/ML VIAL SQ SCH ×5 (07:54→21:03)
[2018-11-08] MEDS: ATORVASTATIN 10 MG TAB PO SCH (07:55)
[2018-11-08] MEDS: FAMOTIDINE 20 MG TAB PO SCH (07:55)
[2018-11-08] MEDS: GABAPENTIN 400 MG CAP PO SCH ×2 (07:55→20:49)
[2018-11-08] MEDS: amLODIPine 5 MG TAB PO SCH (07:55)
[2018-11-08] MEDS: CLOPIDOGREL 75 MG TAB PO SCH (07:55)
[2018-11-08] MEDS: ESCITALOPRAM 20 MG TAB PO SCH (07:56)
[2018-11-08] MEDS: HYDROCHLOROTHIAZIDE 50 MG TAB PO SCH (07:56)
[2018-11-08] MEDS: ENOXAPARIN 40 MG/0.4 ML SYRINGE SQ SCH (07:56)
[2018-11-08] MEDS: LISINOPRIL 2.5 MG TAB PO SCH (07:56)
[2018-11-08] MEDS: ERTAPENEM 1 GM in SODIUM CHLORIDE 0.9% 50 ML IVPB SCH (07:57)
[2018-11-08 11:35] LABS: Glucose,Whole Blood 283 mg/dL (75-99)
[2018-11-08] MEDS: MULTIVITAMINS, THERA 1 EACH TAB PO SCH (12:34)
--- NOTE | 2018-11-08 13:58 | P.PN ---
Subjective Progress Note Date: 11/08/18 This is a 73-year-old female, patient of Dr. Fry. She has a known past medical history of diabetes mellitus, cellulitis, left diabetic foot ulcer, hypertension, hyperdynamic lipidemia, peripheral vascular disease with previous right and left toe amputations. Patient presents to the ER due to a left foot ulcer and cellulitis of the left leg. Patient follows up with podiatry she states that in August she had a procedure and possibly debridement to the left foot ulcer. The wound area has yet to close since then. She recently completed antibiotic treatment for the foot infection. She went to see her community health worker, Dr. Harvey today. Dr. Harvey referred her to come to the ER due to left foot ulcer with cellulitis and evidence of infection. It also was malodorous. Patient denies any fever, chills, sweats, nausea or vomiting, bowel movement changes or urinary symptoms. She does report pain with walking. The ulcer is on the left plantar aspect of the foot. It appears that there is some bone visible there is a follow odor. She's been started on vancomycin and Rocephin in the ER. White count elevated 13.8 lactic acid 2.3. Infectious disease has been consulted. X-ray showing soft tissue swelling 11/07/2018 patient is scheduled for MRI of the foot to rule out osteomyelitis. She's currently remains on Rocephin and vancomycin. Followed by infectious disease. Seen by Dr. Riggins this morning for an I&D. White count has normalized from 13.8-10.3. She is complaining of some pain in that foot. [place] has been ordered. Lactic acid has dropped from 2.3 to 2. 2 repeat lactic is p ending. Magnesium is being replaced. She does have evidence of a UTI on urinalysis, urine culture is pending. Patient denies any chest pain or shortness of breath. Denies any nausea or vomiting. Reports having bowel movements. Denies any difficulty urinating. On 11/08/2018 patient was seen and examined on the medical floor she is alert and oriented 3 in no apparent distress she is complaining of some discomfort in her foot otherwise she denies any complaints there is no fever or chills no headache or dizziness no chest pain no shortness of breath no cough no nausea or vomiting no abdominal pain no diarrhea and no urinary symptoms. Objective - Vital Signs Vital signs: Vital Signs Temp 98.3 F 11/08/18 11:54 Pulse 84 11/08/18 11:54 Resp 18 11/08/18 11:54 BP 154/69 11/08/18 11:54 Pulse Ox 90 L 11/08/18 11:54 Intake & Output 11/07/18 11/08/18 11/08/18 18:59 06:59 18:59 Intake Total 840 590 360 Balance 840 590 360 Weight 161.071 kg Intake: Oral 840 590 360 Other: Voiding Method Toilet # Voids 2 2 # Bowel Movements 0 - Exam Head normocephalic Neck supple Lungs clear to auscultation bilaterally no wheezing or crackles Heart regular rate and rhythm S1-S2, no rub or gallop Abdomen is soft nontender nondistended positive bowel sounds no hepatosplenomegaly Extremities no edema. Left foot plantar aspect ulcer about 3 cm in height by 2 cm depth. The wound is deep possible visualization of bone. Follow odor and yellowish discharge. Yellowish skin noted around the open ulcer. Tender with palpation. Neuro alert and orientated to 3 - Labs CBC & Chem 7: 11/08/18 06:50 11/08/18 06:50 Labs: Abnormal Lab Results - Last 24 Hours (Table) 11/07/18 11/07/18 11/07/18 Range/Units 08:01 17:06 20:11 BUN (7-17) mg/dL Glucose (74-99) mg/dL POC Glucose (mg/dL) 212 H 248 H (75-99) mg/dL Hemoglobin A1c 6.9 H (4.0-6.0) % Calcium (8.4-10.2) mg/dL Total Protein (6.3-8.2) g/dL Albumin (3.5-5.0) g/dL 11/08/18 11/08/18 11/08/18 Range/Units 06:50 07:19 11:30 BUN 26 H (7-17) mg/dL Glucose 208 H (74-99) mg/dL POC Glucose (mg/dL) 203 H 283 H (75-99) mg/dL Hemoglobin A1c (4.0-6.0) % Calcium 8.2 L (8.4-10.2) mg/dL Total Protein 6.0 L (6.3-8.2) g/dL Albumin 3.0 L (3.5-5.0) g/dL Microbiology - Last 24 Hours (Table) 11/06/18 13:42 Gram Stain - Final Foot - Left Wound Culture - Final Enterobacter cloacae 11/07/18 10:11 Gram Stain - Preliminary Foot - Left Wound Culture - Preliminary Gram Neg Bacilli 11/06/18 22:40 Urine Culture - Final Urine,Clean Catch 11/07/18 10:11 Anaerobic Culture - Preliminary Foot - Left 11/06/18 13:42 Blood Culture - Preliminary Blood No Growth after 24 hours Assessment and Plan Plan: 1. Infected diabetic Left foot ulcer with cellulitis: Obtain wound culture and blood culture. Foot x-ray showing soft tissue swelling. Patient was seen by Dr. Jarquin antibiotics were changed to Invanz and vancomycin. Followed by infectious disease and vascular surgery. Patient scheduled for a debridement today with Dr. Riggins. Also scheduled for MRI of the foot. Adding [place] for pain control 2. Sepsis as evidenced by leukocytosis and elevated lactic acid on admission, sepsis is related to severe infection of the left foot. 3. Diabetes mellitus type 2 patient is hypoglycemic in the ER with blood sugar 55. Hypoglycemia resolved. Continue with sliding-scale coverage. A1c pending. We'll hold patient's insulin and metformin. 4. History of peripheral vascular disease with prior toe amputation on both feet 5. Prior Hospitalization with bilateral lower extremity cellulitis in August 6. Peripheral neuropathy 7. Morbid obesity 8. Essential Hypertension 9. Chronic hypoxic respiratory failure. On 2 L of oxygen at home 10. history of COPD. Continue nebulizer treatments as needed 11. UTI: Continue Invanz await urine culture 12. Hypomagnesemia correcting DVT prophylaxis Lovenox and GI prophylaxis Pepcid
[2018-11-08 17:05] LABS: Glucose,Whole Blood 228 mg/dL (75-99)
[2018-11-08] MEDS: VANCOMYCIN 2,250 MG in SODIUM CHLORIDE 0.9% 500 ML 500 ML IVPB SCH (17:40)
[2018-11-08] MEDS: COLLAGENASE 250 UNIT/GM OINTMENT 30 GM TUBE TOPICAL SCH (17:47)
[2018-11-08] MEDS: INSULN ASP PRT/INSULIN ASPART 100 UNIT/ML 10 ML VIAL SQ SCH (17:50)
[2018-11-08 19:57] LABS: Glucose,Whole Blood 159 mg/dL (75-99)
[2018-11-09 02:04] LABS: Glucose,Whole Blood 83 mg/dL (75-99)
[2018-11-09] MEDS: VANCOMYCIN 2,250 MG in SODIUM CHLORIDE 0.9% 500 ML 500 ML IVPB SCH ×2 (05:44→21:38)
[2018-11-09 07:14] LABS: Glucose,Whole Blood 119 mg/dL (75-99)
[2018-11-09] MEDS: INSULIN ASPART (NovoLOG) 100 UNIT/ML VIAL SQ SCH ×4 (07:30→20:28)
[2018-11-09 07:37] LABS: Basophils # (A) 0.1 k/uL (0-0.2); Basophils % (A) 1 %; Eosinophils # (A) 0.3 k/uL (0-0.7); Eosinophils % (A) 3 %; HCT 44.2 % (34.0-46.0); HGB 13.4 gm/dL (11.4-16.0); Lymphocytes # (A) 1.8 k/uL (1.0-4.8); Lymphocytes % (A) 21 %; MCH 27.8 pg (25.0-35.0); MCHC 30.3 g/dL (31.0-37.0); MCV 91.6 fL (80.0-100.0); Mean Platelet Volume 7.2; Monocytes # (A) 0.7 k/uL (0-1.0); Monocytes % (A) 8 %; Neutrophils # (A) 5.8 k/uL (1.3-7.7); Neutrophils % (A) 66 %; Platelet Count 238 k/uL (150-450); RBC 4.83 m/uL (3.80-5.40); RDW 13.9 % (11.5-15.5); WBC 8.8 k/uL (3.8-10.6)
[2018-11-09] MEDS: INSULN ASP PRT/INSULIN ASPART 100 UNIT/ML 10 ML VIAL SQ SCH ×2 (07:48→17:32)
[2018-11-09] MEDS: LISINOPRIL 2.5 MG TAB PO SCH (07:49)
[2018-11-09] MEDS: GABAPENTIN 400 MG CAP PO SCH ×2 (07:49→20:28)
[2018-11-09] MEDS: ATORVASTATIN 10 MG TAB PO SCH (07:49)
[2018-11-09] MEDS: CLOPIDOGREL 75 MG TAB PO SCH (07:49)
[2018-11-09] MEDS: MULTIVITAMINS, THERA 1 EACH TAB PO SCH (07:49)
[2018-11-09] MEDS: amLODIPine 5 MG TAB PO SCH (07:49)
[2018-11-09] MEDS: FAMOTIDINE 20 MG TAB PO SCH (07:49)
[2018-11-09] MEDS: ESCITALOPRAM 20 MG TAB PO SCH (07:50)
[2018-11-09] MEDS: ENOXAPARIN 40 MG/0.4 ML SYRINGE SQ SCH (07:50)
[2018-11-09] MEDS: HYDROCHLOROTHIAZIDE 50 MG TAB PO SCH (07:51)
[2018-11-09 07:54] LABS: ALT 28 U/L (9-52); AST 27 U/L (14-36); Albumin 3.2 g/dL (3.5-5.0); Alkaline Phosphatase 76 U/L (38-126); Anion Gap 4 mmol/L; Blood Urea Nitrogen 23 mg/dL (7-17); Calcium 8.2 mg/dL (8.4-10.2); Carbon Dioxide 32 mmol/L (22-30); Chloride 103 mmol/L (98-107); Glucose 119 mg/dL (74-99); Magnesium 1.9 mg/dL (1.6-2.3); Potassium 4.3 mmol/L (3.5-5.1); Sodium 139 mmol/L (137-145); Total Bilirubin 0.9 mg/dL (0.2-1.3); Total Protein 6.3 g/dL (6.3-8.2)
[2018-11-09] MEDS: ERTAPENEM 1 GM in SODIUM CHLORIDE 0.9% 50 ML IVPB SCH (09:35)
--- NOTE | 2018-11-09 10:39 | PN ---
PROGRESS NOTE ADDENDUM: Dr. Crum, cosmetology instructor. MMHORACEL / TEMITOPEN: [id number] /
[2018-11-09] MEDS: IBUPROFEN 200 MG TAB PO PRN (12:26)
[2018-11-09 12:45] LABS: Glucose,Whole Blood 68 mg/dL (75-99)
[2018-11-09 13:00] LABS: Glucose,Whole Blood 84 mg/dL (75-99)
[2018-11-09] MEDS: COLLAGENASE 250 UNIT/GM OINTMENT 30 GM TUBE TOPICAL SCH (14:28)
--- NOTE | 2018-11-09 15:35 | P.PN ---
Subjective Progress Note Date: 11/09/18 This is a 73-year-old female, patient of Dr. Fry. She has a known past medical history of diabetes mellitus, cellulitis, left diabetic foot ulcer, hypertension, hyperdynamic lipidemia, peripheral vascular disease with previous right and left toe amputations. Patient presents to the ER due to a left foot ulcer and cellulitis of the left leg. Patient follows up with podiatry she states that in August she had a procedure and possibly debridement to the left foot ulcer. The wound area has yet to close since then. She recently completed antibiotic treatment for the foot infection. She went to see her semiconductor wafer inspector, Dr. Harvey today. Dr. Harvey referred her to come to the ER due to left foot ulcer with cellulitis and evidence of infection. It also was malodorous. Patient denies any fever, chills, sweats, nausea or vomiting, bowel movement changes or urinary symptoms. She does report pain with walking. The ulcer is on the left plantar aspect of the foot. It appears that there is some bone visible there is a follow odor. She's been started on vancomycin and Rocephin in the ER. White count elevated 13.8 lactic acid 2.3. Infectious disease has been consulted. X-ray showing soft tissue swelling 11/07/2018 patient is scheduled for MRI of the foot to rule out osteomyelitis. She's currently remains on Rocephin and vancomycin. Followed by infectious disease. Seen by Dr. Riggins this morning for an I&D. White count has normalized from 13.8-10.3. She is complaining of some pain in that foot. [place] has been ordered. Lactic acid has dropped from 2.3 to 2. 2 repeat lactic is p ending. Magnesium is being replaced. She does have evidence of a UTI on urinalysis, urine culture is pending. Patient denies any chest pain or shortness of breath. Denies any nausea or vomiting. Reports having bowel movements. Denies any difficulty urinating. On 11/08/2018 patient was seen and examined on the medical floor she is alert and oriented 3 in no apparent distress she is complaining of some discomfort in her foot otherwise she denies any complaints there is no fever or chills no headache or dizziness no chest pain no shortness of breath no cough no nausea or vomiting no abdominal pain no diarrhea and no urinary symptoms. On 11/09/2018 patient was seen and examined on the medical floor she is complaining of some discomfort in her foot otherwise she denies any complaints there is no fever or chills no headache or dizziness no chest pain no shortness of breath no cough no nausea or vomiting no abdominal pain no diarrhea and no urinary symptoms. Glucose is much better controlled at this time, Objective - Vital Signs Vital signs: Vital Signs Temp 97.7 F 11/09/18 12:50 Pulse 72 11/09/18 12:50 Resp 18 11/09/18 12:50 BP 143/73 11/09/18 12:50 Pulse Ox 92 L 11/09/18 12:50 Intake & Output 11/08/18 11/09/18 11/09/18 18:59 06:59 18:59 Intake Total 1490 360 Balance 1490 360 Intake: Intake, IV Titration 50 Amount Ertapenem 1 gm In Sodium 50 Chloride 0.9% 50 ml @ 100 mls/hr IVPB DAILY [facility] Rx #:[id number] Oral 1440 360 Other: Voiding Method Toilet Toilet # Voids 3 3 2 - Exam Head normocephalic Neck supple Lungs clear to auscultation bilaterally no wheezing or crackles Heart regular rate and rhythm S1-S2, no rub or gallop Abdomen is soft nontender nondistended positive bowel sounds no hepatosplenomegaly Extremities no edema. Left foot plantar aspect ulcer about 3 cm in height by 2 cm depth. The wound is deep possible visualization of bone. Follow odor and yellowish discharge. Yellowish skin noted around the open ulcer. Tender with palpation. Neuro alert and orientated to 3 - Labs CBC & Chem 7: 11/09/18 07:15 11/09/18 07:15 Labs: Abnormal Lab Results - Last 24 Hours (Table) 11/08/18 11/08/18 11/09/18 Range/Units 17:03 19:55 07:13 MCHC (31.0-37.0) g/dL Carbon Dioxide (22-30) mmol/L BUN (7-17) mg/dL Glucose (74-99) mg/dL POC Glucose (mg/dL) 228 H 159 H 119 H (75-99) mg/dL Calcium (8.4-10.2) mg/dL Albumin (3.5-5.0) g/dL 11/09/18 11/09/18 11/09/18 Range/Units 07:15 07:15 12:43 MCHC 30.3 L (31.0-37.0) g/dL Carbon Dioxide 32 H (22-30) mmol/L BUN 23 H (7-17) mg/dL Glucose 119 H (74-99) mg/dL POC Glucose (mg/dL) 68 L (75-99) mg/dL Calcium 8.2 L (8.4-10.2) mg/dL Albumin 3.2 L (3.5-5.0) g/dL Microbiology - Last 24 Hours (Table) 11/07/18 10:11 Gram Stain - Final Foot - Left Wound Culture - Final Enterobacter cloacae 11/06/18 13:42 Blood Culture - Preliminary Blood No Growth after 48 hours 11/06/18 13:42 Gram Stain - Final Foot - Left Wound Culture - Final Enterobacter cloacae Assessment and Plan Plan: 1. Infected diabetic Left foot ulcer with cellulitis: Obtain wound culture and blood culture. Foot x-ray showing soft tissue swelling. Patient was seen by Dr. Jarquin antibiotics were changed to Invanz and vancomycin. Followed by infectious disease and vascular surgery. Patient scheduled for a debridement today with Dr. Riggins. Also scheduled for MRI of the foot. Adding [place] for pain control 2. Sepsis as evidenced by leukocytosis and elevated lactic acid on admission, sepsis is related to severe infection of the left foot. 3. Diabetes mellitus type 2 patient is hypoglycemic in the ER with blood sugar 55. Hypoglycemia resolved. Continue with sliding-scale coverage. A1c pending. Home dose of Insulin resume intercourse much better controled 4. History of peripheral vascular disease with prior toe amputation on both feet 5. Prior Hospitalization with bilateral lower extremity cellulitis in August 6. Peripheral neuropathy 7. Morbid obesity 8. Essential Hypertension 9. Chronic hypoxic respiratory failure. On 2 L of oxygen at home 10. history of COPD. Continue nebulizer treatments as needed 11. UTI: Continue Invanz await urine culture 12. Hypomagnesemia correcting DVT prophylaxis Lovenox and GI prophylaxis Pepcid
[2018-11-09 17:19] LABS: Glucose,Whole Blood 130 mg/dL (75-99)
[2018-11-09 20:02] LABS: Glucose,Whole Blood 131 mg/dL (75-99)
[2018-11-09] MEDS ORDERED: VANCOMYCIN TROUGH DUE 1 EACH MISC MISCELLANE ONE (21:00)
[2018-11-09] MEDS: HYDROcodone/APAP 5-325MG 1 EACH TAB PO PRN (21:38)
[2018-11-10 06:47] LABS: Glucose,Whole Blood 77 mg/dL (75-99)
[2018-11-10] MEDS: INSULIN ASPART (NovoLOG) 100 UNIT/ML VIAL SQ SCH ×4 (08:54→21:56)
[2018-11-10] MEDS: FAMOTIDINE 20 MG TAB PO SCH (08:55)
[2018-11-10] MEDS: ATORVASTATIN 10 MG TAB PO SCH (08:55)
[2018-11-10] MEDS: amLODIPine 5 MG TAB PO SCH (08:55)
[2018-11-10] MEDS: LISINOPRIL 2.5 MG TAB PO SCH (08:55)
[2018-11-10] MEDS: ESCITALOPRAM 20 MG TAB PO SCH (08:55)
[2018-11-10] MEDS: CLOPIDOGREL 75 MG TAB PO SCH (08:55)
[2018-11-10] MEDS: HYDROCHLOROTHIAZIDE 50 MG TAB PO SCH (08:56)
[2018-11-10] MEDS: ENOXAPARIN 40 MG/0.4 ML SYRINGE SQ SCH (08:56)
[2018-11-10] MEDS: GABAPENTIN 400 MG CAP PO SCH ×2 (08:58→20:02)
[2018-11-10 09:22] LABS: ALT 40 U/L (9-52); AST 36 U/L (14-36); Albumin 3.3 g/dL (3.5-5.0); Alkaline Phosphatase 88 U/L (38-126); Anion Gap 5 mmol/L; Blood Urea Nitrogen 21 mg/dL (7-17); Calcium 8.6 mg/dL (8.4-10.2); Carbon Dioxide 30 mmol/L (22-30); Chloride 104 mmol/L (98-107); Glucose 87 mg/dL (74-99); Magnesium 1.9 mg/dL (1.6-2.3); Sodium 139 mmol/L (137-145); Total Bilirubin 0.8 mg/dL (0.2-1.3); Total Protein 6.7 g/dL (6.3-8.2)
[2018-11-10] MEDS: ERTAPENEM 1 GM in SODIUM CHLORIDE 0.9% 50 ML IVPB SCH (09:36)
[2018-11-10 09:39] LABS: Basophils # (A) 0.1 k/uL (0-0.2); Basophils % (A) 1 %; Eosinophils # (A) 0.4 k/uL (0-0.7); Eosinophils % (A) 4 %; HCT 46.5 % (34.0-46.0); HGB 14.4 gm/dL (11.4-16.0); Hypochromasia Moderate; Lymphocytes # (A) 2.2 k/uL (1.0-4.8); Lymphocytes % (A) 23 %; MCH 28.7 pg (25.0-35.0); MCHC 30.9 g/dL (31.0-37.0); MCV 92.8 fL (80.0-100.0); Monocytes # (A) 0.7 k/uL (0-1.0); Monocytes % (A) 8 %; Neutrophils # (A) 5.8 k/uL (1.3-7.7); Neutrophils % (A) 62 %; Platelet Count 249 k/uL (150-450); RBC 5.01 m/uL (3.80-5.40); RDW 13.9 % (11.5-15.5); WBC 9.3 k/uL (3.8-10.6)
[2018-11-10] MEDS: COLLAGENASE 250 UNIT/GM OINTMENT 30 GM TUBE TOPICAL SCH (09:39)
[2018-11-10] MEDS: INSULN ASP PRT/INSULIN ASPART 100 UNIT/ML 10 ML VIAL SQ SCH ×2 (09:42→17:30)
[2018-11-10 12:26] LABS: Glucose,Whole Blood 103 mg/dL (75-99)
[2018-11-10] MEDS: SILVER sulfADIAZINE Cream 400 GM 1 APPLIC APPLIC TOPICAL SCH (12:30)
[2018-11-10] MEDS: MULTIVITAMINS, THERA 1 EACH TAB PO SCH (13:05)
--- NOTE | 2018-11-10 13:30 | P.PN ---
Subjective Progress Note Date: 11/10/18 This is a 73-year-old female, patient of Dr. Fry. She has a known past medical history of diabetes mellitus, cellulitis, left diabetic foot ulcer, hypertension, hyperdynamic lipidemia, peripheral vascular disease with previous right and left toe amputations. Patient presents to the ER due to a left foot ulcer and cellulitis of the left leg. Patient follows up with podiatry she states that in August she had a procedure and possibly debridement to the left foot ulcer. The wound area has yet to close since then. She recently completed antibiotic treatment for the foot infection. She went to see her kickboxing instructor, Dr. Harvey today. Dr. Harvey referred her to come to the ER due to left foot ulcer with cellulitis and evidence of infection. It also was malodorous. Patient denies any fever, chills, sweats, nausea or vomiting, bowel movement changes or urinary symptoms. She does report pain with walking. The ulcer is on the left plantar aspect of the foot. It appears that there is some bone visible there is a follow odor. She's been started on vancomycin and Rocephin in the ER. White count elevated 13.8 lactic acid 2.3. Infectious disease has been consulted. X-ray showing soft tissue swelling 11/07/2018 patient is scheduled for MRI of the foot to rule out osteomyelitis. She's currently remains on Rocephin and vancomycin. Followed by infectious disease. Seen by Dr. Riggins this morning for an I&D. White count has normalized from 13.8-10.3. She is complaining of some pain in that foot. [place] has been ordered. Lactic acid has dropped from 2.3 to 2. 2 repeat lactic is p ending. Magnesium is being replaced. She does have evidence of a UTI on urinalysis, urine culture is pending. Patient denies any chest pain or shortness of breath. Denies any nausea or vomiting. Reports having bowel movements. Denies any difficulty urinating. On 11/08/2018 patient was seen and examined on the medical floor she is alert and oriented 3 in no apparent distress she is complaining of some discomfort in her foot otherwise she denies any complaints there is no fever or chills no headache or dizziness no chest pain no shortness of breath no cough no nausea or vomiting no abdominal pain no diarrhea and no urinary symptoms. On 11/09/2018 patient was seen and examined on the medical floor she is complaining of some discomfort in her foot otherwise she denies any complaints there is no fever or chills no headache or dizziness no chest pain no shortness of breath no cough no nausea or vomiting no abdominal pain no diarrhea and no urinary symptoms. Glucose is much better controlled at this time, 11/10/2018 patient lying in bed comfortably. No complaints of pain. Patient currently on IV Invanz. Awaiting final culture results. Wound culture growing Enterobacter cloacae and anaerobic is gram-negative bacilli. Urine culture is negative. Patient denies any chest pain or shortness of breath. Denies any nausea or vomiting. Denies any bowel movement changes or urinary symptoms. Objective - Vital Signs Vital signs: Vital Signs Temp 98.1 F 11/10/18 05:00 Pulse 89 11/10/18 05:00 Resp 20 11/10/18 05:00 BP 147/77 11/10/18 05:00 Pulse Ox 95 11/10/18 05:00 Intake & Output 11/09/18 11/10/18 11/10/18 18:59 06:59 18:59 Intake Total 720 Balance 720 Intake: Oral 720 Other: Voiding Method Toilet # Voids 2 2 - Exam Head normocephalic Neck supple Lungs clear to auscultation bilaterally no wheezing or crackles Heart regular rate and rhythm S1-S2, no rub or gallop Abdomen is soft nontender nondistended positive bowel sounds no hepatosplenomegaly Extremities no edema. Left foot wrapped in Kerlix and Adrian wrap Neuro alert and orientated to 3 - Labs CBC & Chem 7: 11/10/18 08:26 11/10/18 08:26 Labs: Abnormal Lab Results - Last 24 Hours (Table) 11/09/18 11/09/18 11/10/18 Range/Units 17:18 20:00 08:26 Hct 46.5 H (34.0-46.0) % MCHC 30.9 L (31.0-37.0) g/dL BUN (7-17) mg/dL POC Glucose (mg/dL) 130 H 131 H (75-99) mg/dL Albumin (3.5-5.0) g/dL 11/10/18 11/10/18 Range/Units 08:26 12:19 Hct (34.0-46.0) % MCHC (31.0-37.0) g/dL BUN 21 H (7-17) mg/dL POC Glucose (mg/dL) 103 H (75-99) mg/dL Albumin 3.3 L (3.5-5.0) g/dL Microbiology - Last 24 Hours (Table) 11/07/18 10:11 Anaerobic Culture - Final Foot - Left Anaerobic Gm Negative Bacilli Anaerobic Gm Negative Bacilli#2 11/06/18 13:42 Blood Culture - Preliminary Blood No Growth after 72 hours 11/07/18 10:11 Gram Stain - Final Foot - Left Wound Culture - Final Enterobacter cloacae Assessment and Plan Assessment: 1. Infected diabetic Left foot ulcer with cellulitis and osteomyelitis the base of the fifth metatarsal noted on MRI also noted soft tissue ulceration of the plantar and lateral surface of the mid foot with foci of subcutaneous emphysema. Awaiting wound cultures to finalize. Patient is currently on IV Invanz and vancomycin. Dr. Jarquin and Dr. Riggins are following. 2. Hypomagnesemia : Repeat Magnesium 1.9 3. Diabetes mellitus type 2 patient is hypoglycemic in the ER with blood sugar 55. Hypoglycemia resolved. A1c 6.9. Continue with sliding scale coverage 4. History of peripheral vascular disease with prior toe amputation on both feet 5. Prior Hospitalization with bilateral lower extremity cellulitis in August 6. Peripheral neuropathy 7. Morbid obesity 8. Essential Hypertension 9. Chronic hypoxic respiratory failure. On 2 L of oxygen at home 10. history of COPD. Continue nebulizer treatments as needed 11. UTI: Urine culture negative DVT prophylaxis Lovenox and GI prophylaxis Pepcid I performed an examination of the patient and discussed their management with the physician Management Internship. I have reviewed the Physician Management Internship's notes and agree with the documented findings and plan of care
[2018-11-10] MEDS: VANCOMYCIN 2,000 MG in SODIUM CHLORIDE 0.9% 500 ML 500 ML IVPB SCH (14:24)
[2018-11-10 17:28] LABS: Glucose,Whole Blood 177 mg/dL (75-99)
[2018-11-10] MEDS ORDERED: VANCOMYCIN 2,250 MG in SODIUM CHLORIDE 0.9% 500 ML 500 ML IVPB SCH (21:00)
[2018-11-10 21:54] LABS: Glucose,Whole Blood 87 mg/dL (75-99)
[2018-11-11] MEDS: VANCOMYCIN 2,000 MG in SODIUM CHLORIDE 0.9% 500 ML 500 ML IVPB SCH ×2 (05:42→20:37)
[2018-11-11 07:30] LABS: Glucose,Whole Blood 92 mg/dL (75-99)
[2018-11-11] MEDS: INSULIN ASPART (NovoLOG) 100 UNIT/ML VIAL SQ SCH ×4 (08:07→20:37)
[2018-11-11] MEDS: CLOPIDOGREL 75 MG TAB PO SCH (08:14)
[2018-11-11] MEDS: FAMOTIDINE 20 MG TAB PO SCH (08:14)
[2018-11-11] MEDS: ERTAPENEM 1 GM in SODIUM CHLORIDE 0.9% 50 ML IVPB SCH (08:14)
[2018-11-11] MEDS: ESCITALOPRAM 20 MG TAB PO SCH (08:14)
[2018-11-11] MEDS: INSULN ASP PRT/INSULIN ASPART 100 UNIT/ML 10 ML VIAL SQ SCH ×2 (08:14→17:31)
[2018-11-11] MEDS: ENOXAPARIN 40 MG/0.4 ML SYRINGE SQ SCH (08:14)
[2018-11-11] MEDS: amLODIPine 5 MG TAB PO SCH (08:14)
[2018-11-11] MEDS: LISINOPRIL 2.5 MG TAB PO SCH (08:14)
[2018-11-11] MEDS: ATORVASTATIN 10 MG TAB PO SCH (08:14)
[2018-11-11] MEDS: HYDROCHLOROTHIAZIDE 50 MG TAB PO SCH (08:15)
[2018-11-11] MEDS: GABAPENTIN 400 MG CAP PO SCH ×2 (08:17→20:36)
[2018-11-11 08:53] LABS: Basophils # (A) 0.1 k/uL (0-0.2); Basophils % (A) 1 %; Eosinophils # (A) 0.3 k/uL (0-0.7); Eosinophils % (A) 3 %; HCT 44.5 % (34.0-46.0); HGB 13.8 gm/dL (11.4-16.0); Hypochromasia Slight; Lymphocytes % (A) 21 %; MCH 28.1 pg (25.0-35.0); MCV 90.8 fL (80.0-100.0); Mean Platelet Volume 7.1; Monocytes # (A) 0.8 k/uL (0-1.0); Monocytes % (A) 9 %; Neutrophils # (A) 6.2 k/uL (1.3-7.7); Neutrophils % (A) 65 %; Platelet Count 273 k/uL (150-450); RDW 14.1 % (11.5-15.5); WBC 9.6 k/uL (3.8-10.6)
[2018-11-11 09:22] LABS: ALT 32 U/L (9-52); AST 36 U/L (14-36); Albumin 3.2 g/dL (3.5-5.0); Alkaline Phosphatase 94 U/L (38-126); Anion Gap 6 mmol/L; Blood Urea Nitrogen 16 mg/dL (7-17); Calcium 8.9 mg/dL (8.4-10.2); Carbon Dioxide 30 mmol/L (22-30); Chloride 104 mmol/L (98-107); Glucose 81 mg/dL (74-99); Potassium 4.9 mmol/L (3.5-5.1); Sodium 140 mmol/L (137-145); Total Bilirubin 0.6 mg/dL (0.2-1.3); Total Protein 6.4 g/dL (6.3-8.2)
[2018-11-11] MEDS: SILVER sulfADIAZINE Cream 400 GM 1 APPLIC APPLIC TOPICAL SCH (11:18)
[2018-11-11] MEDS: COLLAGENASE 250 UNIT/GM OINTMENT 30 GM TUBE TOPICAL SCH (11:18)
--- NOTE | 2018-11-11 11:27 | P.PN ---
Subjective Progress Note Date: 11/11/18 This is a 73-year-old female well-known to ID service with underlying history of super obesity, diabetes mellitus type 2, chronic left foot diabetic ulcer and severe peripheral vascular disease. Patient has had multiple interventions in the past for peripheral artery procedures with arthrectomy's. Patient has been recently following with her hose suspender cutter Dr. Reyna for left foot ulcer beginning the end of August. She states that he opened an area in the office and she has been following with him every week but recently changed to Dr. Harvey. She states it has not been getting any better and her home care nurse on Saturday was quite concerned that there was more redness. She saw Dr. Harvey on and was told to come into [facility] for evaluation. She was found to be afebrile, white count 13.8, creatinine 0.87. Lactic acid 2.3. Urine was cloudy with leukoesterase large and the PVCs 182. Blood culture, urine culture and wound culture were obtained in the emergency center. Patient states that her last hemoglobin A1c was 7.9 and would like to have it rechecked. She denies having any fever or chills, no loss of appetite. She complains of generalized achiness but no change. Patient was given 1 L of IV fluids in the emergency room and started on Rocephin and vancomycin and admitted to the [facility] floor. Dr. Riggins is planning for bedside debridement and wound care with [facility]. MRI of the left foot will be ordered to rule out osteomyelitis. Patient states she completed a course of antibiotics about one and a half weeks ago. She does not recall the name of the antibiotic. 11/11/2018 the patient's MRI is now come back with evidence of osteomyelitis of the left foot fifth metatarsal which is in conjunction with the current ulceration. The site is been debrided. Objective - Vital Signs Vital signs: Vital Signs Temp 97.8 F 11/11/18 06:00 Pulse 78 11/11/18 06:00 Resp 20 11/11/18 06:00 BP 145/73 11/11/18 06:00 Pulse Ox 93 L 11/11/18 06:00 Intake & Output 11/10/18 11/11/18 11/11/18 18:59 06:59 18:59 Intake Total 240 300 Balance 240 300 Intake: Oral 240 300 Other: # Voids 2 3 # Bowel Movements 0 - Exam Gen: This is a morbidly obese 73-year-old female. in bed and appears to be comfortable and in no acute distress. HEENT: Head is atraumatic, normocephalic. Pupils equal, round. Sclerae is anicteric. Conjunctiva pink. Mucous members of the mouth are moist. Dentition is in poor order. No thrush noted. NECK: Supple. No JVD. No lymphadenopathy. No thyromegaly. LUNGS: Clear to auscultation. No wheezes or rhonchi. No intercostal retractions. HEART: Regular rate and rhythm. No murmur. ABDOMEN: Obese, Soft. Bowel sounds are present. No masses. No tenderness. EXTREMITIES: The bilateral lower extremity as patient has dark skin changes to the feet and two thirds of the lower extremity, onychomycosis bilaterally. Patient has had amputations of the second and third toes on the left and right third toe. There is an ulcer on the left proximal fifth metatarsal plantar surface which has been debrided which shows evidence of marked improvement since the preoperative status. NEUROLOGICAL: Patient is awake, alert and oriented x3. - Labs CBC & Chem 7: 11/11/18 07:59 11/11/18 07:59 Labs: Abnormal Lab Results - Last 24 Hours (Table) 11/10/18 11/10/18 11/11/18 Range/Units 12:19 17:06 07:59 POC Glucose (mg/dL) 103 H 177 H (75-99) mg/dL Albumin 3.2 L (3.5-5.0) g/dL Microbiology - Last 24 Hours (Table) 11/06/18 13:42 Blood Culture - Preliminary Blood No Growth after 96 hours 11/07/18 10:11 Anaerobic Culture - Final Foot - Left Anaerobic Gm Negative Bacilli Anaerobic Gm Negative Bacilli#2 Microbiology 11/06/18 13:42 Blood Blood Culture - Preliminary No Growth after 96 hours 11/07/18 10:11 Foot - Left Anaerobic Culture - Final Anaerobic Gm Negative Bacilli Anaerobic Gm Negative Bacilli#2 11/07/18 10:11 Foot - Left Gram Stain - Final 11/07/18 10:11 Foot - Left Wound Culture - Final Enterobacter cloacae 11/06/18 13:42 Foot - Left Gram Stain - Final 11/06/18 13:42 Foot - Left Wound Culture - Final Enterobacter cloacae 11/06/18 22:40 Urine,Clean Catch Urine Culture - Final - Imaging and Cardiology MRI is reviewed revealing evidence of the osteomyelitis of the fifth metatarsal. Assessment and Plan (1) Diabetic foot ulcer Current Visit: Yes Status: Acute Code(s): E11.621 - TYPE 2 DIABETES MELLITUS WITH FOOT ULCER; L97.509 - NON-PRESSURE CHRONIC ULCER OTH PRT UNSP FOOT W UNSP SEVERITY SNOMED Code(s): 861790112 (2) Osteomyelitis of foot, left, acute Narrative/Plan: 73-year-old female sent to hospital with worsening ulceration to left plantar ulcer with a significant cellulitis. With a surgical debridement, antibiotic therapy has not been marked improvement. The patient is informed of the difficulty with the foot with the bony infection. She will require a 6 week course of intravenous antibiotic therapy for this complex infection. Colace foot salvage. Currently Enterobacter as well as anaerobic gram-negative bacilli have been found. Constantly with a diabetic foot infection ertapenem and remains an excellent choice in 1 g a day is been requested in the outpatient setting for 42 days. Given her lack of help she likely will be going to an extended care to receive rehab and her antibiotic therapy. Orders are placed it over this can occur in the near future. She would do well at the extended care facility rehab it over they can get her in especially boot to allow her to offload the ulcer site and still improve her ability to ambulate. History of the wound healing Center. She would be an excellent candidate for a total contact cast also. PICC line has been requested the Lovenox was put on hold. Current Visit: Yes Status: Acute Code(s): M86.172 - OTHER ACUTE OSTEOMYELITIS, LEFT ANKLE AND FOOT SNOMED Code(s): 9230113902090189
[2018-11-11 11:48] LABS: Glucose,Whole Blood 106 mg/dL (75-99)
--- NOTE | 2018-11-11 13:00 | P.PN ---
Subjective Progress Note Date: 11/11/18 This is a 73-year-old female, patient of Dr. Fry. She has a known past medical history of diabetes mellitus, cellulitis, left diabetic foot ulcer, hypertension, hyperdynamic lipidemia, peripheral vascular disease with previous right and left toe amputations. Patient presents to the ER due to a left foot ulcer and cellulitis of the left leg. Patient follows up with podiatry she states that in August she had a procedure and possibly debridement to the left foot ulcer. The wound area has yet to close since then. She recently completed antibiotic treatment for the foot infection. She went to see her offset press operator helper, Dr. Harvey today. Dr. Harvey referred her to come to the ER due to left foot ulcer with cellulitis and evidence of infection. It also was malodorous. Patient denies any fever, chills, sweats, nausea or vomiting, bowel movement changes or urinary symptoms. She does report pain with walking. The ulcer is on the left plantar aspect of the foot. It appears that there is some bone visible there is a follow odor. She's been started on vancomycin and Rocephin in the ER. White count elevated 13.8 lactic acid 2.3. Infectious disease has been consulted. X-ray showing soft tissue swelling 11/07/2018 patient is scheduled for MRI of the foot to rule out osteomyelitis. She's currently remains on Rocephin and vancomycin. Followed by infectious disease. Seen by Dr. Riggins this morning for an I&D. White count has normalized from 13.8-10.3. She is complaining of some pain in that foot. [place] has been ordered. Lactic acid has dropped from 2.3 to 2. 2 repeat lactic is p ending. Magnesium is being replaced. She does have evidence of a UTI on urinalysis, urine culture is pending. Patient denies any chest pain or shortness of breath. Denies any nausea or vomiting. Reports having bowel movements. Denies any difficulty urinating. On 11/08/2018 patient was seen and examined on the medical floor she is alert and oriented 3 in no apparent distress she is complaining of some discomfort in her foot otherwise she denies any complaints there is no fever or chills no headache or dizziness no chest pain no shortness of breath no cough no nausea or vomiting no abdominal pain no diarrhea and no urinary symptoms. On 11/09/2018 patient was seen and examined on the medical floor she is complaining of some discomfort in her foot otherwise she denies any complaints there is no fever or chills no headache or dizziness no chest pain no shortness of breath no cough no nausea or vomiting no abdominal pain no diarrhea and no urinary symptoms. Glucose is much better controlled at this time, 11/10/2018 patient lying in bed comfortably. No complaints of pain. Patient currently on IV Invanz. Awaiting final culture results. Wound culture growing Enterobacter cloacae and anaerobic is gram-negative bacilli. Urine culture is negative. Patient denies any chest pain or shortness of breath. Denies any nausea or vomiting. Denies any bowel movement changes or urinary symptoms. 11/11/2018 patient is lying in bed comfortably. She'll be scheduled for PICC line for her long-term antibiotics. Infectious diseases recommending Invanz for 42 days. Also working on ECF placement. Patient's pain is controlled. Denies any chest pain or shortness breath. Denies any nausea or vomiting. Reports having bowel movements. Denies any difficulty urinating. Objective - Vital Signs Vital signs: Vital Signs Temp 97.8 F 11/11/18 06:00 Pulse 78 11/11/18 06:00 Resp 20 11/11/18 06:00 BP 145/73 11/11/18 06:00 Pulse Ox 93 L 11/11/18 06:00 Intake & Output 11/10/18 11/11/18 11/11/18 18:59 06:59 18:59 Intake Total 240 300 Balance 240 300 Intake: Oral 240 300 Other: # Voids 2 3 # Bowel Movements 0 - Exam Head normocephalic Neck supple Lungs clear to auscultation bilaterally no wheezing or crackles Heart regular rate and rhythm S1-S2, no rub or gallop Abdomen is soft nontender nondistended positive bowel sounds no hepatosplenomegaly Extremities no edema. Left foot wrapped in Kerlix and Adrian wrap Neuro alert and orientated to 3 - Labs CBC & Chem 7: 11/11/18 07:59 11/11/18 07:59 Labs: Abnormal Lab Results - Last 24 Hours (Table) 11/10/18 11/11/18 11/11/18 Range/Units 17:06 07:59 11:45 POC Glucose (mg/dL) 177 H 106 H (75-99) mg/dL Albumin 3.2 L (3.5-5.0) g/dL Microbiology - Last 24 Hours (Table) 11/06/18 13:42 Blood Culture - Preliminary Blood No Growth after 96 hours 11/07/18 10:11 Anaerobic Culture - Final Foot - Left Anaerobic Gm Negative Bacilli Anaerobic Gm Negative Bacilli#2 Assessment and Plan Assessment: 1. Infected diabetic Left foot ulcer with cellulitis and osteomyelitis the base of the fifth metatarsal noted on MRI also noted soft tissue ulceration of the plantar and lateral surface of the mid foot with foci of subcutaneous emphysema. Wound culture growing Enterobacter cloacae. And anaerobic is growing gram- negative bacilli. Dr. Jarquin is recommending Invanz 1 g daily for 42 days. Patient scheduled for PICC line placement. radiology manager working on ECF placement. 2. Hypomagnesemia : Repeat Magnesium 1.9 3. Diabetes mellitus type 2 patient is hypoglycemic in the ER with blood sugar 55. Hypoglycemia resolved. A1c 6.9. Continue with sliding scale coverage. Blood sugars remaining stable 4. History of peripheral vascular disease with prior toe amputation on both feet 5. Prior Hospitalization with bilateral lower extremity cellulitis in August 6. Peripheral neuropathy 7. Morbid obesity 8. Essential Hypertension 9. Chronic hypoxic respiratory failure. On 2 L of oxygen at home 10. history of COPD. Continue nebulizer treatments as needed 11. UTI: Urine culture negative Anticipating discharge possibly tomorrow after PICC line placement and if ECF placement can be arranged DVT prophylaxis Lovenox and GI prophylaxis Pepcid I performed an examination of the patient and discussed their management with the physician Dag Sprayer. I have reviewed the Physician Dag Sprayer's notes and agree with the documented findings and plan of care
[2018-11-11] MEDS: MULTIVITAMINS, THERA 1 EACH TAB PO SCH (13:03)
[2018-11-11 17:12] LABS: Glucose,Whole Blood 149 mg/dL (75-99)
[2018-11-11 20:31] LABS: Glucose,Whole Blood 107 mg/dL (75-99)
[2018-11-12] MEDS: INSULIN ASPART (NovoLOG) 100 UNIT/ML VIAL SQ SCH ×2 (07:29→11:48)
[2018-11-12] MEDS: amLODIPine 5 MG TAB PO SCH (07:31)
[2018-11-12] MEDS: MULTIVITAMINS, THERA 1 EACH TAB PO SCH (07:31)
[2018-11-12] MEDS: FAMOTIDINE 20 MG TAB PO SCH (07:31)
[2018-11-12] MEDS: LISINOPRIL 2.5 MG TAB PO SCH (07:31)
[2018-11-12] MEDS: ATORVASTATIN 10 MG TAB PO SCH (07:31)
[2018-11-12] MEDS: HYDROCHLOROTHIAZIDE 50 MG TAB PO SCH (07:31)
[2018-11-12] MEDS: ESCITALOPRAM 20 MG TAB PO SCH (07:31)
[2018-11-12] MEDS: ERTAPENEM 1 GM in SODIUM CHLORIDE 0.9% 50 ML IVPB SCH (07:32)
[2018-11-12] MEDS: SILVER sulfADIAZINE Cream 400 GM 1 APPLIC APPLIC TOPICAL SCH (07:32)
[2018-11-12] MEDS: COLLAGENASE 250 UNIT/GM OINTMENT 30 GM TUBE TOPICAL SCH (07:32)
[2018-11-12] MEDS: GABAPENTIN 400 MG CAP PO SCH (07:33)
[2018-11-12 07:42] LABS: INR 1.1 (<1.2); Prothrombin Time 11.4 sec (9.0-12.0)
[2018-11-12 07:45] LABS: Glucose,Whole Blood 83 mg/dL (75-99)
[2018-11-12 07:45] LABS: Glucose,Whole Blood 68 mg/dL (75-99)
[2018-11-12 08:26] LABS: ALT 27 U/L (9-52); AST 33 U/L (14-36); Albumin 3.1 g/dL (3.5-5.0); Alkaline Phosphatase 82 U/L (38-126); Anion Gap 6 mmol/L; Blood Urea Nitrogen 15 mg/dL (7-17); Calcium 8.9 mg/dL (8.4-10.2); Carbon Dioxide 30 mmol/L (22-30); Chloride 104 mmol/L (98-107); Glucose 50 mg/dL (74-99); Potassium 4.7 mmol/L (3.5-5.1); Sodium 140 mmol/L (137-145); Total Bilirubin 0.6 mg/dL (0.2-1.3); Total Protein 6.2 g/dL (6.3-8.2)
[2018-11-12 08:29] LABS: Basophils # (A) 0.1 k/uL (0-0.2); Basophils % (A) 1 %; Eosinophils # (A) 0.3 k/uL (0-0.7); Eosinophils % (A) 3 %; HCT 46.3 % (34.0-46.0); HGB 13.8 gm/dL (11.4-16.0); Hypochromasia Slight; Lymphocytes # (A) 1.8 k/uL (1.0-4.8); Lymphocytes % (A) 20 %; MCH 27.4 pg (25.0-35.0); MCHC 29.9 g/dL (31.0-37.0); MCV 91.7 fL (80.0-100.0); Mean Platelet Volume 7.2; Monocytes # (A) 0.8 k/uL (0-1.0); Monocytes % (A) 9 %; Neutrophils # (A) 6.1 k/uL (1.3-7.7); Neutrophils % (A) 66 %; Platelet Count 250 k/uL (150-450); RBC 5.05 m/uL (3.80-5.40); RDW 14.1 % (11.5-15.5); WBC 9.4 k/uL (3.8-10.6)
[2018-11-12] MEDS: INSULN ASP PRT/INSULIN ASPART 100 UNIT/ML 10 ML VIAL SQ SCH (08:53)
[2018-11-12] MEDS ORDERED: LIDOCAINE 1% INJ 10MG/ML (20 ML MDV) ONE (09:13)
--- NOTE | 2018-11-12 10:40 | IR ---
EXAMINATION TYPE: IR cvc insert >=5 years DATE OF EXAM: 11/12/2018 COMPARISON: NONE CLINICAL HISTORY: Infection Needs long-term intravenous access for antibiotics. PROCEDURE: After informed consent, the skin overlying the left brachial vein was localized with ultrasound and n oted to be compressible and patent. An ultrasound image was obtained and submitted on the patient's chart. Initial attempt at the left cephalic vein was unsuccessful. The overlying skin was prepped and draped and Lidocaine was used for local anesthesia. A skin binu was made with a scalpel. Access wa s gained to the vein under ultrasound guidance with a 21 gauge needle and a 0.018 inch wire was [employer]. Access site was dilated with Peel-Away sheath and catheter tailored to the appropriate length a nd advanced such that the distal tip is at the cavoatrial junction. Spot image was obtained verifyin g placement. Catheter was fixed to the skin and a sterile dressing was placed following hemostasis. Catheter was aspirated and flushed with saline. Patient was discharged in stable condition without complication. Maximal barrier technique is utilized. Ultrasound image is documented on the chart. Ul trasound used with sterile technique. Fluoro time and fluoroscopic images submitted to document procedure: 294 intraoperative C-arm images. 0.6 minutes fluoroscopy time. IMPRESSION: STATUS POST ULTRASOUND AND FLUOROSCOPIC GUIDED PICC LINE PLACEMENT, READY FOR USE. THIS PROCEDURE WAS PERFORMED BY THE UNDERSIGNED.
[2018-11-12 11:32] LABS: Glucose,Whole Blood 90 mg/dL (75-99)
[2018-11-12] MEDS: CLOPIDOGREL 75 MG TAB PO SCH (13:06)
[2018-11-12] MEDS: VANCOMYCIN 2,000 MG in SODIUM CHLORIDE 0.9% 500 ML 500 ML IVPB SCH (13:07)
--- NOTE | 2018-11-12 14:06 | P.DS ---
Providers Date of admission: 11/06/18 15:11 Expected date of discharge: 11/12/18 Attending physician: Tiffanie Rangel Consults: 11/06/18 15:58 Consult Physician Routine Consulting Provider: Deni Jarquin Consult Reason/Comments: Left foot ulcer Do you want consulting provider notified?: Yes 11/06/18 20:31 Consult Physician Routine Consulting Provider: Uday Riggins Consult Reason/Comments: PAD Do you want consulting provider notified?: Yes Primary care physician: Socorro Fry Hospital Course: Discharge diagnosis 1. Infected diabetic Left foot ulcer with cellulitis and osteomyelitis the base of the fifth metatarsal noted on MRI also noted soft tissue ulceration of the plantar and lateral surface of the mid foot with foci of subcutaneous emphysema. Wound culture growing Enterobacter cloacae. And anaerobic is growing gram- negative bacilli. Dr. Jarquin is recommending Invanz 1 g daily for 42 days. Patient scheduled for PICC line placement. visual manager working on ECF placement. Plan [facility] patient will be discharged to ECF today. Antibiotics per infectious disease 2. Hypomagnesemia : Repeat Magnesium 1.9 3. Diabetes mellitus type 2 patient is hypoglycemic in the ER with blood sugar 55. Hypoglycemia resolved. A1c 6.9. Continue with sliding scale coverage. Blood sugars remaining stable 4. History of peripheral vascular disease with prior toe amputation on both feet 5. Prior Hospitalization with bilateral lower extremity cellulitis in August 6. Peripheral neuropathy 7. Morbid obesity 8. Essential Hypertension 9. Chronic hypoxic respiratory failure. On 2 L of oxygen at home 10. history of COPD. Continue nebulizer treatments as needed 11. UTI: Urine culture negative Hospital course This is a 73-year-old female, patient of Dr. Fry. She has a known past medical history of diabetes mellitus, cellulitis, left diabetic foot ulcer, hypertension, hyperdynamic lipidemia, peripheral vascular disease with previous right and left toe amputations. Patient presents to the ER due to a left foot ulcer and cellulitis of the left leg. Patient follows up with podiatry she states that in August she had a procedure and possibly debridement to the left foot ulcer. The wound area has yet to close since then. She recently completed antibiotic treatment for the foot infection. She went to see her superintendent [place]ed[place], Dr. Harvey today. Dr. Harvey referred her to come to the ER due to left foot ulcer with cellulitis and evidence of infection. It also was malodorous. Patient denies any fever, chills, sweats, nausea or vomiting, bowel movement changes or urinary symptoms. She does report pain with walking. The ulcer is on the left plantar aspect of the foot. It appears that there is some bone visi ble there is a follow odor. She's been started on vancomycin and Rocephin in the ER. White count elevated 13.8 lactic acid 2.3. Infectious disease has been consulted. X-ray showing soft tissue swelling 11/07/2018 patient is scheduled for MRI of the foot to rule out osteomyelitis. She's currently remains on Rocephin and vancomycin. Followed by infectious disease. Seen by Dr. Riggins this morning for an I&D. White count has normalized from 13.8-10.3. She is complaining of some pain in that foot. [place] has been ordered. Lactic acid has dropped from 2.3 to 2. 2 repeat lactic is pending. Magnesium is being replaced. She does have evidence of a UTI on urinalysis, urine culture is pending. Patient denies any chest pain or shortness of breath. Denies any nausea or vomiting. Reports having bowel movements. Denies any difficulty urinating. On 11/08/2018 patient was seen and examined on the medical floor she is alert and oriented 3 in no apparent distress she is complaining of some discomfort in her foot otherwise she denies any complaints there is no fever or chills no headache or dizziness no chest pain no shortness of breath no cough no nausea or vomiting no abdominal pain no diarrhea and no urinary symptoms. On 11/09/2018 patient was seen and examined on the medical floor she is complaining of some discomfort in her foot otherwise she denies any complaints there is no fever or chills no headache or dizziness no chest pain no shortness of breath no cough no nausea or vomiting no abdominal pain no diarrhea and no urinary symptoms. Glucose is much better controlled at this time, 11/10/2018 patient lying in bed comfortably. No complaints of pain. Patient currently on IV Invanz. Awaiting final culture results. Wound culture growing Enterobacter cloacae and anaerobic is gram-negative bacilli. Urine culture is negative. Patient denies any chest pain or shortness of breath. Denies any nausea or vomiting. Denies any bowel movement changes or urinary symptoms. 11/11/2018 patient is lying in bed comfortably. She'll be scheduled for PICC line for her long-term antibiotics. Infectious diseases recommending Invanz for 42 days. Also working on ECF placement. Patient's pain is controlled. Denies any chest pain or shortness breath. Denies any nausea or vomiting. Reports having bowel movements. Denies any difficulty urinating. On 11/12/2018 patient is resting comfortably in bed. Patient did have a Picc line placed today. Patient will be DC'd to [facility]. Antibiotics per infectious disease. Patient denies nausea vomiting or diarrhea. Patient denies any urinary burning or frequency. Patient denies any chest pain or shortness of breath I performed an examination of the patient and discussed their management with the Nurse Practitioner. I have reviewed the Nurse Practitioner's notes and agree with the documented findings and plan of care Patient Condition at Discharge: Stable Plan - Discharge Summary Discharge Rx Participant: No New Discharge Prescriptions: New metroNIDAZOLE [Flagyl] 500 mg PO TID #126 tab cefTRIAXone [Rocephin] 2,000 mg IVPB Q24HR #42 vial Multivitamins, Thera [Multivitamin (formulary)] 1 each PO DAILY@1200 tab INSULIN ASPART (NovoLOG) [NovoLOG (formulary)] 0 unit SQ ACHS vial Insuln Asp Prt/Insulin Aspart [NovoLOG MIX 70-30 VIAL] 80 unit SQ AC-BID vial SILVER sulfADIAZINE Cream [Silvadene 1% Cream] 1 applic TOPICAL DAILY applic Continue Hydrochlorothiazide 50 mg PO DAILY Lovastatin [Mevacor] 20 mg PO DAILY Escitalopram [Lexapro] 20 mg PO DAILY Clopidogrel [Plavix] 75 mg PO DAILY Ipratropium-Albuterol Nebulize [Duoneb 0.5 mg-3 mg/3 ml Soln] 3 ml INHALATION RT-BID PRN PRN Reason: Shortness Of Breath Ibuprofen [Motrin Ib] 400 mg PO BID PRN PRN Reason: Pain amLODIPine [Norvasc] 5 mg PO DAILY #30 tab Lisinopril [Zestril] 2.5 mg PO DAILY #30 tab Gabapentin 800 mg PO BID 30 Days #60 tablet Discontinued metFORMIN HCL 1,000 mg PO BID Insulin NPH Hum/Reg Insulin Hm [NovoLIN 70-30 100 UNIT/ML VIAL] 70 unit SQ AC-BID #1 vial Discharge Medication List Clopidogrel [Plavix] 75 mg PO DAILY 05/02/18 [History] Escitalopram [Lexapro] 20 mg PO DAILY 05/02/18 [History] Hydrochlorothiazide 50 mg PO DAILY 05/02/18 [History] Lovastatin [Mevacor] 20 mg PO DAILY 05/02/18 [History] Ibuprofen [Motrin Ib] 400 mg PO BID PRN 09/05/18 [History] Ipratropium-Albuterol Nebulize [Duoneb 0.5 mg-3 mg/3 ml Soln] 3 ml INHALATION RT-BID PRN 09/05/18 [History] Lisinopril [Zestril] 2.5 mg PO DAILY #30 tab 09/10/18 [Rx] amLODIPine [Norvasc] 5 mg PO DAILY #30 tab 09/10/18 [Rx] Gabapentin 800 mg PO BID 30 Days #60 tablet 11/12/18 [Rx] INSULIN ASPART (NovoLOG) [NovoLOG (formulary)] 0 unit SQ ACHS vial 11/12/18 [Rx] Insuln Asp Prt/Insulin Aspart [NovoLOG MIX 70-30 VIAL] 80 unit SQ AC-BID vial 11/12/18 [Rx] Multivitamins, Thera [Multivitamin (formulary)] 1 each PO DAILY@1200 tab 11/12/18 [Rx] SILVER sulfADIAZINE Cream [Silvadene 1% Cream] 1 applic TOPICAL DAILY applic 11/12/18 [Rx] cefTRIAXone [Rocephin] 2,000 mg IVPB Q24HR #42 vial 11/12/18 [Rx] metroNIDAZOLE [Flagyl] 500 mg PO TID #126 tab 11/12/18 [Rx] Follow up Appointment(s)/Referral(s): Socorro Fry MD [Primary Care Provider] - 1-2 days Deni Jarquin MD [STAFF PHYSICIAN] - 3 Weeks Ambulatory/Diagnostic Orders: Basic Metabolic Panel [LAB.AMB] Location: None Selected Complete Blood Count w/diff [LAB.AMB] Location: None Selected Miscellaneous Lab Order [LAB.AMB] Location: None Selected Patient Instructions/Handouts: Osteomyelitis (DC) Activity/Diet/Wound Care/Special Instructions: Diabetic diet. Dentures present. NWB to left foot. Up with walker. Fall precautions. PICC line to [facility], follow policy. Wound to right plantar surface, cleanse with saline and apply santyl daily and silvedene to surrounding skin. Wrap with kerlix and yarelis wrap. Elevate at rest. Discharge Disposition: TRANSFER TO SNF/ECF
[2018-11-12 14:51] VITALS: BP 143/78; PULSE 75; RESP 16; TEMP 97.5
[2018-11-12] MEDS ORDERED: metroNIDAZOLE 500 MG TAB PO SCH (16:00)
--- NOTE | 2018-11-12 16:53 | P.PN ---
Subjective Progress Note Date: 11/12/18 This is a 73-year-old female well-known to ID service with underlying history of super obesity, diabetes mellitus type 2, chronic left foot diabetic ulcer and severe peripheral vascular disease. Patient has had multiple interventions in the past for peripheral artery procedures with arthrectomy's. Patient has been recently following with her investor relations associate Dr. Reyna for left foot ulcer beginning the end of August. She states that he opened an area in the office and she has been following with him every week but recently changed to Dr. Harvey. She states it has not been getting any better and her home care nurse on Saturday was quite concerned that there was more redness. She saw Dr. Harvey on and was told to come into [facility] for evaluation. She was found to be afebrile, white count 13.8, creatinine 0.87. Lactic acid 2.3. Urine was cloudy with leukoesterase large and the PVCs 182. Blood culture, urine culture and wound culture were obtained in the emergency center. Patient states that her last hemoglobin A1c was 7.9 and would like to have it rechecked. She denies having any fever or chills, no loss of appetite. She complains of generalized achiness but no change. Patient was given 1 L of IV fluids in the emergency room and started on Rocephin and vancomycin and admitted to the [facility] floor. Dr. Riggins is planning for bedside debridement and wound care with [facility]. MRI of the left foot will be ordered to rule out osteomyelitis. Patient states she completed a course of antibiotics about one and a half weeks ago. She does not recall the name of the antibiotic. 11/11/2018 the patient's MRI is now come back with evidence of osteomyelitis of the left foot fifth metatarsal which is in conjunction with the current ulceration. The site is been debrided. 11/12/2018 patient has had further improvement today. We discussed the patient's prehospitalization workup with podiatry. She was receiving adequate therapy and wound care. However plain x-rays have a low sensitivity for early osteomyelitis, which is why the MRI was obtained and has revealed the infection. With her obesity, age and diabetes importance of adequate treatment of this ulceration is again stressed. Objective - Vital Signs Vital signs: Vital Signs Temp 97.5 F L 11/12/18 14:44 Pulse 75 11/12/18 14:44 Resp 16 11/12/18 14:44 BP 143/78 11/12/18 14:44 Pulse Ox 92 L 11/12/18 14:44 Intake & Output 11/11/18 11/12/18 11/12/18 18:59 06:59 18:59 Intake Total 1200 600 Balance 1200 600 Intake: Oral 1200 600 Other: Voiding Method Toilet # Voids 3 4 3 # Bowel Movements 1 - Exam Gen: This is a morbidly obese 73-year-old female. in bed and appears to be comfortable and in no acute distress. HEENT: Head is atraumatic, normocephalic. Pupils equal, round. Sclerae is anicteric. Conjunctiva pink. Mucous members of the mouth are moist. Dentition is in poor order. No thrush noted. NECK: Supple. No JVD. No lymphadenopathy. No thyromegaly. LUNGS: Clear to auscultation. No wheezes or rhonchi. No intercostal retractions. HEART: Regular rate and rhythm. No murmur. ABDOMEN: Obese, Soft. Bowel sounds are present. No masses. No tenderness. EXTREMITIES: The bilateral lower extremity as patient has dark skin changes to the feet and two thirds of the lower extremity, onychomycosis bilaterally. Patient has had amputations of the second and third toes on the left and right third toe. There is an ulcer on the left proximal fifth metatarsal plantar surface which has been debrided which shows evidence of marked improvement since the preoperative status. NEUROLOGICAL: Patient is awake, alert and oriented x3. - Labs CBC & Chem 7: 11/12/18 07:21 11/12/18 07:08 Labs: Abnormal Lab Results - Last 24 Hours (Table) 11/11/18 11/11/18 11/12/18 Range/Units 17:02 20:30 07:08 Hct (34.0-46.0) % MCHC (31.0-37.0) g/dL Glucose 50 L (74-99) mg/dL POC Glucose (mg/dL) 149 H 107 H (75-99) mg/dL Total Protein 6.2 L (6.3-8.2) g/dL Albumin 3.1 L (3.5-5.0) g/dL 11/12/18 11/12/18 Range/Units 07:21 07:23 Hct 46.3 H (34.0-46.0) % MCHC 29.9 L (31.0-37.0) g/dL Glucose (74-99) mg/dL POC Glucose (mg/dL) 68 L (75-99) mg/dL Total Protein (6.3-8.2) g/dL Albumin (3.5-5.0) g/dL Microbiology - Last 24 Hours (Table) 11/06/18 13:42 Blood Culture - Final Blood No Growth after 144 hours Laboratory Results WBC 9.4 k/uL (3.8-10.6) 11/12/18 07:21 RBC 5.05 m/uL (3.80-5.40) 11/12/18 07:21 Hgb 13.8 gm/dL (11.4-16.0) 11/12/18 07:21 Hct 46.3 % (34.0-46.0) H 11/12/18 07:21 MCV 91.7 fL (80.0-100.0) 11/12/18 07:21 MCH 27.4 pg (25.0-35.0) 11/12/18 07:21 MCHC 29.9 g/dL (31.0-37.0) L 11/12/18 07:21 RDW 14.1 % (11.5-15.5) 11/12/18 07:21 Plt Count 250 k/uL (150-450) 11/12/18 07:21 Neutrophils % 66 % 11/12/18 07:21 Lymphocytes % 20 % 11/12/18 07:21 Monocytes % 9 % 11/12/18 07:21 Eosinophils % 3 % 11/12/18 07:21 Basophils % 1 % 11/12/18 07:21 Neutrophils # 6.1 k/uL (1.3-7.7) 11/12/18 07:21 Lymphocytes # 1.8 k/uL (1.0-4.8) 11/12/18 07:21 Monocytes # 0.8 k/uL (0-1.0) 11/12/18 07:21 Eosinophils # 0.3 k/uL (0-0.7) 11/12/18 07:21 Basophils # 0.1 k/uL (0-0.2) 11/12/18 07:21 Hypochromasia Slight 11/12/18 07:21 PT 11.4 sec (9.0-12.0) 11/12/18 07:22 INR 1.1 (<1.2) 11/12/18 07:22 APTT 24.9 sec (22.0-30.0) 11/06/18 13:10 Sodium 140 mmol/L (137-145) 11/12/18 07:08 Potassium 4.7 mmol/L (3.5-5.1) 11/12/18 07:08 Chloride 104 mmol/L (98-107) 11/12/18 07:08 Carbon Dioxide 30 mmol/L (22-30) 11/12/18 07:08 Anion Gap 6 mmol/L 11/12/18 07:08 BUN 15 mg/dL (7-17) 11/12/18 07:08 Creatinine 0.57 mg/dL (0.52-1.04) 11/12/18 07:08 Est GFR (CKD-EPI)AfAm >90 (>60 ml/min/1.73 sqM) 11/12/18 07:08 Est GFR (CKD-EPI)NonAf >90 (>60 ml/min/1.73 sqM) 11/12/18 07:08 Glucose 50 mg/dL (74-99) L 11/12/18 07:08 POC Glucose (mg/dL) 90 mg/dL (75-99) 11/12/18 11:16 POC Glu Calender Tender ID Rachele Curiel 11/12/18 11:[address] Glu mg/dL 151 11/07/18 08:01 Hemoglobin A1c 6.9 % (4.0-6.0) H 11/07/18 08:01 Lactic Ac Sepsis Rflx Y 11/06/18 14:19 Plasma Lactic Acid [place]ian 1.8 mmol/L (0.7-2.0) 11/07/18 11:20 Calcium 8.9 mg/dL (8.4-10.2) 11/12/18 07:08 Phosphorus 2.5 mg/dL (2.5-4.5) 11/06/18 13:10 Magnesium 1.9 mg/dL (1.6-2.3) 11/10/18 08:26 Total Bilirubin 0.6 mg/dL (0.2-1.3) 11/12/18 07:08 AST 33 U/L (14-36) 11/12/18 07:08 ALT 27 U/L (9-52) 11/12/18 07:08 Alkaline Phosphatase 82 U/L (38-126) 11/12/18 07:08 Troponin I <0.012 ng/mL (0.000-0.034) 11/06/18 13:10 Total Protein 6.2 g/dL (6.3-8.2) L 11/12/18 07:08 Albumin 3.1 g/dL (3.5-5.0) L 11/12/18 07:08 Urine Color Yellow 11/06/18 22:40 Urine Appearance Cloudy (Clear) H 11/06/18 22:40 Urine pH 6.0 (5.0-8.0) 11/06/18 22:40 Ur Specific [place] 1.014 (1.001-1.035) 11/06/18 22:40 Urine Protein Negative (Negative) 11/06/18 22:40 Urine Glucose (UA) Negative (Negative) 11/06/18 22:40 Urine Ketones Negative (Negative) 11/06/18 22:40 Urine Blood Small (Negative) H 11/06/18 22:40 Urine Nitrite Negative (Negative) 11/06/18 22:40 Urine Bilirubin Negative (Negative) 11/06/18 22:40 Urine Urobilinogen <2.0 mg/dL (<2.0) 11/06/18 22:40 Ur Leukocyte Esterase Large (Negative) H 11/06/18 22:40 Urine RBC 3 /hpf (0-5) 11/06/18 22:40 Urine WBC >182 /hpf (0-5) H 11/06/18 22:40 Urine WBC Clumps Rare /hpf (None) H 11/06/18 22:40 Ur Squamous Epith Cells 2 /hpf (0-4) 11/06/18 22:40 Vancomycin Trough 21.2 ug/mL 11/09/18 21:00 Microbiology 11/06/18 13:42 Blood Blood Culture - Final No Growth after 144 hours 11/07/18 10:11 Foot - Left Anaerobic Culture - Final Anaerobic Gm Negative Bacilli Anaerobic Gm Negative Bacilli#2 11/07/18 10:11 Foot - Left Gram Stain - Final 11/07/18 10:11 Foot - Left Wound Culture - Final Enterobacter cloacae 11/06/18 13:42 Foot - Left Gram Stain - Final 11/06/18 13:42 Foot - Left Wound Culture - Final Enterobacter cloacae 11/06/18 22:40 Urine,Clean Catch Urine Culture - Final Assessment and Plan (1) Diabetic foot ulcer Status: Acute Code(s): E11.621 - TYPE 2 DIABETES MELLITUS WITH FOOT ULCER; L97.509 - NON-PRESSURE CHRONIC ULCER OTH PRT UNSP FOOT W UNSP SEVERITY SNOMED Code(s): 099527062 (2) Osteomyelitis of foot, left, acute Narrative/Plan: 73-year-old female sent to hospital with worsening ulceration to left plantar ulcer with a significant cellulitis. With a surgical debridement, antibiotic therapy has not been marked improvement. The patient is informed of the difficulty with the foot with the bony infection. She will require a 6 week course of intravenous antibiotic therapy for this complex infection. Colace foot salvage. Currently Enterobacter as well as anaerobic gram-negative bacilli have been found. Constantly with a diabetic foot infection ertapenem and remains an excellent choice in 1 g a day is been requested in the outpatient setting for 42 days. Given her lack of help she likely will be going to an extended care to receive rehab and her antibiotic therapy. Orders are placed it over this can occur in the near future. She would do well at the extended care facility rehab it over they can get her in especially boot to allow her to offload the ulcer site and still improve her ability to ambulate. History of the wound healing Center. She would be an excellent candidate for a total contact cast also. PICC line has been requested the Lovenox was put on hold. 11/12/2018 the patient's cultures are finalized and Enterobacter anaerobic gram- negative bacilli have been found. She's been treated with ertapenem and hospital. However she will not be able to undergo care in her home setting. IV access in place with a PICC line and will go to rehabilitation to receive her intravenous antibiotic therapy as well as her local wound care. Overweight and this time she will also have enhanced glucose control with her improved dietary intake and high protein diet. With adequate offloading wound care and antibiotic therapy we hope to salvage the foot which is her primary goal. Antibiotic therapy will be with Rocephin and metronidazole for the formulary of the extended care facility. She'll follow-up in the office in 3 and 6 weeks. Like to also see the wound center if that is possible. Status: Acute Code(s): M86.172 - OTHER ACUTE OSTEOMYELITIS, LEFT ANKLE AND FOOT SNOMED Code(s): [id number]
[2018-11-13] MEDS ORDERED: VANCOMYCIN TROUGH DUE 1 EACH MISC MISCELLANE ONE (04:00)
== END 2018-11-12 15:46 | DRG 854 ==
LOC: EC 12:37 → 3NMEDONC 15:11 → 4MS4W 11-10 06:58
PROVIDERS: ADMIT Internal Medicine; ATTEND Internal Medicine
PROC: 0JBR0ZZ Excision of Left Foot Subcutaneous Tissue and Fascia, Open Approach (ICD-10-PCS; 2018-11-07)
PROC: 02HV33Z Insertion of Infusion Device into Superior Vena Cava, Percutaneous Approach (ICD-10-PCS; principal; 2018-11-12 09:28)
DX: A41.9 Sepsis, unspecified organism (principal); Z68.43 Body mass index [BMI] 50.0-59.9, adult; J96.11 Chronic respiratory failure with hypoxia; L03.116 Cellulitis of left lower limb; L97.528 Non-pressure chronic ulcer of other part of left foot with other specified severity; M86.172 Other acute osteomyelitis, left ankle and foot; N39.0 Urinary tract infection, site not specified; E11.621 Type 2 diabetes mellitus with foot ulcer; E11.69 Type 2 diabetes mellitus with other specified complication; E11.51 Type 2 diabetes mellitus with diabetic peripheral angiopathy without gangrene; E11.628 Type 2 diabetes mellitus with other skin complications; E11.649 Type 2 diabetes mellitus with hypoglycemia without coma; E66.01 Morbid (severe) obesity due to excess calories; E78.5 Hyperlipidemia, unspecified; E83.42 Hypomagnesemia; H54.7 Unspecified visual loss; I10 Essential (primary) hypertension; J44.9 Chronic obstructive pulmonary disease, unspecified; Z96.1 Presence of intraocular lens; Z79.02 Long term (current) use of antithrombotics/antiplatelets; Z79.2 Long term (current) use of antibiotics; Z79.4 Long term (current) use of insulin; Z79.899 Other long term (current) drug therapy; Z81.8 Family history of other mental and behavioral disorders; Z82.49 Family history of ischemic heart disease and other diseases of the circulatory system; Z87.891 Personal history of nicotine dependence; Z89.422 Acquired absence of other left toe(s); Z89.421 Acquired absence of other right toe(s); Z98.42 Cataract extraction status, left eye; Z98.41 Cataract extraction status, right eye; Z99.81 Dependence on supplemental oxygen; Z88.1 Allergy status to other antibiotic agents; Z88.5 Allergy status to narcotic agent; Z88.0 Allergy status to penicillin; Z88.2 Allergy status to sulfonamides; Z88.8 Allergy status to other drugs, medicaments and biological substances; Z79.1 Long term (current) use of non-steroidal anti-inflammatories (NSAID)
CPT/HCPCS: 36415; 36573; 80053; 80202; 81001; 83036; 83605; 83735; 84100; 84484; 85025; 85610; 85730; 87040; 87070; 87075; 87077; 87086; 87186; 87205; 93005; 94760; 96361; 96365; 99285

== ENCOUNTER 2019-02-28 20:46 | Inpatient (IN) | payer MEDICARE, OTHER ==
[2019-02-28] MEDS: SODIUM CHLORIDE 0.9% 500 ML 500 ML IV SCH ×3 (21:00→21:57)
[2019-02-28 21:35] LABS: Basophils # (A) 0.1 k/uL (0-0.2); Basophils % (A) 1 %; Eosinophils # (A) 0.2 k/uL (0-0.7); Eosinophils % (A) 2 %; HCT 49.4 % (34.0-46.0); HGB 15.8 gm/dL (11.4-16.0); Lymphocytes # (A) 0.7 k/uL (1.0-4.8); Lymphocytes % (A) 5 %; MCH 28.5 pg (25.0-35.0); MCV 89.1 fL (80.0-100.0); Mean Platelet Volume 7.6; Monocytes # (A) 0.4 k/uL (0-1.0); Monocytes % (A) 3 %; Neutrophils # (A) 11.8 k/uL (1.3-7.7); Neutrophils % (A) 89 %; Platelet Count 220 k/uL (150-450); RBC 5.55 m/uL (3.80-5.40); RDW 14.5 % (11.5-15.5); WBC 13.2 k/uL (3.8-10.6)
--- NOTE | 2019-02-28 21:35 | ED ---
Fever HPI - General Chief Complaint: Fever Stated Complaint: Fever Time Seen by Provider: 02/28/19 21:18 Source: EMS Mode of arrival: EMS Limitations: no limitations - History of Present Illness Initial Comments: Lindsey is a morbidly obese 73 yo female with extensive PMH most significant for chronic lower extremity cellulitis, osteomyelitis and PVD resulting in previous amputations. In addition patient had D&C on 02/24. Patient is brought to the ER today by EMS for evaluation of sudden onset of fever and chills. Patient reports she has been in her usual state of health until earlier today when she had sudden onset of chills, she was evaluated by nursing staff at her long term and found to be febrile and tachycardic at which time decision was made to transfer the patient to the hospital for further evaluation. Patient denies any cough, shortness of breath, chest pain, nausea, vomiting, diarrhea or dysuria. She reports she has experienced some mild vaginal bleeding which has been improving since she had the D&C. - Related Data Home Medications Medication Instructions Recorded Confirmed Clopidogrel [Plavix] 75 mg PO DAILY 05/02/18 02/28/19 Escitalopram [Lexapro] 20 mg PO DAILY 05/02/18 02/28/19 Hydrochlorothiazide 50 mg PO DAILY 05/02/18 02/28/19 Lovastatin [Mevacor] 20 mg PO HS 05/02/18 02/28/19 Ibuprofen [Motrin Ib] 400 mg PO BID PRN 09/05/18 02/28/19 Ipratropium-Albuterol Nebulize 3 ml INHALATION RT-BID PRN 09/05/18 02/28/19 [Duoneb 0.5 mg-3 mg/3 ml Soln] Bisacodyl [Dulcolax] 10 mg RECTAL DAILY PRN 02/28/19 02/28/19 Insuln Asp Prt/Insulin Aspart 75 unit SQ BID@0700,1730 02/28/19 02/28/19 [NovoLOG MIX 70-30 VIAL] Liquical 30 ml PO BID@0800,1700 02/28/19 02/28/19 Loperamide HCl [Imodium A-D] 2 - 4 mg PO QID PRN 02/28/19 02/28/19 Magnesium Hydroxide [Milk of 7,200 mg PO DAILY PRN 02/28/19 02/28/19 Magnesia Concentrate] Menthol [Biofreeze] 1 applic TOPICAL DAILY PRN 02/28/19 02/28/19 Menthol-Zinc Oxide Oint 1 applic TOPICAL BID 02/28/19 02/28/19 [Calmoseptine Oint] Multivitamins, Thera [Multivitamin 1 tab PO DAILY@1700 02/28/19 02/28/19 (formulary)] Na Phos,M-B/Na Phos,Di-Ba [Fleet 133 ml RECTAL ONCE PRN 02/28/19 02/28/19 Adult] Previous Rx's Medication Instructions Recorded Lisinopril [Zestril] 2.5 mg PO DAILY #30 tab 09/10/18 amLODIPine [Norvasc] 5 mg PO DAILY #30 tab 09/10/18 Gabapentin 800 mg PO BID 30 Days #60 tablet 11/12/18 Allergies Allergy/AdvReac Type Severity Reaction Status Date / Time adhesive tape Allergy Rash/Hives Verified 02/28/19 21:04 bacitracin Allergy Rash/Hives Verified 02/28/19 21:04 [From Neosporin ([id number])] miconazole Allergy Rash/Hives Verified 02/28/19 21:04 [From Neosporin AF] morphine Allergy Unknown Verified 02/28/19 21:04 neomycin Allergy Rash/Hives Verified 02/28/19 21:04 [From Neosporin ([id number])] Penicillins Allergy Unknown Verified 02/28/19 21:04 polymyxin B Allergy Rash/Hives Verified 02/28/19 21:04 [From Neosporin ([id number])] Sulfa (Sulfonamide Allergy Unknown Verified 02/28/19 21:04 Antibiotics) Review of Systems ROS Statement: Those systems with pertinent positive or pertinent negative responses have been documented in the HPI. ROS Other: All systems not noted in ROS Statement are negative. Constitutional: Reports: fever, chills Cardiovascular: Reports: palpitations Past Medical History Past Medical History: Diabetes Mellitus, Hyperlipidemia, Hypertension, Osteoarthritis (OA), Pneumonia, Vascular Disorder Additional Past Medical History / Comment(s): IDDM type II, neuropathy bilateral feet, current nonhealing L diabetic foot ulcer, past R lower leg ulcer, cellulitis bilateral lower legs, bronchitis, arthritis in multiple joints, PVD, poor vision bilaterally. History of Any Multi-Drug Resistant Organisms: None Reported Past Surgical History: Tonsillectomy Additional Past Surgical History / Comment(s): R foot 3rd toe amp, L foot 2nd/3rd toe amps, benign breast lumps removed, benign cysts removed from legs, bilateral cataract removals with lens implants. Past Anesthesia/Blood Transfusion Reactions: No Reported Reaction Additional Past Anesthesia/Blood Transfusion Reaction / Comment(s): clausterphobia Past Psychological History: No Psychological Hx Reported Smoking Status: Former smoker - Past Family History Father Family Medical History: Myocardial Infarction ([place]) Additional Family Medical History / Comment(s): smoked Mother Family Medical History: CVA/TIA Additional Family Medical History / Comment(s): heart problems, schizophrenia Brother(s) Family Medical History: Cancer Additional Family Medical History / Comment(s): pancareatic cacner General Exam - General Exam Comments Initial Comments: Physical Exam GENERAL: Morbidly obese HENT: Normocephalic, Atraumatic. EYES: PERRL, EOMI PULMONARY: Unlabored respirations CARDIOVASCULAR: Irregularly irregular, tachycardic ABDOMEN: Obese, Soft and nontender with normal bowel sounds. SKIN: Skin changes of bilateral lower extremities consitent with venous stasis Wound to left lateral foot, dressed : Deferred NEUROLOGIC: Patient is alert and oriented x3. Moving all extremities spontaneously MUSCULOSKELETAL: Normal extremities with adequate strength and full range of motion. No lower extremity swelling or edema. No calf tenderness. PSYCHIATRIC: Normal psychiatric evaluation Limitations: no limitations Course Vital Signs 02/28/19 02/28/19 02/28/19 20:48 20:52 21:10 Temperature 99.8 F H Pulse Rate 113 H 140 H Pulse Rate [ Pulse Oximetery ] Respiratory 20 Rate Blood Pressure 81/65 116/62 Blood Pressure [Right Arm Supine] O2 Sat by Pulse 90 L 93 L Oximetry 02/28/19 02/28/19 02/28/19 21:58 22:52 23:49 Temperature 99.0 F 100.1 F H Pulse Rate 135 H 133 H Pulse Rate [ 117 H Pulse Oximetery ] Respiratory 16 16 16 Rate Blood Pressure 122/79 101/59 Blood Pressure 133/55 [Right Arm Supine] O2 Sat by Pulse 94 L 95 93 L Oximetry Medical Decision Making - Medical Decision Making Sepsis workup initiated upon arrival Workup consistent with sepsis secondary to UTI - rocephin ordered Patient remains tachycardic and in afib after IVF - cardizem ordered Currently on Plavix, she has a CHADVASC2 score of 2, currently experiencing vaginal bleeding secondary to a recent D&C. At this point I do not feel the patient would benefit from heparin, I feel her A. fib is likely secondary to sepsis. I think fluid resuscitation and rate management and referral to card iology for further regarding anticoagulation Care was discussed with her primary care physician Dr. Rangel who agrees with plan for admission - Lab Data Result diagrams: 02/28/19 21:02 02/28/19 21:02 Lab Results 02/28/19 02/28/19 02/28/19 Range/Units 21:00 21:02 21:02 WBC 13.2 H (3.8-10.6) k/uL RBC 5.55 H (3.80-5.40) m/uL Hgb 15.8 (11.4-16.0) gm/dL Hct 49.4 H (34.0-46.0) % MCV 89.1 (80.0-100.0) fL MCH 28.5 (25.0-35.0) pg MCHC 32.0 (31.0-37.0) g/dL RDW 14.5 (11.5-15.5) % Plt Count 220 (150-450) k/uL Neutrophils % 89 % Lymphocytes % 5 % Monocytes % 3 % Eosinophils % 2 % Basophils % 1 % Neutrophils # 11.8 H (1.3-7.7) k/uL Lymphocytes # 0.7 L (1.0-4.8) k/uL Monocytes # 0.4 (0-1.0) k/uL Eosinophils # 0.2 (0-0.7) k/uL Basophils # 0.1 (0-0.2) k/uL PT (9.0-12.0) sec INR (<1.2) APTT (22.0-30.0) sec Sodium 139 (137-145) mmol/L Potassium 4.3 (3.5-5.1) mmol/L Chloride 99 (98-107) mmol/L Carbon Dioxide 32 H (22-30) mmol/L Anion Gap 8 mmol/L BUN 23 H (7-17) mg/dL Creatinine 0.84 (0.52-1.04) mg/dL Est GFR (CKD-EPI)AfAm 81 (>60 ml/min/1.73 sqM) Est GFR (CKD-EPI)NonAf 70 (>60 ml/min/1.73 sqM) Glucose 240 H (74-99) mg/dL Plasma Lactic Acid Demian (0.7-2.0) mmol/L Calcium 8.4 (8.4-10.2) mg/dL Total Bilirubin 0.9 (0.2-1.3) mg/dL AST 31 (14-36) U/L ALT 17 (9-52) U/L Alkaline Phosphatase 121 (38-126) U/L Troponin I (0.000-0.034) ng/mL Total Protein 6.9 (6.3-8.2) g/dL Albumin 3.6 (3.5-5.0) g/dL Urine Color Yellow Urine Appearance Turbid H (Clear) Urine pH 5.5 (5.0-8.0) Ur Specific [place] 1.015 (1.001-1.035) Urine Protein 2+ H (Negative) Urine Glucose (UA) 1+ H (Negative) Urine Ketones Negative (Negative) Urine Blood Moderate H (Negative) Urine Nitrite Positive H (Negative) Urine Bilirubin Negative (Negative) Urine Urobilinogen <2.0 (<2.0) mg/dL Ur Leukocyte Esterase Large H (Negative) Urine RBC 18 H (0-5) /hpf Urine WBC >182 H (0-5) /hpf Urine WBC Clumps Many H (None) /hpf Urine Bacteria Few H (None) /hpf 02/28/19 02/28/19 02/28/19 Range/Units 21:02 21:02 21:02 WBC (3.8-10.6) k/uL RBC (3.80-5.40) m/uL Hgb (11.4-16.0) gm/dL Hct (34.0-46.0) % MCV (80.0-100.0) fL MCH (25.0-35.0) pg MCHC (31.0-37.0) g/dL RDW (11.5-15.5) % Plt Count (150-450) k/uL Neutrophils % % Lymphocytes % % Monocytes % % Eosinophils % % Basophils % % Neutrophils # (1.3-7.7) k/uL Lymphocytes # (1.0-4.8) k/uL Monocytes # (0-1.0) k/uL Eosinophils # (0-0.7) k/uL Basophils # (0-0.2) k/uL PT 10.7 (9.0-12.0) sec INR 1.0 (<1.2) APTT 18.8 L (22.0-30.0) sec Sodium (137-145) mmol/L Potassium (3.5-5.1) mmol/L Chloride (98-107) mmol/L Carbon Dioxide (22-30) mmol/L Anion Gap mmol/L BUN (7-17) mg/dL Creatinine (0.52-1.04) mg/dL Est GFR (CKD-EPI)AfAm (>60 ml/min/1.73 sqM) Est GFR (CKD-EPI)NonAf (>60 ml/min/1.73 sqM) Glucose (74-99) mg/dL Plasma Lactic Acid [place] 1.9 (0.7-2.0) mmol/L Calcium (8.4-10.2) mg/dL Total Bilirubin (0.2-1.3) mg/dL AST (14-36) U/L ALT (9-52) U/L Alkaline Phosphatase (38-126) U/L Troponin I <0.012 (0.000-0.034) ng/mL Total Protein (6.3-8.2) g/dL Albumin (3.5-5.0) g/dL Urine Color Urine Appearance (Clear) Urine pH (5.0-8.0) Ur Specific [place] (1.001-1.035) Urine Protein (Negative) Urine Glucose (UA) (Negative) Urine Ketones (Negative) Urine Blood (Negative) Urine Nitrite (Negative) Urine Bilirubin (Negative) Urine Urobilinogen (<2.0) mg/dL Ur Leukocyte Esterase (Negative) Urine RBC (0-5) /hpf Urine WBC (0-5) /hpf Urine WBC Clumps (None) /hpf Urine Bacteria (None) /hpf Critical Care Time Critical Care Time: Yes Total Critical Care Time: 45 Disposition Clinical Impression: Sepsis, UTI (urinary tract infection), New onset a-fib Disposition: ADMITTED IP TO THIS HOSP
[2019-02-28 21:44] LABS: Albumin 3.6 g/dL (3.5-5.0); Calcium 8.4 mg/dL (8.4-10.2); Total Bilirubin 0.9 mg/dL (0.2-1.3); Total Protein 6.9 g/dL (6.3-8.2)
[2019-02-28 21:48] LABS: Potassium 4.3 mmol/L (3.5-5.1)
[2019-02-28 21:49] LABS: Prothrombin Time 10.7 sec (9.0-12.0)
--- NOTE | 2019-02-28 21:50 | XR ---
EXAMINATION TYPE: XR chest 2V DATE OF EXAM: 02/28/2019 COMPARISON: 09/05/2018 HISTORY: Fever TECHNIQUE: Frontal and lateral views of the chest are obtained. FINDINGS: Heart is top normal in size. Lungs are clear of consolidation. There is no heart failure. There is no pleural effusion. Bony thorax is intact. IMPRESSION: Borderline cardiomegaly. No acute lung disease. No change.
--- NOTE | 2019-02-28 21:51 | XR ---
EXAMINATION TYPE: XR KUB DATE OF EXAM: 02/28/2019 COMPARISON: NONE HISTORY: Pain and fever TECHNIQUE: 4 views supine and upright FINDINGS: There is no sign of intestinal obstruction or pneumoperitoneum. There is large calcified ut erine fibroid. There are no pathologic calcifications over the kidneys. I see no sign of a mass. IMPRESSION: Nonacute abdomen.
[2019-02-28 21:56] LABS: Partial Thromboplastin Time 18.8 sec (22.0-30.0)
[2019-02-28 22:26] LABS: Appearance,Urine Turbid (Clear); Bilirubin,Urine Negative (Negative); Blood,Urine Moderate (Negative); Color,Urine Yellow; Glucose,Urine (UA) 1+ (Negative); Ketones,Urine Negative (Negative); Leukocyte Esterase,Urine Large (Negative); Nitrite,Urine Positive (Negative); PH, Urine 5.5 (5.0-8.0); Protein,Urine 2+ (Negative); RBC,Urine 18 /hpf (0-5); Urobilinogen,Urine <2.0 mg/dL (<2.0); WBC,Urine >182 /hpf (0-5)
[2019-02-28 22:27] LABS: Specific Gravity,Urine 1.015 (1.001-1.035)
[2019-02-28 22:28] LABS: Bacteria,Urine Few /hpf
[2019-02-28] MEDS ORDERED: cefTRIAXone IN SWFI 1,000 MG/10 ML SYRINGE IVP STA (22:39)
[2019-02-28] MEDS ORDERED: ACETAMINOPHEN TAB 325 MG TAB PO STA (22:39)
[2019-02-28] MEDS ORDERED: DILTIAZEM DRIP BOLUS FROM BAG 1 MG SOLN IV ONE (22:43)
[2019-02-28] MEDS ORDERED: DILTIAZEM 125 MG in SODIUM CHLORIDE 0.9% 100 ML IV SCH (22:45)
[2019-02-28] MEDS ORDERED: NALOXONE 0.4 MG/ML 1 ML VIAL IV PRN (22:45)
[2019-02-28] MEDS ORDERED: ACETAMINOPHEN TAB 325 MG TAB PO PRN (22:45)
[2019-02-28] MEDS ORDERED: IBUPROFEN 400 MG TAB PO PRN (22:45)
[2019-03-01 06:20] LABS: Glucose,Whole Blood 135 mg/dL (75-99)
[2019-03-01] MEDS: INSULIN ASPART (NovoLOG) 100 UNIT/ML VIAL SQ SCH ×4 (07:02→21:55)
--- NOTE | 2019-03-01 08:30 | CONS ---
CONSULTATION Mrs. Galarza is a 73-year-old female with known history of hypertension, diabetes and hyperlipidemia, history of peripheral vascular disease with history of nonhealing ulcer in the left foot, [facility] who presented with a febrile episode and chills with symptoms of urinary tract infection. In the emergency room, she was noted to be in atrial fibrillation with rapid ventricular response. The patient does not feel the palpitation, is unaware of the arrhythmia. She denies any chest pain. She has dyspnea on exertion that is chronic and chronic peripheral edema. She has no recent cardiac workup. She has been in sinus mechanism in the past. She has no history of PND, orthopnea. She has no dizziness or palpitation. Her coronary risk factors are remarkable for hypertension, diabetes mellitus, hyperlipidemia. She has stopped smoking 30 years ago. MEDICATION: Include Norvasc 5 mg daily, multivitamin, lovastatin 20 mg daily, Zestril 2.5 mg daily, DuoNeb, insulin, ibuprofen, hydrochlorothiazide 50 mg daily, Lexapro 20 mg daily, Plavix 75 mg daily, and Dulcolax. REVIEW OF SYSTEMS: RESPIRATORY system: She has dyspnea on exertion, but no history of documented obstructive lung disease, GI system: No recent GI bleeding. No peptic ulcer disease. system: She has some dysuria. No hematuria. Nervous system: No stroke or seizure. PHYSICAL EXAMINATION: 73-year-old female, alert, oriented, in no apparent distress. Morbidly obese. Blood pressure 133/60 with a heart rate in the 90s. On presentation, her heart rate was in the 140s. She had a temperature of a 100.1. HEAD: Normocephalic. EYES: Sclerae anicteric. NECK: Good upstroke. No bruit. No jugular venous distention. LUNGS: Clear to auscultation. HEART: Irregularly, irregular, S1, S2. No S3 with systolic murmur at the base. No diastolic murmur. No rub. ABDOMEN: Soft, obese, nontender. EXTREMITIES: With chronic skin changes, erythema noted bilaterally with amputation noted in the left foot. EKG revealed atrial fibrillation, rate 134 with QS pattern in the anterior wall and nonspecific ST-T wave changes. Chest x-ray revealed no acute infiltrate. Abdominal x- ray shows no acute changes. LAB DATA: Lab data revealed BUN and creatinine of 23 and 0.84. Troponin less than 0.012. Hemoglobin of 4.3, white blood cell of 13.2, hemoglobin of 15.8. IMPRESSION: 1. Atrial fibrillation appears to be of recent onset. Patient asymptomatic in that regard. She has no change in her breathing and does not feel the palpitation. In the past, she has been in sinus mechanism. The event could be triggered by the Infectious process. 2. Febrile episode with likely urinary tract infection. 3. Prior history of cellulitis and nonhealing wound. 4. History of hypertension. 5. Hyperlipidemia. 6. Diabetes mellitus. 7. Obesity. RECOMMENDATIONS: From the cardiac standpoint, I will initiate anticoagulation. I will stop her IV Cardizem and switch her to oral. I will obtain an echocardiogram with Doppler and depending on her progress, further recommendations will be made. Thank you for this consult. We will follow with you. MMODL / IJN: [id number] /
[2019-03-01] MEDS: HYDROCHLOROTHIAZIDE 50 MG TAB PO SCH (08:43)
[2019-03-01] MEDS: LISINOPRIL 2.5 MG TAB PO SCH (08:43)
[2019-03-01] MEDS: METOPROLOL TARTRATE 50 MG TAB PO SCH ×2 (08:43→20:07)
[2019-03-01] MEDS: ATORVASTATIN 40 MG TAB PO SCH (08:43)
[2019-03-01] MEDS: APIXABAN 5 MG TAB PO SCH ×2 (08:43→20:07)
[2019-03-01] MEDS ORDERED: IBUPROFEN 200 MG TAB PO PRN (10:35)
[2019-03-01] MEDS ORDERED: IPRATROPIUM-ALBUTEROL 3 ML NEB INHALATION PRN (10:35)
[2019-03-01] MEDS ORDERED: MAGNESIUM HYDROXIDE 2,400 MG/10 ML CUP PO PRN (10:35)
[2019-03-01] MEDS ORDERED: METHYL SALICYLATE/MENTHOL CREAM 5 OZ TOPICAL PRN (10:35)
[2019-03-01] MEDS ORDERED: NA PHOS,M-B/NA PHOS,DI-BA 133 ML ENEMA RECTAL PRN (10:35)
[2019-03-01] MEDS ORDERED: BISACODYL 10 MG SUPP RECTAL PRN (10:35)
[2019-03-01] MEDS ORDERED: LOPERAMIDE 2 MG CAP PO PRN (10:35)
[2019-03-01] MEDS: amLODIPine 5 MG TAB PO SCH (11:41)
[2019-03-01] MEDS: ESCITALOPRAM 20 MG TAB PO SCH (11:53)
[2019-03-01] MEDS: CLOPIDOGREL 75 MG TAB PO SCH (11:53)
[2019-03-01] MEDS: MULTIVITAMINS, THERA 1 EACH TAB PO SCH (11:53)
[2019-03-01 12:07] VITALS: BMI 43.9
[2019-03-01 12:11] LABS: Glucose,Whole Blood 192 mg/dL (75-99)
--- NOTE | 2019-03-01 14:34 | P.HPIM ---
History of Present Illness H&P Date: 03/01/19 Lindsey Galarza is a 73 -year-old female female with extensive past medical history significant for chronic lower extremity cellulitis, osteomyelitis and PVD patient was recently admitted to [facility] however she was transferred back to emergency room by EMS due to low oxygen saturation tachycardia and tachypnea, patient had evidence of atrial fibrillation with rapid ventricular response she was started on Cardizem drip and was admitted to telemetry floor cardiology consultation was requested patient also had evidence of urinary tract infection she was started on IV antibiotics. Patient was seen and examined on the telemetry floor on 03/01/2019 she is alert and oriented 3 in no apparent distress at this time there is no fever or chills no headache or dizziness no chest pain no shortness of breath no cough no nausea or vomiting no abdominal pain no diarrhea no burning was urination no frequency and or urgency and no hematuria lateral lower extremity erythema and swelling in the pretibial area patient is wearing protective boots Past Medical History Past Medical History: Diabetes Mellitus, Hyperlipidemia, Hypertension, Osteoarthritis (OA), Pneumonia, Vascular Disorder Additional Past Medical History / Comment(s): IDDM type II, neuropathy bilateral feet, current nonhealing L diabetic foot ulcer, past R lower leg ulcer, cellulitis bilateral lower legs, bronchitis, arthritis in multiple joints, PVD, poor vision bilaterally. History of Any Multi-Drug Resistant Organisms: None Reported Past Surgical History: Tonsillectomy Additional Past Surgical History / Comment(s): R foot 3rd toe amp, L foot 2nd/3rd toe amps, benign breast lumps removed, benign cysts removed from legs, bilateral cataract removals with lens implants. Past Anesthesia/Blood Transfusion Reactions: No Reported Reaction Additional Past Anesthesia/Blood Transfusion Reaction / Comment(s): clausterphobia Past Psychological History: No Psychological Hx Reported Smoking Status: Former smoker - Past Family History Father Family Medical History: Myocardial Infarction ([place]) Additional Family Medical History / Comment(s): smoked Mother Family Medical History: CVA/TIA Additional Family Medical History / Comment(s): heart problems, schizophrenia Brother(s) Family Medical History: Cancer Additional Family Medical History / Comment(s): pancareatic cacner Medications and Allergies Home Medications Medication Instructions Recorded Confirmed Type Clopidogrel [Plavix] 75 mg PO DAILY 05/02/18 02/28/19 History Escitalopram [Lexapro] 20 mg PO DAILY 05/02/18 02/28/19 History Hydrochlorothiazide 50 mg PO DAILY 05/02/18 02/28/19 History Lovastatin [Mevacor] 20 mg PO HS 05/02/18 02/28/19 History Ibuprofen [Motrin Ib] 400 mg PO BID PRN 09/05/18 02/28/19 History Ipratropium-Albuterol Nebulize 3 ml INHALATION RT-BID PRN 09/05/18 02/28/19 History [Duoneb 0.5 mg-3 mg/3 ml Soln] Lisinopril [Zestril] 2.5 mg PO DAILY #30 tab 09/10/18 02/28/19 Rx amLODIPine [Norvasc] 5 mg PO DAILY #30 tab 09/10/18 02/28/19 Rx Gabapentin 800 mg PO BID 30 Days #60 tablet 11/12/18 02/28/19 Rx Bisacodyl [Dulcolax] 10 mg RECTAL DAILY PRN 02/28/19 02/28/19 History Insuln Asp Prt/Insulin Aspart 75 unit SQ BID@0700,1730 02/28/19 02/28/19 History [NovoLOG MIX 70-30 VIAL] Liquical 30 ml PO BID@0800,1700 02/28/19 02/28/19 History Loperamide HCl [Imodium A-D] 2 - 4 mg PO QID PRN 02/28/19 02/28/19 History Magnesium Hydroxide [Milk of 7,200 mg PO DAILY PRN 02/28/19 02/28/19 History Magnesia Concentrate] Menthol [Biofreeze] 1 applic TOPICAL DAILY PRN 02/28/19 02/28/19 History Menthol-Zinc Oxide Oint 1 applic TOPICAL BID 02/28/19 02/28/19 History [Calmoseptine Oint] Multivitamins, Thera [Multivitamin 1 tab PO DAILY@1700 02/28/19 02/28/19 History (formulary)] Na Phos,M-B/Na Phos,Di-Ba [Fleet 133 ml RECTAL ONCE PRN 02/28/19 02/28/19 History Adult] Allergies Allergy/AdvReac Type Severity Reaction Status Date / Time adhesive tape Allergy Rash/Hives Verified 02/28/19 21:04 bacitracin Allergy Rash/Hives Verified 02/28/19 21:04 [From Neosporin ([id number])] miconazole Allergy Rash/Hives Verified 02/28/19 21:04 [From Neosporin AF] morphine Allergy Unknown Verified 02/28/19 21:04 neomycin Allergy Rash/Hives Verified 02/28/19 21:04 [From Neosporin ([id number])] Penicillins Allergy Unknown Verified 02/28/19 21:04 polymyxin B Allergy Rash/Hives Verified 02/28/19 21:04 [From Neosporin ([id number])] Sulfa (Sulfonamide Allergy Unknown Verified 02/28/19 21:04 Antibiotics) Physical Exam Vitals: Vital Signs Temp Pulse Pulse Resp BP BP Pulse Ox 03/01/19 12:00 61 03/01/19 11:39 97.1 F L 61 18 110/59 97 03/01/19 08:00 99.1 F 80 18 143/61 92 L 03/01/19 07:58 91 03/01/19 04:00 99.2 F 91 17 133/60 93 L 03/01/19 00:00 117 H 16 02/28/19 23:49 100.1 F H 117 H 16 133/55 93 L 02/28/19 22:52 99.0 F 133 H 16 101/59 95 02/28/19 21:58 135 H 16 122/79 94 L 02/28/19 21:10 140 H 02/28/19 20:52 116/62 93 L 02/28/19 20:48 99.8 F H 113 H 20 81/65 90 L Intake and Output 02/28/19 03/01/19 03/01/19 22:59 06:59 14:59 Intake Total 1500 240 Balance 1500 240 Intake: Intake, IV Titration 1500 Amount Sodium Chloride 0.9% 500 1500 ml 500 ml @ 1000 mls/hr IV Q35M [facility] Rx#:[id number] Oral 240 Other: Voiding Method Diaper Diaper # Voids 2 Weight 156.036 kg 123.64 kg 123.64 kg In general patient is alert and oriented 3 in no apparent distress HEENT head normocephalic and atraumatic Neck is supple no JVD no goiter no lymphadenopathy Chest exam reveals a few scattered rhonchi no wheezing Cardiac exam reveals regular heart sounds S1 and S2 no gallops no murmurs Abdomen is soft nontender no organomegaly with normal bowel sounds Extremity exam reveals no edema no cyanosis or clubbing Neurological examination reveals no gross focal deficit Results CBC & Chem 7: 02/28/19 21:02 02/28/19 21:02 Labs: Abnormal Lab Results - Last 24 Hours (Table) 02/28/19 02/28/19 02/28/19 Range/Units 21:00 21:02 21:02 WBC 13.2 H (3.8-10.6) k/uL RBC 5.55 H (3.80-5.40) m/uL Hct 49.4 H (34.0-46.0) % Neutrophils # 11.8 H (1.3-7.7) k/uL Lymphocytes # 0.7 L (1.0-4.8) k/uL APTT (22.0-30.0) sec Carbon Dioxide 32 H (22-30) mmol/L BUN 23 H (7-17) mg/dL Glucose 240 H (74-99) mg/dL POC Glucose (mg/dL) (75-99) mg/dL Urine Appearance Turbid H (Clear) Urine Protein 2+ H (Negative) Urine Glucose (UA) 1+ H (Negative) Urine Blood Moderate H (Negative) Urine Nitrite Positive H (Negative) Ur Leukocyte Esterase Large H (Negative) Urine RBC 18 H (0-5) /hpf Urine WBC >182 H (0-5) /hpf Urine WBC Clumps Many H (None) /hpf Urine Bacteria Few H (None) /hpf 02/28/19 03/01/19 03/01/19 Range/Units 21:02 06:17 11:44 WBC (3.8-10.6) k/uL RBC (3.80-5.40) m/uL Hct (34.0-46.0) % Neutrophils # (1.3-7.7) k/uL Lymphocytes # (1.0-4.8) k/uL APTT 18.8 L (22.0-30.0) sec Carbon Dioxide (22-30) mmol/L BUN (7-17) mg/dL Glucose (74-99) mg/dL POC Glucose (mg/dL) 135 H 192 H (75-99) mg/dL Urine Appearance (Clear) Urine Protein (Negative) Urine Glucose (UA) (Negative) Urine Blood (Negative) Urine Nitrite (Negative) Ur Leukocyte Esterase (Negative) Urine RBC (0-5) /hpf Urine WBC (0-5) /hpf Urine WBC Clumps (None) /hpf Urine Bacteria (None) /hpf Microbiology - Last 24 Hours (Table) 02/28/19 21:00 Urine Culture - Preliminary Urine,Catheterized Thrombosis Risk Factor Assmnt - Choose All That Apply Any of the Below Risk Factors Present?: Yes Each Factor Represents 1 point: Medical pt on bed rest, Obesity (BMI >25), Swollen legs (current) Other Risk Factors: Yes Each Risk Factor Represents 2 Points: Age 61-74 years Other congenital or acquired thrombophilia - If yes, enter type in comment: No Thrombosis Risk Factor Assessment Total Risk Factor Score: 5 Thrombosis Risk Factor Assessment Level: High Risk Assessment and Plan Plan: #1 atrial fibrillation with rapid ventricular response #2 urinary tract infection with sepsis #3 vaginal bleeding patient had a recent D&C #4 bilateral lower extremity cellulitis #5 peripheral vascular disease #6 underlying history of diabetes mellitus #7 underlying history of hypertension #8 underlying history of hyperlipidemia At this time patient is admitted to telemetry floor, cardiology consult was requested for management of atrial fibrillation with rapid ventricular response Patient was started on IV antibiotic for management of urinary tract infection and lower extremity cellulitis consultation for Dr. Jarquin was initiated patient is well known to him Continue current medication otherwise will follow closely
[2019-03-01] MEDS ORDERED: [UNRECOGNIZED DRUG - OTHER] PO SCH (17:00)
[2019-03-01] MEDS: INSULN ASP PRT/INSULIN ASPART 100 UNIT/ML 10 ML VIAL SQ SCH (17:03)
[2019-03-01 17:10] LABS: Glucose,Whole Blood 201 mg/dL (75-99)
[2019-03-01] MEDS: GABAPENTIN 400 MG CAP PO SCH (20:07)
[2019-03-01] MEDS: MENTHOL-ZINC OXIDE OINT 113 GM TUBE TOPICAL SCH (20:07)
[2019-03-01] MEDS ORDERED: NON-FORMULARY DRUG (Lovastatin 20 MG) PO SCH (21:00)
[2019-03-01 21:56] LABS: Glucose,Whole Blood 103 mg/dL (75-99)
--- NOTE | 2019-03-02 06:32 | P.CONS ---
History of Present Illness - Reason for Consult Consult date: 03/01/19 sepsis Requesting physician: Tiffanie Rangel - Chief Complaint Fever , rigors x 1 day - History of Present Illness Patient is 73 year female [facility] resident has been brought into the ER for evaluation of fever rigors and chills at parent started the day of presentation to the hospital, the patient had denies having any headache or URI symptoms no chest pain shortness of breath or cough no abdominal pain she did have some suprapubic discomfort and burning. No frequency no flank pain no nausea no vomiting and no abdominal pain and no diarrhea patient also have a chronic nonhealing wound to her left foot currently being treated at [facility] care [place] by Dr. Jarquin patient denies having any pain to the left foot wound area and no pain to the lower extremity patient was noted to have some redness to both the legs with the Santyl to the patient has been evaluated by the physician the patient did have low-grade fever 100.1 patient did have elevat ed white count she did have positive UA chest x-ray has been reported negative patient was started on Rocephin 1 g daily admitted to the hospital infectious disease was consulted for further recommendation regarding antibiotic therapy Review of Systems Positive points has been mentioned in HPI rest of the systems negative Past Medical History Past Medical History: Diabetes Mellitus, Hyperlipidemia, Hypertension, Osteoarthritis (OA), Pneumonia, Vascular Disorder Additional Past Medical History / Comment(s): IDDM type II, neuropathy bilateral feet, current nonhealing L diabetic foot ulcer, past R lower leg ulcer, cellulitis bilateral lower legs, bronchitis, arthritis in multiple joints, PVD, poor vision bilaterally. History of Any Multi-Drug Resistant Organisms: None Reported Past Surgical History: Tonsillectomy Additional Past Surgical History / Comment(s): R foot 3rd toe amp, L foot 2nd/3rd toe amps, benign breast lumps removed, benign cysts removed from legs, bilateral cataract removals with lens implants. Past Anesthesia/Blood Transfusion Reactions: No Reported Reaction Additional Past Anesthesia/Blood Transfusion Reaction / Comm: clausterphobia Past Psychological History: No Psychological Hx Reported Smoking Status: Former smoker - Past Family History Father Family Medical History: Myocardial Infarction ([place]) Additional Family Medical History / Comment(s): smoked Mother Family Medical History: CVA/TIA Additional Family Medical History / Comment(s): heart problems, schizophrenia Brother(s) Family Medical History: Cancer Additional Family Medical History / Comment(s): pancareatic cacner Medications and Allergies Home Medications Medication Instructions Recorded Confirmed Type Clopidogrel [Plavix] 75 mg PO DAILY 05/02/18 02/28/19 History Escitalopram [Lexapro] 20 mg PO DAILY 05/02/18 02/28/19 History Hydrochlorothiazide 50 mg PO DAILY 05/02/18 02/28/19 History Lovastatin [Mevacor] 20 mg PO HS 05/02/18 02/28/19 History Ibuprofen [Motrin Ib] 400 mg PO BID PRN 09/05/18 02/28/19 History Ipratropium-Albuterol Nebulize 3 ml INHALATION RT-BID PRN 09/05/18 02/28/19 History [Duoneb 0.5 mg-3 mg/3 ml Soln] Lisinopril [Zestril] 2.5 mg PO DAILY #30 tab 09/10/18 02/28/19 Rx amLODIPine [Norvasc] 5 mg PO DAILY #30 tab 09/10/18 02/28/19 Rx Gabapentin 800 mg PO BID 30 Days #60 tablet 11/12/18 02/28/19 Rx Bisacodyl [Dulcolax] 10 mg RECTAL DAILY PRN 02/28/19 02/28/19 History Insuln Asp Prt/Insulin Aspart 75 unit SQ BID@0700,1730 02/28/19 02/28/19 History [NovoLOG MIX 70-30 VIAL] Liquical 30 ml PO BID@0800,1700 02/28/19 02/28/19 History Loperamide HCl [Imodium A-D] 2 - 4 mg PO QID PRN 02/28/19 02/28/19 History Magnesium Hydroxide [Milk of 7,200 mg PO DAILY PRN 02/28/19 02/28/19 History Magnesia Concentrate] Menthol [Biofreeze] 1 applic TOPICAL DAILY PRN 02/28/19 02/28/19 History Menthol-Zinc Oxide Oint 1 applic TOPICAL BID 02/28/19 02/28/19 History [Calmoseptine Oint] Multivitamins, Thera [Multivitamin 1 tab PO DAILY@1700 02/28/19 02/28/19 History (formulary)] Na Phos,M-B/Na Phos,Di-Ba [Fleet 133 ml RECTAL ONCE PRN 02/28/19 02/28/19 History Adult] Allergies Allergy/AdvReac Type Severity Reaction Status Date / Time adhesive tape Allergy Rash/Hives Verified 02/28/19 21:04 bacitracin Allergy Rash/Hives Verified 02/28/19 21:04 [From Neosporin ([id number])] miconazole Allergy Rash/Hives Verified 02/28/19 21:04 [From Neosporin AF] morphine Allergy Unknown Verified 02/28/19 21:04 neomycin Allergy Rash/Hives Verified 02/28/19 21:04 [From Neosporin ([id number])] Penicillins Allergy Unknown Verified 02/28/19 21:04 polymyxin B Allergy Rash/Hives Verified 02/28/19 21:04 [From Neosporin ([id number])] Sulfa (Sulfonamide Allergy Unknown Verified 02/28/19 21:04 Antibiotics) Physical Exam Vitals: Vital Signs Temp Pulse Pulse Resp BP BP Pulse Ox 03/01/19 12:00 61 03/01/19 11:39 97.1 F L 61 18 110/59 97 03/01/19 08:00 99.1 F 80 18 143/61 92 L 03/01/19 07:58 91 03/01/19 04:00 99.2 F 91 17 133/60 93 L 03/01/19 00:00 117 H 16 02/28/19 23:49 100.1 F H 117 H 16 133/55 93 L 02/28/19 22:52 99.0 F 133 H 16 101/59 95 02/28/19 21:58 135 H 16 122/79 94 L 02/28/19 21:10 140 H 02/28/19 20:52 116/62 93 L 02/28/19 20:48 99.8 F H 113 H 20 81/65 90 L Intake and Output 03/01/19 03/01/19 03/01/19 06:59 14:59 22:59 Intake Total 1500 240 Balance 1500 240 Intake: Intake, IV Titration 1500 Amount Sodium Chloride 0.9% 500 1500 ml 500 ml @ 1000 mls/hr IV Q35M NELA Rx#:[id number] Oral 240 Other: Voiding Method Diaper Diaper # Voids 2 Weight 123.64 kg 123.64 kg GENERAL DESCRIPTION: An elderly female lying in bed, no distress. No tachypnea or accessory muscle of respiration use. HEENT: Shows Pallor , no scleral icterus. Oral mucous membrane is dry. No pharyngeal erythema or thrush NECK: Trachea central, no thyromegaly. LUNGS: Unlabored breathing. Clear to auscultation anteriorly. No wheeze or crackle. HEART: S1, S2, regular rate and rhythm. No loud murmur ABDOMEN: Soft, no tenderness , guarding or rigidity, no organomegaly EXTREMITIES: Left foot plantar wound with no slough tissue minimal surrounding maceration no foul-smelling drainage. SKIN: No rash, no masses palpable. NEUROLOGICAL: The patient is awake, alert, oriented x3, mood and affect normal Results CBC & Chem 7: 02/28/19 21:02 02/28/19 21:02 Labs: Abnormal Lab Results - Last 24 Hours (Table) 02/28/19 02/28/19 02/28/19 Range/Units 21:00 21:02 21:02 WBC 13.2 H (3.8-10.6) k/uL RBC 5.55 H (3.80-5.40) m/uL Hct 49.4 H (34.0-46.0) % Neutrophils # 11.8 H (1.3-7.7) k/uL Lymphocytes # 0.7 L (1.0-4.8) k/uL APTT (22.0-30.0) sec Carbon Dioxide 32 H (22-30) mmol/L BUN 23 H (7-17) mg/dL Glucose 240 H (74-99) mg/dL POC Glucose (mg/dL) (75-99) mg/dL Urine Appearance Turbid H (Clear) Urine Protein 2+ H (Negative) Urine Glucose (UA) 1+ H (Negative) Urine Blood Moderate H (Negative) Urine Nitrite Positive H (Negative) Ur Leukocyte Esterase Large H (Negative) Urine RBC 18 H (0-5) /hpf Urine WBC >182 H (0-5) /hpf Urine WBC Clumps Many H (None) /hpf Urine Bacteria Few H (None) /hpf 02/28/19 03/01/19 03/01/19 Range/Units 21:02 06:17 11:44 WBC (3.8-10.6) k/uL RBC (3.80-5.40) m/uL Hct (34.0-46.0) % Neutrophils # (1.3-7.7) k/uL Lymphocytes # (1.0-4.8) k/uL APTT 18.8 L (22.0-30.0) sec Carbon Dioxide (22-30) mmol/L BUN (7-17) mg/dL Glucose (74-99) mg/dL POC Glucose (mg/dL) 135 H 192 H (75-99) mg/dL Urine Appearance (Clear) Urine Protein (Negative) Urine Glucose (UA) (Negative) Urine Blood (Negative) Urine Nitrite (Negative) Ur Leukocyte Esterase (Negative) Urine RBC (0-5) /hpf Urine WBC (0-5) /hpf Urine WBC Clumps (None) /hpf Urine Bacteria (None) /hpf Microbiology - Last 24 Hours (Table) 02/28/19 21:00 Urine Culture - Preliminary Urine,Catheterized Assessment and Plan Assessment: 1-patient admitted to hospital with fever rigors and chills source is likely urinary in this patient who did have a positive urine and urinary symptoms likely from enteric gram-negative pathogen such as E. coli 2-patient with left foot wound currently with no evidence of any secondary cellulitis 3-patient with a penicillin ALLERGY that would limit the number of antibiotic safe to use Plan: 1-Rocephin dose will be adjusted up to 2 g daily while waiting for the urine cultures to finalize 2-Aquacel silver dressing to the left foot plantar wound to be changed every 48 hour 3-Dr. Jarquin will resume care as of tomorrow to whom the patient is known Time with Patient: Greater than 30
[2019-03-02 06:43] LABS: Glucose,Whole Blood 148 mg/dL (75-99)
[2019-03-02] MEDS: INSULN ASP PRT/INSULIN ASPART 100 UNIT/ML 10 ML VIAL SQ SCH ×2 (07:09→17:28)
[2019-03-02] MEDS: INSULIN ASPART (NovoLOG) 100 UNIT/ML VIAL SQ SCH ×4 (07:11→23:08)
[2019-03-02 07:15] LABS: Basophils # (A) 0.1 k/uL (0-0.2); Basophils % (A) 1 %; Eosinophils # (A) 0.3 k/uL (0-0.7); Eosinophils % (A) 4 %; HCT 44.6 % (34.0-46.0); HGB 14.1 gm/dL (11.4-16.0); Hypochromasia Slight; Lymphocytes # (A) 2.2 k/uL (1.0-4.8); Lymphocytes % (A) 28 %; MCH 28.8 pg (25.0-35.0); MCHC 31.5 g/dL (31.0-37.0); MCV 91.3 fL (80.0-100.0); Mean Platelet Volume 7.1; Monocytes # (A) 0.8 k/uL (0-1.0); Monocytes % (A) 10 %; Neutrophils # (A) 4.3 k/uL (1.3-7.7); Neutrophils % (A) 54 %; Platelet Count 191 k/uL (150-450); RBC 4.88 m/uL (3.80-5.40); RDW 14.6 % (11.5-15.5); WBC 7.9 k/uL (3.8-10.6)
[2019-03-02] MEDS: ATORVASTATIN 40 MG TAB PO SCH (07:29)
[2019-03-02] MEDS: CLOPIDOGREL 75 MG TAB PO SCH (07:29)
[2019-03-02] MEDS: LISINOPRIL 2.5 MG TAB PO SCH (07:29)
[2019-03-02] MEDS: HYDROCHLOROTHIAZIDE 50 MG TAB PO SCH (07:29)
[2019-03-02] MEDS: GABAPENTIN 400 MG CAP PO SCH ×2 (07:29→23:08)
[2019-03-02 07:30] LABS: Albumin 2.9 g/dL (3.5-5.0); Calcium 8.2 mg/dL (8.4-10.2); Potassium 4.2 mmol/L (3.5-5.1); Total Bilirubin 0.7 mg/dL (0.2-1.3); Total Protein 5.9 g/dL (6.3-8.2)
[2019-03-02] MEDS: amLODIPine 5 MG TAB PO SCH (07:30)
[2019-03-02] MEDS: APIXABAN 5 MG TAB PO SCH ×2 (07:30→23:08)
[2019-03-02] MEDS: ESCITALOPRAM 20 MG TAB PO SCH (07:30)
[2019-03-02] MEDS: METOPROLOL TARTRATE 50 MG TAB PO SCH ×2 (07:30→23:08)
[2019-03-02] MEDS: MENTHOL-ZINC OXIDE OINT 113 GM TUBE TOPICAL SCH ×2 (08:31→23:08)
--- NOTE | 2019-03-02 10:21 | P.PN ---
Subjective Progress Note Date: 03/02/19 Lindsey Galarza is a 73 -year-old female female with extensive past medical history significant for chronic lower extremity cellulitis, osteomyelitis and PVD patient was recently admitted to [facility] however she was transferred back to emergency room by EMS due to low oxygen saturation tachycardia and tachypnea, patient had evidence of atrial fibrillation with rapid ventricular response she was started on Cardizem drip and was admitted to telemetry floor cardiology consultation was requested patient also had evidence of urinary tract infection she was started on IV antibiotics. Patient was seen and examined on the telemetry floor on 03/01/2019 she is alert and oriented 3 in no apparent distress at this time there is no fever or chills no headache or dizziness no chest pain no shortness of breath no cough no nausea or vomiting no abdominal pain no diarrhea no burning was urination no frequency and or urgency and no hematuria lateral lower extremity erythema and swelling in the pretibial area patient is wearing protective boots On 03/02/2019 patient's alert and oriented 3 but sleepy. Patient does wake up and follow questions appropriately. Patient has been transitioned to oral an ticoagulation with eliquis. Patient also started on metoprolol. Patient remains on IV antibiotics Rocephin and infectious disease is following. This time patient denies chest pain or shortness of breath. Patient denies nausea vomiting or diarrhea. Patient denies any urinary burning or frequency Objective - Vital Signs Vital signs: Vital Signs Temp 96.6 F L 03/02/19 08:00 Pulse 65 03/02/19 08:00 Resp 18 03/02/19 08:00 BP 130/61 03/02/19 08:00 Pulse Ox 93 L 03/02/19 08:00 Intake & Output 03/01/19 03/02/19 03/02/19 18:59 06:59 18:59 Intake Total 480 480 240 Balance 480 480 240 Weight 123.64 kg 157.7 kg Intake: Oral 480 480 240 Other: Voiding Method Diaper Diaper Diaper # Voids 1 - Exam In general patient is alert and oriented 3 in no apparent distress HEENT head normocephalic and atraumatic Neck is supple no JVD no goiter no lymphadenopathy Chest exam reveals a few scattered rhonchi no wheezing Cardiac exam reveals regular heart sounds S1 and S2 no gallops no murmurs Abdomen is soft nontender no organomegaly with normal bowel sounds Extremity exam reveals no edema no cyanosis or clubbing Neurological examination reveals no gross focal deficit - Labs CBC & Chem 7: 03/02/19 06:40 03/02/19 06:40 Labs: Abnormal Lab Results - Last 24 Hours (Table) 03/01/19 03/01/19 03/01/19 Range/Units 11:44 16:48 21:54 Carbon Dioxide (22-30) mmol/L BUN (7-17) mg/dL Glucose (74-99) mg/dL POC Glucose (mg/dL) 192 H 201 H 103 H (75-99) mg/dL Calcium (8.4-10.2) mg/dL Total Protein (6.3-8.2) g/dL Albumin (3.5-5.0) g/dL 03/02/19 03/02/19 Range/Units 06:40 06:42 Carbon Dioxide 33 H (22-30) mmol/L BUN 25 H (7-17) mg/dL Glucose 160 H (74-99) mg/dL POC Glucose (mg/dL) 148 H (75-99) mg/dL Calcium 8.2 L (8.4-10.2) mg/dL Total Protein 5.9 L (6.3-8.2) g/dL Albumin 2.9 L (3.5-5.0) g/dL Microbiology - Last 24 Hours (Table) 02/28/19 21:02 Blood Culture - Preliminary Blood No Growth after 24 hours 02/28/19 21:00 Urine Culture - Preliminary Urine,Catheterized Assessment and Plan Assessment: #1 atrial fibrillation with rapid ventricular response. Cardizem drip has been DC'd. Patient started on metoprolol and eliquis per cardiology #2 urinary tract infection with sepsis. Patient currently on IV antibiotics Rocephin. Infectious disease following #3 vaginal bleeding patient had a recent D&C #4 bilateral lower extremity cellulitis #5 peripheral vascular disease #6 underlying history of diabetes mellitus #7 underlying history of hypertension #8 underlying history of hyperlipidemia DVT prophylaxis eliquis. GI prophylaxis Protonix I performed an examination of the patient and discussed their management with the Nurse Practitioner. I have reviewed the Nurse Practitioner's notes and agree with the documented findings and plan of care
--- NOTE | 2019-03-02 10:33 | ECHOF ---
Referral Reason:afib MEASUREMENTS -------- HEIGHT: 167.6 cm WEIGHT: 123.4 kg BP: 110/59 RVIDd: 4.8 cm (< 3.3) IVSd: 1.3 cm (0.6 - 1.1) LVIDd: 4.4 cm (3.9 - 5.3) LVPWd: 1.3 cm (0.6 - 1.1) IVSs: 1.7 cm LVIDs: 2.3 cm LVPWs: 1.7 cm Ao Diam: 3.6 cm (2.0 - 3.7) AV Cusp: 2.1 cm (1.5 - 2.6) LA Diam: 4.1 cm (2.7 - 3.8) MV EXCURSION: 17.310 mm (> 18.000) MV EF SLOPE: 78 mm/s (70 - 150) EPSS: 1.0 cm MV E Parmjit: 0.84 m/s MV DecT: 265 ms MV A Parmjit: 0.68 m/s MV E/A Ratio: 1.24 RAP: 5.00 mmHg RVSP: 19.26 mmHg FINDINGS -------- Sinus rhythm. Very suboptimal study, even with contrast. Atypical and anteroapical hypokinesia can not be excluded based on this study. Clinical correlation suggested This was a technically difficult study with suboptimal views. Limited Study The left ventricular size is normal. There is mild concentric left ventricular hypertrophy. Overa ll left ventricular systolic function is normal with, an EF between 55 - 60 %. The right ventricle is severely enlarged. The left atrium was not well visualized. The right atrium was not well visualized. Lumason used Interatrial and interventricular septum intact. The aortic valve was not well visualized. There is no evidence of aortic regurgitation. There is no evidence of aortic stenosis. The mitral valve was not well visualized. Mild tricuspid regurgitation present. There is no evidence of pulmonary hypertension. The right v entricular systolic pressure, as measured by Doppler, is 19.26mmHg. There is no pulmonic regurgitation present. The aortic root size is normal. IVC Not well visulized. Echo free space indicative of a pericardial fat pad. CONCLUSIONS -------- 1. Sinus rhythm. 2. Very suboptimal study, even with contrast. Atypical and anteroapical hypokinesia cannot be exclud ed based on this study. Clinical correlation suggested 3. This was a technically difficult study with suboptimal views. 4. Limited Study 5. The left ventricular size is normal. 6. There is mild concentric left ventricular hypertrophy. 7. Overall left ventricular systolic function is normal with, an EF between 55 - 60 %. 8. The right ventricle is severely enlarged. 9. The left atrium was not well visualized. 10. The right atrium was not well visualized. 11. Lumason used 12. Interatrial and interventricular septum intact. 13. The aortic valve was not well visualized. 14. There is no evidence of aortic regurgitation. 15. There is no evidence of aortic stenosis. 16. The mitral valve was not well visualized. 17. Mild tricuspid regurgitation present. 18. There is no evidence of pulmonary hypertension. 19. The right ventricular systolic pressure, as measured by Doppler, is 19.26mmHg. 20. There is no pulmonic regurgitation present. 21. The aortic root size is normal. 22. IVC Not well visulized. 23. Echo free space indicative of a pericardial fat pad. AUDIT DIRECTOR: Clarice Webb RDCS
[2019-03-02 12:17] LABS: Glucose,Whole Blood 93 mg/dL (75-99)
[2019-03-02 17:13] LABS: Glucose,Whole Blood 221 mg/dL (75-99)
[2019-03-02] MEDS: MULTIVITAMINS, THERA 1 EACH TAB PO SCH (17:28)
[2019-03-02 21:33] LABS: Glucose,Whole Blood 104 mg/dL (75-99)
--- NOTE | 2019-03-02 23:57 | P.PN ---
Subjective Progress Note Date: 03/02/19 Patient is 73 year female [facility] resident has been brought into the ER for evaluation of fever rigors and chills at parent started the day of presentation to the hospital, the patient had denies having any headache or URI symptoms no chest pain shortness of breath or cough no abdominal pain she did have some suprapubic discomfort and burning. 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 Jarquin patient denies having any pain to the left foot wound area and no pain to the lower extremity patient was noted to have some red ness to both the legs with the Santyl to the patient has been evaluated by the physician the patient did have low-grade fever 100.1 patient did have elevated white count she did have positive UA chest x-ray has been reported negative patient was started on Rocephin 1 g daily admitted to the hospital infectious disease was consulted for further recommendation regarding antibiotic therapy 03/02/2019 the patient is feeling somewhat better. She is more awake and alert but does have ongoing weakness. Her fever is improved. There is no urinalysis is grossly abnormal and urine culture shows gram-negative bacilli. Objective - Vital Signs Vital signs: Vital Signs Temp 98.2 F 03/02/19 20:00 Pulse 65 03/02/19 20:00 Resp 18 03/02/19 20:00 BP 168/71 03/02/19 20:00 Pulse Ox 94 L 03/02/19 20:00 Intake & Output 03/02/19 03/02/19 03/03/19 06:59 18:59 06:59 Intake Total 480 462 Balance 480 462 Weight 157.7 kg Intake: Oral 480 462 Other: Voiding Method Diaper Diaper Diaper # Voids 1 1 1 # Bowel Movements 1 1 - Exam superobese 73-year-old woman currently not in distress HEENT: Anicteric conjunctiva are pink and moist nasal mucosa grossly intact without significant lesions, there is no thrush. Neck: The neck is supple without significant lymphadenopathy or thyromegaly. Lungs: Good bilateral air entry without significant crackles or wheezing. There is no significant bronchial sounds. There is no egophony or dullness. Heart: Regular rate and rhythm with an audible S1-S2, no S3 no S4. There is no significant murmur click or rub, PMI was nondisplaced. Abdomen: obesePositive bowel sounds soft and nontender without palpable masses or organomegaly. There was no guarding or rebound.minimal suprapubic tenderness no fl Extremities: The upper extremities have excellent pulses they are symmetric, no significant petechiae or telangiectasia. No splinter hemorrhages were noted.lower extremities have chronic bilateral lower extremity edema without evidence of ulcerations Neuro: Awake alert oriented to person place and time. There are no acute new gross focal sensory motor deficits. - Labs CBC & Chem 7: 03/02/19 06:40 03/02/19 06:40 Labs: Abnormal Lab Results - Last 24 Hours (Table) 03/02/19 03/02/19 03/02/19 Range/Units 06:40 06:40 06:42 Carbon Dioxide 33 H (22-30) mmol/L BUN 25 H (7-17) mg/dL Glucose 160 H (74-99) mg/dL POC Glucose (mg/dL) 148 H (75-99) mg/dL Calcium 8.2 L (8.4-10.2) mg/dL Troponin I 0.067 H* (0.000-0.034) ng/mL Total Protein 5.9 L (6.3-8.2) g/dL Albumin 2.9 L (3.5-5.0) g/dL 03/02/19 03/02/19 03/02/19 Range/Units 10:26 16:19 17:01 Carbon Dioxide (22-30) mmol/L BUN (7-17) mg/dL Glucose (74-99) mg/dL POC Glucose (mg/dL) 221 H (75-99) mg/dL Calcium (8.4-10.2) mg/dL Troponin I 0.072 H* 0.062 H* (0.000-0.034) ng/mL Total Protein (6.3-8.2) g/dL Albumin (3.5-5.0) g/dL 03/02/19 03/02/19 Range/Units 21:31 22:23 Carbon Dioxide (22-30) mmol/L BUN (7-17) mg/dL Glucose (74-99) mg/dL POC Glucose (mg/dL) 104 H (75-99) mg/dL Calcium (8.4-10.2) mg/dL Troponin I 0.042 H* (0.000-0.034) ng/mL Total Protein (6.3-8.2) g/dL Albumin (3.5-5.0) g/dL Microbiology - Last 24 Hours (Table) 02/28/19 21:02 Blood Culture - Preliminary Blood No Growth after 48 hours 02/28/19 21:00 Urine Culture - Preliminary Urine,Catheterized Gram Neg Bacilli Assessment and Plan (1) New onset a-fib Current Visit: Yes Status: Acute Code(s): I48.91 - UNSPECIFIED ATRIAL FIBRILLATION SNOMED Code(s): 62267765 (2) Sepsis Current Visit: Yes Status: Acute Code(s): A41.9 - SEPSIS, UNSPECIFIED O RGANISM SNOMED Code(s): 86734551 (3) UTI (urinary tract infection) Narrative/Plan: 73-year-old woman who has long-standing history of diabetes mellitus superobesity and chronic urinary infections presents to Hospital feeling very poorly. Find evidence of atrial fibrillation with a rapid ventricular response and evidence of sepsis. Gram-negative bacilli have been nicely from her urine and based on prior culture she is on ceftriaxone which should be effective for the recent isolated pathogens. We'll likely need to have a course of this the time of her discharge. Continue local wound care with Aquacel silver to the foot ulceration involving the wound center when possible. Current Visit: Yes Status: Acute Code(s): N39.0 - URINARY TRACT INFECTION, SITE NOT SPECIFIED SNOMED Code(s): 34251576
[2019-03-03 05:31] VITALS: TEMP 98
[2019-03-03 06:27] LABS: Glucose,Whole Blood 120 mg/dL (75-99)
[2019-03-03 06:32] LABS: Basophils # (A) 0.1 k/uL (0-0.2); Basophils % (A) 1 %; Eosinophils # (A) 0.2 k/uL (0-0.7); Eosinophils % (A) 3 %; HCT 42.9 % (34.0-46.0); HGB 13.4 gm/dL (11.4-16.0); Hypochromasia Slight; Lymphocytes # (A) 2.4 k/uL (1.0-4.8); Lymphocytes % (A) 27 %; MCHC 31.3 g/dL (31.0-37.0); MCV 89.3 fL (80.0-100.0); Monocytes # (A) 0.8 k/uL (0-1.0); Monocytes % (A) 9 %; Neutrophils # (A) 5.2 k/uL (1.3-7.7); Neutrophils % (A) 58 %; Platelet Count 208 k/uL (150-450); RBC 4.81 m/uL (3.80-5.40); WBC 8.9 k/uL (3.8-10.6)
[2019-03-03 06:40] LABS: ALT 19 U/L (9-52); AST 30 U/L (14-36); African American GFR (CKD) >90 (>60 ml/min/1.73 sqM); Albumin 2.9 g/dL (3.5-5.0); Alkaline Phosphatase 76 U/L (38-126); Anion Gap 2 mmol/L; Blood Urea Nitrogen 29 mg/dL (7-17); Calcium 8.3 mg/dL (8.4-10.2); Carbon Dioxide 36 mmol/L (22-30); Chloride 101 mmol/L (98-107); Glucose 126 mg/dL (74-99); Potassium 4.3 mmol/L (3.5-5.1); Sodium 139 mmol/L (137-145); Total Bilirubin 0.7 mg/dL (0.2-1.3); Total Protein 5.9 g/dL (6.3-8.2)
[2019-03-03] MEDS: INSULN ASP PRT/INSULIN ASPART 100 UNIT/ML 10 ML VIAL SQ SCH (06:51)
[2019-03-03] MEDS ORDERED: PANTOPRAZOLE 40 MG TABLET PO SCH (07:30)
[2019-03-03 08:46] VITALS: RESP 16
[2019-03-03] MEDS: INSULIN ASPART (NovoLOG) 100 UNIT/ML VIAL SQ SCH ×2 (08:46→12:32)
[2019-03-03] MEDS: APIXABAN 5 MG TAB PO SCH (08:52)
[2019-03-03] MEDS: amLODIPine 5 MG TAB PO SCH (08:52)
[2019-03-03] MEDS: ATORVASTATIN 40 MG TAB PO SCH (08:52)
[2019-03-03] MEDS: CLOPIDOGREL 75 MG TAB PO SCH (08:52)
[2019-03-03] MEDS: ESCITALOPRAM 20 MG TAB PO SCH (08:52)
[2019-03-03] MEDS: METOPROLOL TARTRATE 50 MG TAB PO SCH (08:52)
[2019-03-03] MEDS: LISINOPRIL 2.5 MG TAB PO SCH (08:52)
[2019-03-03] MEDS: HYDROCHLOROTHIAZIDE 50 MG TAB PO SCH (08:53)
[2019-03-03] MEDS: MENTHOL-ZINC OXIDE OINT 113 GM TUBE TOPICAL SCH (08:56)
[2019-03-03] MEDS: GABAPENTIN 400 MG CAP PO SCH (08:56)
[2019-03-03 12:21] LABS: Glucose,Whole Blood 103 mg/dL (75-99)
[2019-03-03 12:36] VITALS: BP 139/90; PULSE 59
--- NOTE | 2019-03-03 14:51 | P.DS ---
Providers Date of admission: 02/28/19 22:47 Expected date of discharge: 03/03/19 Attending physician: Tiffanie Rangel Consults: 02/28/19 23:38 Consult Physician Stat Consulting Provider: [facility] Consult Reason/Comments: new afib rvr Do you want consulting provider notified?: Yes, Notify in am 03/01/19 15:26 Consult Physician Routine Consulting Provider: Deni Jarquin Consult Reason/Comments: SEPSIS Do you want consulting provider notified?: Yes Primary care physician: Tiffanie [facility] Course: Discharge diagnosis #1 atrial fibrillation with rapid ventricular response. Cardizem drip has been DC'd. 2-D echo completed showing EF of 55-60%. Patient started on metoprolol and eliquis per cardiology #2 urinary tract infection with sepsis. Patient currently on IV antibiotics Rocephin. Per infectious disease patient will be discharged on Cefuroxime for 10 days #3 vaginal bleeding patient had a recent D&C #4 bilateral lower extremity cellulitis #5 peripheral vascular disease #6 underlying history of diabetes mellitus #7 underlying history of hypertension #8 underlying history of hyperlipidemia Hospital course Lindsey Galarza is a 73 -year-old female female with extensive past medical history significant for chronic lower extremity cellulitis, osteomyelitis and PVD patient was recently admitted to [facility] however she was transferred back to emergency room by EMS due to low oxygen saturation tachycardia and tachypnea, patient had evidence of atrial fibrillation with rapid ventricular response she was started on Cardizem drip and was admitted to telemetry floor cardiology consultation was requested patient also had evidence of urinary tract infection she was started on IV antibiotics. Patient was seen and examined on the telemetry floor on 03/01/2019 she is alert and oriented 3 in no apparent distress at this time there is no fever or chills no headache or dizziness no chest pain no shortness of breath no cough no nausea or vomiting no abdominal pain no diarrhea no burning was urination no frequency and or urgency and no hematuria lateral lower extremity erythema and swelling in the pretibial area patient is wearing protective boots On 03/02/2019 patient's alert and oriented 3 but sleepy. Patient does wake up and follow questions appropriately. Patient has been transitioned to oral anticoagulation with eliquis. Patient also started on metoprolol. Patient remains on IV antibiotics Rocephin and infectious disease is following. This time patient denies chest pain or shortness of breath. Patient denies nausea vomiting or diarrhea. Patient denies any urinary burning or frequency On 03/03/2019 patient's alert and oriented 3. Patient is wake following commands. Patient is eager to be DC'd back to [facility]. Patient has been afebrile. Patient has been cleared for discharge from infectious disease. Patient will be DC'd on antibiotic for 10 days for urinary tract infection. Per cardiology patient to be maintained on eliquis and Plavix. Patient will be DC'd on metoprolol for rate control. At this time patient denies chest pain or shortness of breath. Patient denies nausea vomiting or diarrhea. Patient denies any urinary burning or frequency. I performed an examination of the patient and discussed their management with the Nurse Practitioner. I have reviewed the Nurse Practitioner's notes and agree with the documented findings and plan of care Patient Condition at Discharge: Stable Plan - Discharge Summary Discharge Rx Participant: No New Discharge Prescriptions: New Cefuroxime Axetil [Cefuroxime] 500 mg PO BID #20 tab Apixaban [Eliquis] 2.5 mg PO BID tablet Atorvastatin [Lipitor] 40 mg PO DAILY tab Metoprolol Tartrate [Lopressor] 50 mg PO BID tab Continue Hydrochlorothiazide 50 mg PO DAILY Escitalopram [Lexapro] 20 mg PO DAILY Clopidogrel [Plavix] 75 mg PO DAILY Ipratropium-Albuterol Nebulize [Duoneb 0.5 mg-3 mg/3 ml Soln] 3 ml INHALATION RT-BID PRN PRN Reason: Shortness Of Breath amLODIPine [Norvasc] 5 mg PO DAILY #30 tab Lisinopril [Zestril] 2.5 mg PO DAILY #30 tab Na Phos,M-B/Na Phos,Di-Ba [Fleet Adult] 133 ml RECTAL ONCE PRN PRN Reason: Constipation Liquical 30 ml PO BID@0800,1700 Bisacodyl [Dulcolax] 10 mg RECTAL DAILY PRN PRN Reason: Constipation Loperamide HCl [Imodium A-D] 2 - 4 mg PO QID PRN PRN Reason: Diarrhea Magnesium Hydroxide [Milk of Magnesia Concentrate] 7,200 mg PO DAILY PRN PRN Reason: Constipation Menthol [Biofreeze] 1 applic TOPICAL DAILY PRN PRN Reason: LEFT SHOULDER PAIN Menthol-Zinc Oxide Oint [Calmoseptine Oint] 1 applic TOPICAL BID Insuln Asp Prt/Insulin Aspart [NovoLOG MIX 70-30 VIAL] 75 unit SQ BID@0700,1730 Multivitamins, Thera [Multivitamin (formulary)] 1 tab PO DAILY@1700 Gabapentin 800 mg PO BID 30 Days #60 tablet Discontinued Lovastatin [Mevacor] 20 mg PO HS Ibuprofen [Motrin Ib] 400 mg PO BID PRN PRN Reason: Pain Discharge Medication List Clopidogrel [Plavix] 75 mg PO DAILY 05/02/18 [History] Escitalopram [Lexapro] 20 mg PO DAILY 05/02/18 [History] Hydrochlorothiazide 50 mg PO DAILY 05/02/18 [History] Ipratropium-Albuterol Nebulize [Duoneb 0.5 mg-3 mg/3 ml Soln] 3 ml INHALATION RT-BID PRN 09/05/18 [History] Lisinopril [Zestril] 2.5 mg PO DAILY #30 tab 09/10/18 [Rx] amLODIPine [Norvasc] 5 mg PO DAILY #30 tab 09/10/18 [Rx] Bisacodyl [Dulcolax] 10 mg RECTAL DAILY PRN 02/28/19 [History] Insuln Asp Prt/Insulin Aspart [NovoLOG MIX 70-30 VIAL] 75 unit SQ BID@0700,1730 02/28/19 [History] Liquical 30 ml PO BID@0800,1700 02/28/19 [History] Loperamide HCl [Imodium A-D] 2 - 4 mg PO QID PRN 02/28/19 [History] Magnesium Hydroxide [Milk of Magnesia Concentrate] 7,200 mg PO DAILY PRN 02/28/19 [History] Menthol [Biofreeze] 1 applic TOPICAL DAILY PRN 02/28/19 [History] Menthol-Zinc Oxide Oint [Calmoseptine Oint] 1 applic TOPICAL BID 02/28/19 [History] Multivitamins, Thera [Multivitamin (formulary)] 1 tab PO DAILY@1700 02/28/19 [History] Na Phos,M-B/Na Phos,Di-Ba [Fleet Adult] 133 ml RECTAL ONCE PRN 02/28/19 [History] Apixaban [Eliquis] 2.5 mg PO BID tablet 03/03/19 [Rx] Atorvastatin [Lipitor] 40 mg PO DAILY tab 03/03/19 [Rx] Cefuroxime Axetil [Cefuroxime] 500 mg PO BID #20 tab 03/03/19 [Rx] Gabapentin 800 mg PO BID 30 Days #60 tablet 03/03/19 [Rx] Metoprolol Tartrate [Lopressor] 50 mg PO BID tab 03/03/19 [Rx] Follow up Appointment(s)/Referral(s): Tiffanie Rangel MD [Primary Care Provider] - 1-2 days Kelton Loo MD [STAFF PHYSICIAN] - 1 Week Deni Jarquin MD [STAFF PHYSICIAN] - 1 Week Activity/Diet/Wound Care/Special Instructions: [place] Discharge Disposition: TRANSFER TO SNF/ECF
[2019-03-03 17:04] LABS: Glucose,Whole Blood 163 mg/dL (75-99)
--- NOTE | 2019-03-03 17:16 | CDI ---
Documentation Clarification Form Date: 03/03/2019 5:00:16 PM From: Mandy Aviles RN, CCDS Admit Date: 02/28/2019 10:47:00 PM Patient Name: Lindsey Galarza Visit Number: [id number] Discharge Date: ATTENTION: The Clinical Documentation Specialists (CDI) and [facility] Coding Staff appreciate your assistance in clarifying documentation. Please respond to the clarification below the line at the bottom and electronically sign. The CDI & [facility] Coding staff will review the response and follow-up if needed. Please note: Queries are made part of the Legal Health Record. If you have any questions, please contact the author of this message via ITS. Dr. Kelton Loo Atrial Fibrillation is documented in the ED, H&P and your consult and further clarification is needed. History/Risk Factors: Hypertension, Diabetes Mellitus, Peripheral vascular disease, Clinical Indicators:73-year-old female who presented with a febrile episode of chills with symptoms of urinary tract infection. In the emergency she was noted to be in atrial fibrillation with rapid ventricular response. She was unaware of the arrhythmia. She had dyspnea on exertion that is chronic and chronic peripheral edema. EKG/telemetry: Atrial fibrillation with rapid ventricular response rate 134 bpm ECHO: Atypical and anteroapical hypokinesia cannot be excluded. EF between 55- 60 % Treatment: IV Cardizem (change to oral) Eliquis PO Plavix PO Norvasc PO In your professional opinion, can you please clarify the type of Atrial Fibrillation, if known? Paroxysmal Persistent Chronic/Permanent Other, please specify XXXX Unable to determine (Last Revision: November 2017) MTDD
[2019-03-03] MEDS ORDERED: APIXABAN 2.5 MG TABLET PO SCH (21:00)
--- NOTE | 2019-03-03 22:42 | P.PN ---
Subjective Progress Note Date: 03/03/19 Patient is 73 year female long-term resident has been brought into the ER for evaluation of fever rigors and chills at parent started the day of presentation to the hospital, the patient had denies having any headache or URI symptoms no chest pain shortness of breath or cough no abdominal pain she did have some suprapubic discomfort and burning. 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 Jarquin patient denies having any pain to the left foot wound area and no pain to the lower extremity patient was noted to have some red ness to both the legs with the Santyl to the patient has been evaluated by the physician the patient did have low-grade fever 100.1 patient did have elevated white count she did have positive UA chest x-ray has been reported negative patient was started on Rocephin 1 g daily admitted to the hospital infectious disease was consulted for further recommendation regarding antibiotic therapy 03/02/2019 the patient is feeling somewhat better. She is more awake and alert but does have ongoing weakness. Her fever is improved. There is urinalysis is grossly abnormal and urine culture shows gram-negative bacilli. 03/03/2019 patient has further improvement. She's no longer having 7 urinary pain. The chronic foot ulceration is stable. Objective - Vital Signs Vital signs: Vital Signs Temp 98.0 F 03/03/19 04:00 Pulse 59 L 03/03/19 12:00 Resp 16 03/03/19 16:00 BP 139/90 03/03/19 12:00 Pulse Ox 95 03/03/19 12:00 Intake & Output 03/03/19 03/03/19 03/04/19 06:59 18:59 06:59 Intake Total 480 Balance 480 Weight 156.6 kg Intake: Oral 480 Other: Voiding Method Diaper Diaper # Voids 1 1 # Bowel Movements 1 - Exam superobese 73-year-old woman currently not in distress HEENT: Anicteric conjunctiva are pink and moist nasal mucosa grossly intact without significant lesions, there is no thrush. Neck: The neck is supple without significant lymphadenopathy or thyromegaly. Lungs: Good bilateral air entry without significant crackles or wheezing. There is no significant bronchial sounds. There is no egophony or dullness. Heart: Regular rate and rhythm with an audible S1-S2, no S3 no S4. There is no significant murmur click or rub, PMI was nondisplaced. Abdomen: obesePositive bowel sounds soft and nontender without palpable masses or organomegaly. There was no guarding or rebound.minimal suprapubic tenderness no fl Extremities: The upper extremities have excellent pulses they are symmetric, no significant petechiae or telangiectasia. No splinter hemorrhages were noted.lower extremities have chronic bilateral lower extremity edema without evidence of ulcerations left foot ulceration has Aquacel silver in place and is without drainage Neuro: Awake alert oriented to person place and time. There are no acute new gross focal sensory motor deficits. - Labs CBC & Chem 7: 03/03/19 05:54 03/03/19 05:54 Labs: Abnormal Lab Results - Last 24 Hours (Table) 03/02/19 03/03/19 03/03/19 Range/Units 22:23 05:54 06:26 Carbon Dioxide 36 H (22-30) mmol/L BUN 29 H (7-17) mg/dL Glucose 126 H (74-99) mg/dL POC Glucose (mg/dL) 120 H (75-99) mg/dL Calcium 8.3 L (8.4-10.2) mg/dL Troponin I 0.042 H* (0.000-0.034) ng/mL Total Protein 5.9 L (6.3-8.2) g/dL Albumin 2.9 L (3.5-5.0) g/dL 03/03/19 03/03/19 Range/Units 11:48 16:44 Carbon Dioxide (22-30) mmol/L BUN (7-17) mg/dL Glucose (74-99) mg/dL POC Glucose (mg/dL) 103 H 163 H (75-99) mg/dL Calcium (8.4-10.2) mg/dL Troponin I (0.000-0.034) ng/mL Total Protein (6.3-8.2) g/dL Albumin (3.5-5.0) g/dL Microbiology - Last 24 Hours (Table) 02/28/19 21:00 Urine Culture - Final Urine,Catheterized Citrobacter freundii 02/28/19 21:02 Blood Culture - Preliminary Blood No Growth after 48 hours Laboratory Results WBC 8.9 k/uL (3.8-10.6) 03/03/19 05:54 RBC 4.81 m/uL (3.80-5.40) 03/03/19 05:54 Hgb 13.4 gm/dL (11.4-16.0) 03/03/19 05:54 Hct 42.9 % (34.0-46.0) 03/03/19 05:54 MCV 89.3 fL (80.0-100.0) 03/03/19 05:54 MCH 28.0 pg (25.0-35.0) 03/03/19 05:54 MCHC 31.3 g/dL (31.0-37.0) 03/03/19 05:54 RDW 15.0 % (11.5-15.5) 03/03/19 05:54 Plt Count 208 k/uL (150-450) 03/03/19 05:54 Neutrophils % 58 % 03/03/19 05:54 Lymphocytes % 27 % 03/03/19 05:54 Monocytes % 9 % 03/03/19 05:54 Eosinophils % 3 % 03/03/19 05:54 Basophils % 1 % 03/03/19 05:54 Neutrophils # 5.2 k/uL (1.3-7.7) 03/03/19 05:54 Lymphocytes # 2.4 k/uL (1.0-4.8) 03/03/19 05:54 Monocytes # 0.8 k/uL (0-1.0) 03/03/19 05:54 Eosinophils # 0.2 k/uL (0-0.7) 03/03/19 05:54 Basophils # 0.1 k/uL (0-0.2) 03/03/19 05:54 Hypochromasia Slight 03/03/19 05:54 PT 10.7 sec (9.0-12.0) 02/28/19 21:02 INR 1.0 (<1.2) 02/28/19 21:02 APTT 18.8 sec (22.0-30.0) L 02/28/19 21:02 Sodium 139 mmol/L (137-145) 03/03/19 05:54 Potassium 4.3 mmol/L (3.5-5.1) 03/03/19 05:54 Chloride 101 mmol/L (98-107) 03/03/19 05:54 Carbon Dioxide 36 mmol/L (22-30) H 03/03/19 05:54 Anion Gap 2 mmol/L 03/03/19 05:54 BUN 29 mg/dL (7-17) H 03/03/19 05:54 Creatinine 0.72 mg/dL (0.52-1.04) 03/03/19 05:54 Est GFR (CKD-EPI)AfAm >90 (>60 ml/min/1.73 sqM) 03/03/19 05:54 Est GFR (CKD-EPI)NonAf 85 (>60 ml/min/1.73 sqM) 03/03/19 05:54 Glucose 126 mg/dL (74-99) H 03/03/19 05:54 POC Glucose (mg/dL) 163 mg/dL (75-99) H 03/03/19 16:44 POC Glu Head Rigger ALEXANDRE Angela Segura 03/03/19 16:44 Plasma Lactic Acid Demian 1.9 mmol/L (0.7-2.0) 02/28/19 21:02 Calcium 8.3 mg/dL (8.4-10.2) L 03/03/19 05:54 Total Bilirubin 0.7 mg/dL (0.2-1.3) 03/03/19 05:54 AST 30 U/L (14-36) 03/03/19 05:54 ALT 19 U/L (9-52) 03/03/19 05:54 Alkaline Phosphatase 76 U/L (38-126) 03/03/19 05:54 Troponin I 0.042 ng/mL (0.000-0.034) H* 03/02/19 22:23 Total Protein 5.9 g/dL (6.3-8.2) L 03/03/19 05:54 Albumin 2.9 g/dL (3.5-5.0) L 03/03/19 05:54 TSH 0.985 mIU/L (0.465-4.680) 02/28/19 21:02 Urine Color Yellow 02/28/19 21:00 Urine Appearance Turbid (Clear) H 02/28/19 21:00 Urine pH 5.5 (5.0-8.0) 02/28/19 21:00 Ur Specific [place] 1.015 (1.001-1.035) 02/28/19 21:00 Urine Protein 2+ (Negative) H 02/28/19 21:00 Urine Glucose (UA) 1+ (Negative) H 02/28/19 21:00 Urine Ketones Negative (Negative) 02/28/19 21:00 Urine Blood Moderate (Negative) H 02/28/19 21:00 Urine Nitrite Positive (Negative) H 02/28/19 21:00 Urine Bilirubin Negative (Negative) 02/28/19 21:00 Urine Urobilinogen <2.0 mg/dL (<2.0) 02/28/19 21:00 Ur Leukocyte Esterase Large (Negative) H 02/28/19 21:00 Urine RBC 18 /hpf (0-5) H 02/28/19 21:00 Urine WBC >182 /hpf (0-5) H 02/28/19 21:00 Urine WBC Clumps Many /hpf (None) H 02/28/19 21:00 Urine Bacteria Few /hpf (None) H 02/28/19 21:00 Microbiology 02/28/19 21:00 Urine,Catheterized Urine Culture - Final Citrobacter freundii 02/28/19 21:02 Blood Blood Culture - Preliminary No Growth after 48 hours Assessment and Plan (1) New onset a-fib Status: Acute Code(s): I48.91 - UNSPECIFIED ATRIAL FIBRILLATION SNOMED Code(s): 32346642 (2) Sepsis Status: Acute Code(s): A41.9 - SEPSIS, UNSPECIFIED ORGANISM SNOMED Code(s): 97075460 (3) UTI (urinary tract infection) Narrative/Plan: 73-year-old woman who has long-standing history of diabetes mellitus superobesity and chronic urinary infections presents to Hospital feeling very poorly. Find evidence of atrial fibrillation with a rapid ventricular response and evidence of sepsis. Gram-negative bacilli have been nicely from her urine and based on prior culture she is on ceftriaxone which should be effective for the recent isolated pathogens. We'll likely need to have a course of this the time of her discharge. Continue local wound care with Aquacel silver to the foot ulceration involving the wound center when possible. 03/03/2019 the urine culture has evidence Citrobacter which is susceptible to cefuroxime. The patient is transitioned to oral antibiotic therapy. Local wound care to the foot ulceration as well as Aquacel silver every Saturday and follow wound center as she has been. Discharged to extended care facility today. Status: Acute Code(s): N39.0 - URINARY TRACT INFECTION, SITE NOT SPECIFIED SNOMED Code(s): 53926018
== END 2019-03-03 18:01 | DRG 872 ==
LOC: EC 20:46 → 3SCARD 22:47
PROVIDERS: ADMIT Internal Medicine; ATTEND Internal Medicine
DX: A41.9 Sepsis, unspecified organism (principal); L03.115 Cellulitis of right lower limb; L03.116 Cellulitis of left lower limb; N39.0 Urinary tract infection, site not specified; E11.51 Type 2 diabetes mellitus with diabetic peripheral angiopathy without gangrene; E11.621 Type 2 diabetes mellitus with foot ulcer; L97.529 Non-pressure chronic ulcer of other part of left foot with unspecified severity; E11.42 Type 2 diabetes mellitus with diabetic polyneuropathy; I48.91 Unspecified atrial fibrillation; E66.01 Morbid (severe) obesity due to excess calories; E78.5 Hyperlipidemia, unspecified; H54.7 Unspecified visual loss; I10 Essential (primary) hypertension; M15.9 Polyosteoarthritis, unspecified; N93.9 Abnormal uterine and vaginal bleeding, unspecified; I87.8 Other specified disorders of veins; Z79.02 Long term (current) use of antithrombotics/antiplatelets; Z79.4 Long term (current) use of insulin; Z79.899 Other long term (current) drug therapy; Z88.1 Allergy status to other antibiotic agents; Z88.5 Allergy status to narcotic agent; Z88.0 Allergy status to penicillin; Z88.2 Allergy status to sulfonamides; Z87.01 Personal history of pneumonia (recurrent); Z87.891 Personal history of nicotine dependence; Z98.42 Cataract extraction status, left eye; Z98.41 Cataract extraction status, right eye; Z96.1 Presence of intraocular lens; Z89.422 Acquired absence of other left toe(s); Z89.421 Acquired absence of other right toe(s); Z81.8 Family history of other mental and behavioral disorders; Z82.49 Family history of ischemic heart disease and other diseases of the circulatory system; Z82.3 Family history of stroke; Z80.0 Family history of malignant neoplasm of digestive organs
CPT/HCPCS: 36415; 71046; 74018; 80053; 81001; 83605; 84443; 84484; 85025; 85610; 85730; 87040; 87077; 87086; 87186; 93005; 93306; 96361; 96365; 96374; 96376; 99291

== ENCOUNTER → 2019-03-20 | Outpatient (CLI) | payer MEDICARE, OTHER ==
--- NOTE | 2019-03-20 12:26 | US ---
EXAMINATION TYPE: US pelvis complete transvag DATE OF EXAM: 03/20/2019 COMPARISON: NONE CLINICAL HISTORY: N95.2 Post Menstrual Bleeding. Recent D & C due to bleeding, patient is still bleed ing. TECHNIQUE: Transvaginal (TV) and Transabdominal (TA) . Date of LMP: post menopausal EXAM MEASUREMENTS: Uterus: 12.9 x 4.9 x 5.7 cm Endometrial Stripe: 1.5 cm Right Ovary: not identified Left Ovary: not identified Bladder appears distended and full of debris. 1. Uterus: Retroverted difficult to see as it appears enlarged and is retroverted. The LINDEN/cervix ar ea endo canal is thickened and irregular. 2. Endometrium: thickened and heterogenous at 1.5 cm 3. Right Ovary: not identified 4. Left Ovary: not identified 5. Bilateral Adnexa: extensive bowel gas obscuring view 6. Posterior cul-de-sac: no free fluid Exam is technically difficult due to large patient body habitus and patient not being mobile. Patient is bleeding heavily. IMPRESSION: 1. Abnormal endometrial thickness and heterogeneity with the endometrium measuring up to 1.5 cm. Inte rnal complexity is thought to represent evolving blood products with recent history of D&C. 2. Urinary bladder is grossly normal with internal echoes seen throughout. This may represent debris or blood products and underlying mass is a consideration. Direct visualization is recommended.
== END | disposition home or self-care (01) ==
LOC: RADUSWWP 11:05
PROVIDERS: ATTEND Family Medicine
DX: R93.89 Abnormal findings on diagnostic imaging of other specified body structures (principal); N95.2 Postmenopausal atrophic vaginitis
CPT/HCPCS: 76830; 76856